=== PATIENT | female | born 1970 | race African-American/Black ===

== ENCOUNTER → 2016-08-21 | Outpatient (CLI) | payer MEDICAID ==
[2016-08-21 09:47] LABS: HEMATOCRIT 34.2 % (36.0-47.0); HGB HCT DIFFERENCE -1.2; MEAN CORPUSCULAR HEMOGLOBIN 25.9 pg (27.0-33.4); MEAN CORPUSCULAR HGB CONC 32.2 g/dL (32.0-36.0); MEAN CORPUSCULAR VOLUME 81 fl (80-97); RED BLOOD COUNT 4.25 10^6/uL (3.72-5.28); RED CELL DISTRIBUTION WIDTH 14.5 % (11.5-14.0); WHITE BLOOD COUNT 4.9 10^3/uL (4.0-10.5)
[2016-08-21 09:55] LABS: APPEARANCE,URINE SLIGHTLY-CLOUDY; BILIRUBIN,URINE NEGATIVE (NEGATIVE); GLUCOSE, URINE NEGATIVE (NEGATIVE); KETONES,URINE NEGATIVE (NEGATIVE); LEUKOCYTE ESTERASE,URINE NEGATIVE (NEGATIVE); NITRITE,URINE NEGATIVE (NEGATIVE); PROTEIN,URINE >=500 mg/dL (NEGATIVE); UROBILINOGEN,URINE NEGATIVE mg/dL (<2.0)
[2016-08-21 10:03] LABS: BACTERIA,URINE TRACE /HPF; RBC,URINE NONE SEEN /HPF
[2016-08-21 10:13] LABS: ANION GAP 14 (5-19); BLOOD UREA NITROGEN 23 mg/dL (7-20); CALCIUM 9.5 mg/dL (8.4-10.2); CARBON DIOXIDE 22 mmol/L (22-30); CHLORIDE 105 mmol/L (98-107); CREATININE RESULT 1.56 mg/dL (0.52-1.25); GLUCOSE 102 mg/dL (75-110); MAGNESIUM 2.1 mg/dL (1.6-2.3); POTASSIUM 4.3 mmol/L (3.6-5.0); SODIUM 141.3 mmol/L (137-145)
[2016-08-21 10:40] LABS: URINE CREATININE 247.9 mg/dL (15-278)
[2016-08-21 11:16] LABS: URINE PROTEIN 328.8 mg/dL (<12)
== END ==
LOC: OD 08:43
PROVIDERS: ATTEND Internal Medicine Nephrology
DX: I12.9 Hypertensive chronic kidney disease with stage 1 through stage 4 chronic kidney disease, or unspecified chronic kidney disease (principal); N18.3 Chronic kidney disease, stage 3 (moderate); R80.9 Proteinuria, unspecified
CPT/HCPCS: 36415; 80048; 81001; 82570; 83735; 84156; 85027

== ENCOUNTER → 2016-10-20 | Outpatient (CLI) | payer MEDICAID ==
[2016-10-20 16:46] LABS: HEMATOCRIT 33.7 % (36.0-47.0); HGB HCT DIFFERENCE -0.7; MEAN CORPUSCULAR HEMOGLOBIN 25.9 pg (27.0-33.4); MEAN CORPUSCULAR HGB CONC 32.7 g/dL (32.0-36.0); MEAN CORPUSCULAR VOLUME 79 fl (80-97); RED BLOOD COUNT 4.26 10^6/uL (3.72-5.28); RED CELL DISTRIBUTION WIDTH 15.6 % (11.5-14.0); WHITE BLOOD COUNT 5.4 10^3/uL (4.0-10.5)
[2016-10-20 16:56] LABS: APPEARANCE,URINE CLOUDY; BILIRUBIN,URINE NEGATIVE (NEGATIVE); GLUCOSE, URINE NEGATIVE (NEGATIVE); KETONES,URINE NEGATIVE (NEGATIVE); LEUKOCYTE ESTERASE,URINE TRACE (NEGATIVE); NITRITE,URINE NEGATIVE (NEGATIVE); PROTEIN,URINE >=500 mg/dL (NEGATIVE); URINE SPECIFIC GRAVITY 1.013; UROBILINOGEN,URINE NEGATIVE mg/dL (<2.0)
[2016-10-20 17:10] LABS: ANION GAP 16 (5-19); BLOOD UREA NITROGEN 17 mg/dL (7-20); CARBON DIOXIDE 22 mmol/L (22-30); CHLORIDE 105 mmol/L (98-107); CREATININE RESULT 1.42 mg/dL (0.52-1.25); GLUCOSE 99 mg/dL (75-110); MAGNESIUM 1.8 mg/dL (1.6-2.3); POTASSIUM 4.5 mmol/L (3.6-5.0); SODIUM 142.9 mmol/L (137-145)
[2016-10-20 17:10] LABS: URINE CREATININE 133.2 mg/dL (15-278)
[2016-10-20 17:22] LABS: URINE PROTEIN 435.8 mg/dL (<12)
== END ==
LOC: OD 15:26
PROVIDERS: ATTEND Internal Medicine Nephrology
DX: N18.3 Chronic kidney disease, stage 3 (moderate) (principal); R80.9 Proteinuria, unspecified; E83.42 Hypomagnesemia
CPT/HCPCS: 36415; 80048; 81001; 82570; 83735; 84156; 85027

== ENCOUNTER → 2016-10-23 | Outpatient (CLI) | payer MEDICAID ==
--- NOTE | 2016-10-24 10:44 | XCELERA REPORT ---
[address] [address] Lower Extremity Venous Evaluation Name: LUCRETIA JOYCE Age: 46 yrs Gender: Female : 1970 Patient Status: Outpatient Patient Location: Study Date: 10/23/2016 03:55 PM Procedure: Color flow and duplex imaging of the veins of the left lower extremity as well as the right Common Femoral vein. Reason For Study: LLE SWELLING Ordering Physician: Paulina BLAS Performed By: Nery Jackson Right Sided Venous Evaluation The right common femoral vein is fully compressible. Spontaneous and phasic flow is present in the right common femoral vein. Left Sided Venous Evaluation Normal vessel filling wall to wall, compression and augmentation as well as Colour flow down to the infrageniculate veins. Interpretation Summary No duplex evidence of DVT or obstruction in the left lower extremity nor in the right Common Femoral vein. : Paulina BLAS > Scotty Perkins
== END ==
LOC: SP 15:34
PROVIDERS: ATTEND Internal Medicine Nephrology
DX: R22.42 Localized swelling, mass and lump, left lower limb (principal)
CPT/HCPCS: 93971

== ENCOUNTER → 2016-11-30 | Outpatient (CLI) | payer MEDICAID ==
[2016-11-30 13:29] LABS: HEMOGLOBIN 11.3 g/dL (12.0-15.5); HGB HCT DIFFERENCE -1.1; MEAN CORPUSCULAR HEMOGLOBIN 25.7 pg (27.0-33.4); MEAN CORPUSCULAR HGB CONC 32.2 g/dL (32.0-36.0); MEAN CORPUSCULAR VOLUME 80 fl (80-97); RED BLOOD COUNT 4.39 10^6/uL (3.72-5.28); RED CELL DISTRIBUTION WIDTH 15.5 % (11.5-14.0); WHITE BLOOD COUNT 4.9 10^3/uL (4.0-10.5)
[2016-11-30 13:53] LABS: ANION GAP 13 (5-19); BLOOD UREA NITROGEN 17 mg/dL (7-20); CALCIUM 9.4 mg/dL (8.4-10.2); CARBON DIOXIDE 21 mmol/L (22-30); CHLORIDE 104 mmol/L (98-107); CREATININE RESULT 1.33 mg/dL (0.52-1.25); GLUCOSE 91 mg/dL (75-110); MAGNESIUM 1.8 mg/dL (1.6-2.3); POTASSIUM 4.5 mmol/L (3.6-5.0); SODIUM 138.1 mmol/L (137-145)
== END ==
LOC: OD 11:37
PROVIDERS: ATTEND Internal Medicine Nephrology
DX: I12.9 Hypertensive chronic kidney disease with stage 1 through stage 4 chronic kidney disease, or unspecified chronic kidney disease (principal); N18.3 Chronic kidney disease, stage 3 (moderate); E83.42 Hypomagnesemia
CPT/HCPCS: 36415; 80048; 83735; 85027

== ENCOUNTER 2017-10-12 20:45 | Emergency (ER) | payer OTHER, MEDICAID ==
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
[2017-10-12] MEDS ORDERED: DIAZEPAM 5 MG TABLET PO ONE (23:33)
[2017-10-12 23:47] VITALS: BP 205/101
== END 2017-10-12 23:53 | disposition home or self-care (01) ==
LOC: EEVIPCON 20:45 → ER 20:45
DX: M62.830 Muscle spasm of back (principal); M54.40 Lumbago with sciatica, unspecified side; V49.00XA Driver injured in collision with unspecified motor vehicles in nontraffic accident, initial encounter; Y93.89 Activity, other specified; Y92.481 Parking lot as the place of occurrence of the external cause; I95.9 Hypotension, unspecified; R51 Headache; R20.2 Paresthesia of skin; F17.200 Nicotine dependence, unspecified, uncomplicated; J45.909 Unspecified asthma, uncomplicated; I10 Essential (primary) hypertension; Z79.899 Other long term (current) drug therapy; Z86.69 Personal history of other diseases of the nervous system and sense organs; Z98.1 Arthrodesis status; Z88.6 Allergy status to analgesic agent; Z88.8 Allergy status to other drugs, medicaments and biological substances; Z88.5 Allergy status to narcotic agent; Z91.012 Allergy to eggs; Z91.048 Other nonmedicinal substance allergy status; Z91.018 Allergy to other foods; Z87.892 Personal history of anaphylaxis; Z88.3 Allergy status to other anti-infective agents
CPT/HCPCS: 99283

== ENCOUNTER → 2018-03-25 | Outpatient (CLI) | payer MEDICAID ==
[2018-03-25 09:18] LABS: URINE AMPHETAMINES SCREEN NEGATIVE; URINE BARBITURATES SCREEN NEGATIVE; URINE BENZODIAZEPINES SCREEN NEGATIVE; URINE COCAINE SCREEN NEGATIVE; URINE PHENCYCLIDINE SCREEN NEGATIVE
[2018-03-25 09:25] LABS: URINE MARIJUANA (THC) SCREEN NEGATIVE
[2018-03-25 10:11] LABS: URINE METHADONE SCREEN UNCONFIRMED POSITIVE
--- NOTE | 2018-03-25 13:18 | EKG REPORT ---
SEVERITY:- ABNORMAL ECG - SINUS RHYTHM FIRST DEGREE AV BLOCK PROBABLE LEFT ATRIAL ABNORMALITY LVH WITH SECONDARY REPOLARIZATION ABNORMALITY BORDERLINE PROLONGED QT INTERVAL : Confirmed by: El Sun MD 25-Mar-2018 13:18:21
== END ==
LOC: OD 07:55
PROVIDERS: ATTEND Physician Assistant
DX: G89.4 Chronic pain syndrome (principal); Z79.891 Long term (current) use of opiate analgesic
CPT/HCPCS: 80307; 80358; 93005; 93010

== ENCOUNTER → 2018-05-16 | Outpatient (CLI) | payer MEDICAID ==
[2018-05-16 10:47] LABS: ALANINE AMINOTRANSFERASE 19 U/L (9-52); ALBUMIN 3.8 g/dL (3.5-5.0); ALKALINE PHOSPHATASE 83 U/L (38-126); ANION GAP 11 (5-19); ASPARTATE AMINO TRANSFERASE 25 U/L (14-36); BILIRUBIN,DIRECT 0.3 mg/dL (0.0-0.4); BILIRUBIN,TOTAL 0.6 mg/dL (0.2-1.3); BLOOD UREA NITROGEN 19 mg/dL (7-20); CALCIUM 9.2 mg/dL (8.4-10.2); CARBON DIOXIDE 21 mmol/L (22-30); CHLORIDE 105 mmol/L (98-107); GLUCOSE 92 mg/dL (75-110); POTASSIUM 4.4 mmol/L (3.6-5.0); SODIUM 137.2 mmol/L (137-145); TOTAL PROTEIN 7.1 g/dL (6.3-8.2)
--- NOTE | 2018-05-16 22:48 | EKG REPORT ---
SEVERITY:- ABNORMAL ECG - SINUS RHYTHM PROBABLE LEFT VENTRICULAR HYPERTROPHY ABNORMAL T, CONSIDER ISCHEMIA, LATERAL LEADS BORDERLINE PROLONGED QT INTERVAL : Confirmed by: Sonu Talamantes 16-May-2018 22:47:19
== END ==
LOC: OD 08:17
PROVIDERS: ATTEND Physician Assistant
DX: G89.4 Chronic pain syndrome (principal)
CPT/HCPCS: 36415; 80053; 93005; 93010

== ENCOUNTER 2018-06-25 15:45 | Day surgery (SDC) | payer MEDICAID ==
[2018-06-25] MEDS ORDERED: MIDAZOLAM 2 MG/2 ML INJ ONE (16:33)
[2018-06-25] MEDS ORDERED: NALOXONE HCL INJ/PF 0.4 MG/1 ML SDV ONE (16:33)
[2018-06-25] MEDS ORDERED: FENTANYL CITRATE INJ/PF 100 MCG/2 ML AMPUL ONE (16:33)
[2018-06-25] MEDS ORDERED: ONDANSETRON HCL INJ/PF 4 MG/2 ML SDV ONE (16:33)
[2018-06-25] MEDS ORDERED: GLUCAGON,HUMAN RECOMB 1 MG INJ ONE (16:33)
[2018-06-25] MEDS ORDERED: DIPHENHYDRAMINE HCL 50 MG/ML VIAL ONE (16:33)
[2018-06-25] MEDS ORDERED: FLUMAZENIL INJ 0.5 MG/5 ML VIAL ONE (16:33)
[2018-06-25] MEDS ORDERED: EPINEPHRINE INJ 1 MG/10 ML DISP.SYRIN ONE (16:33)
--- NOTE | 2018-06-25 17:07 | Operative Report ---
Operative Report DATE OF SURGERY: 06/25/18 Operative Report: Pre-op diagnosis: Heartburn Post-op diagnosis: Antral gastritis Surgery: Esophagogastroduodenoscopy with Medications: Versed 2mg Fentanyl 100mcg IV push Tissue removed: Antral and gastric body biopsy for pathology Procedure: After informed consent obtained from patient, the throat was sprayed with Hurricane and conscious sedation was achieved. The upper endoscope was inserted into the esophagus under direct vision and advanced into the stomach. The duodenum was entered and examined to the second part. Endoscope was then slowly pulled out of the patient as the mucosa was examined into details. Patient tolerated procedure well. Findings Esophagus: Normal Z-line at: 40 cm Antrum: Mild erythema Body: Normal Fundus: Normal Duodenum first part: Normal Duodenum second part: Normal Plan: Await pathology. Continue Prilosec OPERATION: .
[2018-06-25] MEDS ORDERED: PROMETHAZINE HCL INJ 25 MG/1 ML VIAL ONE (17:46)
[2018-06-25 17:59] VITALS: BP 215/127
[2018-06-25] MEDS ORDERED: CLONIDINE HCL 0.1 MG TABLET PO ONE (18:00)
[2018-06-25] MEDS ORDERED: PROMETHAZINE HCL 25 MG TABLET PO ONE (18:00)
[2018-06-25] MEDS ORDERED: METOPROLOL SUCCINATE 50 MG TAB.SR.24H PO ONE (18:00)
== END 2018-06-25 19:18 | disposition home or self-care (01) ==
LOC: END 15:45
PROVIDERS: ATTEND Internal Medicine Gastroenterology
DX: K29.50 Unspecified chronic gastritis without bleeding (principal); K21.9 Gastro-esophageal reflux disease without esophagitis; I10 Essential (primary) hypertension; D64.9 Anemia, unspecified; J45.909 Unspecified asthma, uncomplicated; I20.9 Angina pectoris, unspecified; I42.9 Cardiomyopathy, unspecified; Z79.899 Other long term (current) drug therapy; Z79.51 Long term (current) use of inhaled steroids; I25.2 Old myocardial infarction; K58.9 Irritable bowel syndrome, unspecified; K44.9 Diaphragmatic hernia without obstruction or gangrene
CPT/HCPCS: 43239; 88305 ×2; J2250; J3490 ×3; J3010; J0171; J1200; J1610; J2310; J2405; J2550

== ENCOUNTER 2018-09-28 17:18 | Emergency (ER) | payer MEDICAID ==
[2018-09-28] MEDS ORDERED: PROMETHAZINE HCL 25 MG TABLET PO ONE (17:46)
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
[2018-09-28 18:48] LABS: ABSOLUTE BASOPHILS # (AUTO) 0.1 10^3/uL (0.0-0.2); ABSOLUTE EOSINOPHILS # (AUTO) 0.1 10^3/uL (0.0-0.6); ABSOLUTE LYMPHOCYTES (AUTO) 1.4 10^3/uL (0.5-4.7); ABSOLUTE MONOCYTES (AUTO) 0.3 10^3/uL (0.1-1.4); ABSOLUTE NEUT (AUTO) 3.9 10^3/uL (1.7-8.2); BASOPHILS % (AUTO) 2.2 % (0-2); EOSINOPHILS % (AUTO) 1.8 % (0-6); HEMATOCRIT 32.5 % (36.0-47.0); HEMOGLOBIN 10.4 g/dL (12.0-15.5); LYMPHOCYTES % (AUTO) 23.4 % (13-45); MEAN CORPUSCULAR HEMOGLOBIN 25.1 pg (27.0-33.4); MEAN CORPUSCULAR HGB CONC 31.9 g/dL (32.0-36.0); MEAN CORPUSCULAR VOLUME 79 fl (80-97); MONOCYTES % (AUTO) 5.7 % (3-13); PLATELET COUNT 261 10^3/uL (150-450); RED BLOOD COUNT 4.13 10^6/uL (3.72-5.28); RED CELL DISTRIBUTION WIDTH 15.8 % (11.5-14.0); SEGMENTED NEUTROPHILS % (AUTO) 66.9 % (42-78); TOTAL CELLS COUNTED % (AUTO) 100 %; WHITE BLOOD COUNT 5.8 10^3/uL (4.0-10.5)
[2018-09-28 18:50] LABS: APPEARANCE,URINE SLIGHTLY-CLOUDY; BILIRUBIN,URINE NEGATIVE (NEGATIVE); COLOR,URINE YELLOW; GLUCOSE, URINE NEGATIVE (NEGATIVE); KETONES,URINE NEGATIVE (NEGATIVE); LEUKOCYTE ESTERASE,URINE NEGATIVE (NEGATIVE); NITRITE,URINE NEGATIVE (NEGATIVE); PROTEIN,URINE >=500 mg/dL (NEGATIVE); URINE SPECIFIC GRAVITY 1.024
[2018-09-28 19:05] LABS: ALBUMIN 3.9 g/dL (3.5-5.0); ALKALINE PHOSPHATASE 71 U/L (38-126); ANION GAP 7 (5-19); ASPARTATE AMINO TRANSFERASE 20 U/L (14-36); BILIRUBIN,DIRECT 0.3 mg/dL (0.0-0.4); BILIRUBIN,TOTAL 0.4 mg/dL (0.2-1.3); BLOOD UREA NITROGEN 29 mg/dL (7-20); CALCIUM 9.3 mg/dL (8.4-10.2); CARBON DIOXIDE 26 mmol/L (22-30); CHLORIDE 108 mmol/L (98-107); GLUCOSE 104 mg/dL (75-110); POTASSIUM 4.1 mmol/L (3.6-5.0); TOTAL PROTEIN 7.2 g/dL (6.3-8.2)
[2018-09-28] MEDS ORDERED: PROMETHAZINE HCL INJ 25 MG/1 ML VIAL IM ONE (20:40)
[2018-09-28] MEDS ORDERED: HYDROMORPHONE HCL INJ/PF 2 MG/ML AMPULE IV ONE (20:41)
[2018-09-28] MEDS ORDERED: DEXAMETHASONE SOD PHOS INJ 10 MG/1 ML VIAL IV ONE (20:41)
[2018-09-28] MEDS ORDERED: NORMAL SALINE 500 ML IV ONE (20:41)
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
[2018-09-28 23:15] VITALS: BP 210/121
== END 2018-09-28 23:05 | disposition home or self-care (01) ==
LOC: ER 17:18
DX: R51 Headache (principal); M54.5 Low back pain; G89.29 Other chronic pain; M54.9 Dorsalgia, unspecified; M54.2 Cervicalgia; R11.10 Vomiting, unspecified; I50.9 Heart failure, unspecified; I11.0 Hypertensive heart disease with heart failure; J45.909 Unspecified asthma, uncomplicated
CPT/HCPCS: 99283; 96372; 96361; 96374; 96375; 36415; 85025; 81025; 80053; 81001; J1170; J2550; J3490; J7040; J1100

== ENCOUNTER 2018-10-06 17:55 | Emergency (ER) | payer MEDICAID ==
[2018-10-06] MEDS ORDERED: PROMETHAZINE HCL INJ 25 MG/1 ML VIAL IV ONE (19:44)
--- NOTE | 2018-10-06 19:50 | ER Document Report ---
ED Medical Screen (RME) - General Chief Complaint: Headache Stated Complaint: MIGRAINE Time Seen by Provider: 10/06/18 19:30 Primary Care Provider: VJ LEBLANC MD [Primary Care Provider] - Follow up as needed Notes: Patient is a 48-year-old female with a history of chronic neck and back pain and migraines who presents to the emergency department with back pain, neck pain, and a migraine. She states that she has had her pain for the past 2 weeks. She had neck surgery in May 2015 and back surgery in November 2015. She states that she has titanium rods in them. Her back surgeon is Dr. Goode in [place]. Patient is currently on oxycodone her last dose was around 3:00 this afternoon. States that her oxycodone does not help very much. She is also on Phenergan and her last dose was around noon. Denies any loss of bladder or bowel function. Denies any fever. Exam: Tender neck and spine. I have greeted and performed a rapid initial assessment of this patient. A comprehensive ED assessment and evaluation of the patient, analysis of test results and completion of medical decision making process will be conducted by an additional ED providers. TRAVEL OUTSIDE OF THE [place] IN LAST 30 DAYS: No - Related Data Allergies/Adverse Reactions: aspirin [Aspirin] Allergy (Severe, Verified 06/25/18 16:07) Respiratory arrest diclofenac potassium [From Cataflam] Allergy (Severe, Verified 06/25/18 16:07) Anaphylaxis ibuprofen [From Motrin] Allergy (Severe, Verified 06/25/18 16:07) ketorolac tromethamine [From Toradol] Allergy (Severe, Verified 06/25/18 16:07) naproxen Allergy (Severe, Verified 06/25/18 16:07) prazosin [Prazosin] Allergy (Severe, Verified 06/25/18 16:07) Facial swelling tramadol HCl [From Ultram] Allergy (Severe, Verified 06/25/18 16:07) lisinopril [Lisinopril] Allergy (Intermediate, Verified 06/25/18 16:07) Facial swelling sumatriptan [From Imitrex] Allergy (Intermediate, Verified 06/25/18 16:07) zolpidem tartrate [From Ambien] Allergy (Intermediate, Verified 06/25/18 16:07) lactose Allergy (Mild, Verified 06/25/18 16:07) metoclopramide HCl [From Reglan] Allergy (Mild, Verified 06/25/18 16:07) prochlorperazine edisylate [From Compazine] Allergy (Mild, Verified 06/25/18 16:07) Tremors prochlorperazine maleate [From Compazine] Allergy (Mild, Verified 06/25/18 16:07) Tremors egg [Egg] Allergy (Verified 06/25/18 16:07) medroxyprogesterone acetate [From Depo-Provera] Adverse Reaction (Severe, Verified 06/25/18 16:07) Hemorrhage amlodipine besylate [From Norvasc] Adverse Reaction (Intermediate, Verified 06/25/18 16:07) Migraine nisoldipine [From Sular] Adverse Reaction (Intermediate, Verified 06/25/18 16:07) Hypertension arificial sweetners Allergy (Severe, Uncoded 06/25/18 16:07) polyester material Allergy (Mild, Uncoded 06/25/18 16:07) Urticaria amovig Allergy (Uncoded 09/28/18 17:29) emgalility Allergy (Uncoded 09/28/18 17:29) water Adverse Reaction (Intermediate, Uncoded 06/25/18 16:07) VOMITING Past Medical History - Social History Chew tobacco use (# tins/day): No Frequency of alcohol use: None Drug Abuse: None - Past Medical History Cardiac Medical History: Reports: Hx Congestive Heart Failure, Hx Heart Attack - 2004, Hx Hypercholesterolemia, Hx Hypertension, Hx Peripheral Vascular Disease, Hx Heart Murmur Denies: Hx Atrial Fibrillation, Hx Coronary Artery Disease, Hx Pulmonary Em bolism Pulmonary Medical History: Reports: Hx Asthma, Hx Pneumonia - February 2011, hospitalized Denies: Hx Bronchitis, Hx COPD, Hx Respiratory Failure, Hx Sleep Apnea, Hx Tuberculosis Neurological Medical History: Reports: Hx Migraine. Denies: Hx Cerebrovascular Accident, Hx Seizures Renal/ Medical History: Reports: Hx Renal Insufficiency. Denies: Hx End Stage Renal Disease, Hx Kidney Stones, Hx Ovarian Cysts, Hx Peritoneal Dialysis, Hx Pelvic Inflammatory Disease Malignancy Medical History: Denies: Hx Breast Cancer, Hx Cervical Cancer, Hx Leukemia, Hx Lung Cancer GI Medical History: Reports: Hx Gastroesophageal Reflux Disease, Hx Hiatal Hernia, Hx Irritable Bowel. Denies: Hx Crohn's Disease, Hx Liver Failure, Hx Pancreatitis, Hx Ulcer Musculoskeltal Medical History: Reports Hx Arthritis, Denies Hx Fibromyalgia, Denies Hx Multiple Sclerosis, Denies Hx Muscular Dystrophy Psychiatric Medical History: Reports: Hx Bipolar Disorder, Hx Depression - anxiety, Hx Post Traumatic Stress Disorder Denies: Hx Dementia, Hx Schizophrenia Traumatic Medical History: Denies: Hx Fractures Infectious Medical History: Denies: Hx HIV Past Surgical History: Reports: Hx Section - 3, Hx Cholecystectomy, Hx Genitourinary Surgery, Hx Hysterectomy, Hx Neurologic Surgery - neck, back surg 2016, Hx Oral Surgery, Hx Orthopedic Surgery - Bilateral carpal tunnel release, bilateral ulnar nerve transposition., Hx Tubal Ligation. Denies: Hx Appendectomy, Hx Bowel Surgery, Hx Colostomy, Hx Coronary Artery Bypass Graft, Hx Gastric Bypass Surgery, Hx Herniorrhaphy, Hx Mastectomy, Hx Pacemaker, Hx Tonsillectomy - Immunizations Immunizations up to date: Yes Hx Diphtheria, Pertussis, Tetanus Vaccination: Yes Physical Exam - Vital signs Vitals: Temp Pulse Resp BP Pulse Ox 98.7 F 95 18 217/122 H 100 10/06/18 18:19 10/06/18 18:19 10/06/18 18:19 10/06/18 18:19 10/06/18 18:19 Course - Vital Signs Vital signs: Temp Pulse Resp BP Pulse Ox 98.7 F 95 18 217/122 H 100 10/06/18 18:19 10/06/18 18:19 10/06/18 18:19 10/06/18 18:19 10/06/18 18:19 Doctor's Discharge - Discharge Referrals: VJ LEBLANC MD [Primary Care Provider] - Follow up as needed
[2018-10-06] MEDS ORDERED: PROMETHAZINE HCL 25 MG TABLET PO ONE (19:54)
[2018-10-06 20:44] LABS: ABSOLUTE BASOPHILS # (AUTO) 0.1 10^3/uL (0.0-0.2); ABSOLUTE EOSINOPHILS # (AUTO) 0.1 10^3/uL (0.0-0.6); ABSOLUTE LYMPHOCYTES (AUTO) 1.1 10^3/uL (0.5-4.7); ABSOLUTE MONOCYTES (AUTO) 0.3 10^3/uL (0.1-1.4); ABSOLUTE NEUT (AUTO) 4.6 10^3/uL (1.7-8.2); BASOPHILS % (AUTO) 1.1 % (0-2); EOSINOPHILS % (AUTO) 1.8 % (0-6); HEMATOCRIT 31.1 % (36.0-47.0); HEMOGLOBIN 9.9 g/dL (12.0-15.5); LYMPHOCYTES % (AUTO) 17.3 % (13-45); MEAN CORPUSCULAR HEMOGLOBIN 24.8 pg (27.0-33.4); MEAN CORPUSCULAR VOLUME 78 fl (80-97); MONOCYTES % (AUTO) 5.5 % (3-13); PLATELET COUNT 287 10^3/uL (150-450); RED CELL DISTRIBUTION WIDTH 15.9 % (11.5-14.0); SEGMENTED NEUTROPHILS % (AUTO) 74.3 % (42-78); TOTAL CELLS COUNTED % (AUTO) 100 %; WHITE BLOOD COUNT 6.2 10^3/uL (4.0-10.5)
[2018-10-06 21:21] LABS: ALKALINE PHOSPHATASE 76 U/L (38-126); ANION GAP 11 (5-19); ASPARTATE AMINO TRANSFERASE 25 U/L (14-36); BILIRUBIN,DIRECT 0.3 mg/dL (0.0-0.4); BILIRUBIN,TOTAL 0.5 mg/dL (0.2-1.3); BLOOD UREA NITROGEN 26 mg/dL (7-20); CALCIUM 9.3 mg/dL (8.4-10.2); CARBON DIOXIDE 24 mmol/L (22-30); CHLORIDE 105 mmol/L (98-107); GLUCOSE 101 mg/dL (75-110); POTASSIUM 4.5 mmol/L (3.6-5.0); TOTAL PROTEIN 7.2 g/dL (6.3-8.2)
[2018-10-06] MEDS ORDERED: DEXAMETHASONE SOD PHOS INJ 10 MG/1 ML VIAL IV ONE (22:45)
[2018-10-06] MEDS ORDERED: HYDROMORPHONE HCL INJ/PF 2 MG/ML AMPULE IV ONE (22:46)
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
[2018-10-06] MEDS ORDERED: DEXAMETHASONE SOD PHOS INJ 10 MG/1 ML VIAL IM ONE (22:49)
[2018-10-06] MEDS ORDERED: HYDROMORPHONE HCL INJ/PF 2 MG/ML AMPULE IM ONE (22:50)
[2018-10-06 23:08] VITALS: BP 225/132
== END 2018-10-06 23:09 | disposition home or self-care (01) ==
LOC: ER 17:55
DX: G89.29 Other chronic pain (principal); M54.5 Low back pain; Z79.891 Long term (current) use of opiate analgesic; M54.2 Cervicalgia; D64.9 Anemia, unspecified; N28.9 Disorder of kidney and ureter, unspecified; R51 Headache; R11.10 Vomiting, unspecified; I10 Essential (primary) hypertension; J45.909 Unspecified asthma, uncomplicated; Z98.890 Other specified postprocedural states; Z88.8 Allergy status to other drugs, medicaments and biological substances; Z87.892 Personal history of anaphylaxis; Z88.5 Allergy status to narcotic agent; Z88.6 Allergy status to analgesic agent; Z91.018 Allergy to other foods; Z91.048 Other nonmedicinal substance allergy status; Z86.69 Personal history of other diseases of the nervous system and sense organs
CPT/HCPCS: 36415; 85025; 80053; J1170; J3490; J1100; 96372; 96374; 99283

== ENCOUNTER → 2018-10-26 | Outpatient (CLI) | payer MEDICAID ==
--- NOTE | 2018-10-26 12:12 | RADIOLOGY REPORT (SQ) ---
EXAM DESCRIPTION: CERV SP 3 VIEW OR LESS; L SPINE WHOLE COMPLETED DATE/TIME: 10/26/2018 11:59 am REASON FOR STUDY: (M54.12)CERVICAL RADICULOPATHY;(M54.16)LUMBAR RADICULOPATHY COMPARISON: See below. FINDINGS: Three views cervical spine: 2016 comparison. Mildly limiting artifact from external sourc es particularly on the AP views. Osteopenic. No malalignment or fracture. C4 through C6 anterior i nstrumentation looks grossly intact. Lung apices are clear. Five view lumbosacral spine: Grade 1 listhesis at L4-5. Facet overgrowth likely explains this, no d efinite pars defect allowing for degenerative irregularity. Previous L4 decompression. No fracture. Disc space narrowing at several levels. TECHNICAL DOCUMENTATION: JOB ID: [id number] Reading location - IP/workstation name: [email or web address]
--- NOTE | 2018-10-26 12:12 | RADIOLOGY REPORT (SQ) ---
EXAM DESCRIPTION: CERV SP 3 VIEW OR LESS; L SPINE WHOLE COMPLETED DATE/TIME: 10/26/2018 11:59 am REASON FOR STUDY: (M54.12)CERVICAL RADICULOPATHY;(M54.16)LUMBAR RADICULOPATHY COMPARISON: See below. FINDINGS: Three views cervical spine: 2016 comparison. Mildly limiting artifact from external sourc es particularly on the AP views. Osteopenic. No malalignment or fracture. C4 through C6 anterior i nstrumentation looks grossly intact. Lung apices are clear. Five view lumbosacral spine: Grade 1 listhesis at L4-5. Facet overgrowth likely explains this, no d efinite pars defect allowing for degenerative irregularity. Previous L4 decompression. No fracture. Disc space narrowing at several levels. TECHNICAL DOCUMENTATION: JOB ID: [id number] Reading location - IP/workstation name: [email or web address]
== END ==
LOC: RAD 11:07
PROVIDERS: ATTEND Internal Medicine
DX: M54.12 Radiculopathy, cervical region (principal); M54.16 Radiculopathy, lumbar region
CPT/HCPCS: 72040; 72110

== ENCOUNTER → 2018-11-19 | Outpatient (CLI) | payer MEDICAID ==
[~2018-11-19] MED LIST: DIAZEPAM 5 MG TABLET ONE
--- NOTE | 2018-11-19 17:10 | RADIOLOGY REPORT (SQ) ---
EXAM DESCRIPTION: MRI CERVICAL SPINE WITHOUT COMPLETED DATE/TIME: 11/19/2018 2:01 pm REASON FOR STUDY: CERVICAL RADICULOPATHY (M54.12) M54.12 RADICULOPATHY, CERVICAL REGION COMPARISON: 09/13/2015 TECHNIQUE: Sagittal and Axial imaging includes T1, T2, STIR and gradient echo sequences. LIMITATIONS: None. FINDINGS: ALIGNMENT: Normal. VERTEBRAE: Intact. BONE MARROW: Normal. No marrow replacement or reactive changes. DISCS: Normal. No significant abnormal signal or loss of height. HARDWARE: Anterior cervical fusion C4 through C6. CORD AND BASE OF BRAIN: Normal in size and signal intensity. SOFT TISSUES: No soft tissue masses. C1-C2: No significant spinal stenosis. C2-C3: No significant spinal stenosis or exit foraminal stenosis. C3-C4: Minimal disc osteophyte complex. C4-C5: No significant spinal stenosis or exit foraminal stenosis. C5-C6: No significant spinal stenosis or exit foraminal stenosis. C6-C7: Minimal disc osteophyte complex. C7-T1: No significant spinal stenosis or exit foraminal stenosis. UPPER THORACIC: Incompletely imaged. No significant spinal stenosis or exit foraminal stenosis. OTHER: No other significant finding. IMPRESSION: Surgical changes C4 through C6. Minimal disc osteophyte complexes C3-4 and C6-7 without spinal stenosis or exit foraminal stenosis. TECHNICAL DOCUMENTATION: JOB ID: [id number] [employer]- All Rights Reserved Reading location - IP/workstation name: [email or web address]
== END ==
LOC: RAD 12:15
PROVIDERS: ATTEND Internal Medicine
DX: M54.12 Radiculopathy, cervical region (principal)
CPT/HCPCS: 72141; J3490

== ENCOUNTER 2019-03-27 14:43 | Inpatient (IN) | payer MEDICAID ==
--- NOTE | 2019-03-27 14:59 | ER Document Report ---
ED Medical Screen (RME) - General Chief Complaint: Leg Swelling Stated Complaint: LEG SWELLING Time Seen by Provider: 03/27/19 14:57 Primary Care Provider: FLAVIA MOORE MD [Primary Care Provider] - Follow up as needed Mode of Arrival: Wheelchair Information source: Patient Notes: 49-year-old female presented to ED for increasing swelling to both legs all the way up to the waist. She does have a history of stage III renal failure, congestive heart failure, cardiomegaly, high blood pressure, sleep apnea, COPD, and asthma. She also has chronic migraines IBS. She states his swelling has been going progressively over the last month. He states she went to [facility] pain management this morning and they sent her to the emergency room to be evaluated. Family doctor is Dr. Sheffield I have greeted and performed a rapid initial assessment of this patient. A comprehensive ED assessment and evaluation of the patient, analysis of test results and completion of medical decision making process will be conducted by an additional ED providers. TRAVEL OUTSIDE OF THE [place] IN LAST 30 DAYS: No - Related Data Allergies/Adverse Reactions: aspirin [Aspirin] Allergy (Severe, Verified 06/25/18 16:07) Respiratory arrest diclofenac potassium [From Cataflam] Allergy (Severe, Verified 06/25/18 16:07) Anaphylaxis ibuprofen [From Motrin] Allergy (Severe, Verified 06/25/18 16:07) ketorolac tromethamine [From Toradol] Allergy (Severe, Verified 06/25/18 16:07) naproxen Allergy (Severe, Verified 06/25/18 16:07) prazosin [Prazosin] Allergy (Severe, Verified 06/25/18 16:07) Facial swelling tramadol HCl [From Ultram] Allergy (Severe, Verified 06/25/18 16:07) lisinopril [Lisinopril] Allergy (Intermediate, Verified 06/25/18 16:07) Facial swelling sumatriptan [From Imitrex] Allergy (Intermediate, Verified 06/25/18 16:07) zolpidem tartrate [From Ambien] Allergy (Intermediate, Verified 06/25/18 16:07) lactose Allergy (Mild, Verified 06/25/18 16:07) metoclopramide HCl [From Reglan] Allergy (Mild, Verified 06/25/18 16:07) prochlorperazine edisylate [From Compazine] Allergy (Mild, Verified 06/25/18 16:07) Tremors prochlorperazine maleate [From Compazine] Allergy (Mild, Verified 06/25/18 16:07) Tremors egg [Egg] Allergy (Verified 06/25/18 16:07) medroxyprogesterone acetate [From Depo-Provera] Adverse Reaction (Severe, Verified 06/25/18 16:07) Hemorrhage amlodipine besylate [From Norvasc] Adverse Reaction (Intermediate, Verified 06/25/18 16:07) Migraine nisoldipine [From Sular] Adverse Reaction (Intermediate, Verified 06/25/18 16:07) Hypertension arificial sweetners Allergy (Severe, Uncoded 06/25/18 16:07) polyester material Allergy (Mild, Uncoded 06/25/18 16:07) Urticaria amovig Allergy (Uncoded 09/28/18 17:29) emgalility Allergy (Uncoded 09/28/18 17:29) water Adverse Reaction (Intermediate, Uncoded 06/25/18 16:07) VOMITING Past Medical History - Past Medical History Cardiac Medical History: Reports: Hx Congestive Heart Failure, Hx Heart Attack - 2004, Hx Hypercholesterolemia, Hx Hypertension, Hx Peripheral Vascular Disease, Hx Heart Murmur Denies: Hx Atrial Fibrillation, Hx Coronary Artery Disease, Hx Pulmonary Embolism Pulmonary Medical History: Reports: Hx Asthma, Hx Pneumonia - February 2011, hospitalized Denies: Hx Bronchitis, Hx COPD, Hx Respiratory Failure, Hx Sleep Apnea, Hx Tuberculosis Neurological Medical History: Reports: Hx Migraine. Denies: Hx Cerebrovascular Accident, Hx Seizures, Hx Parkinson's Disease Renal/ Medical History: Reports: Hx Renal Insufficiency. Denies: Hx End Stage Renal Disease, Hx Kidney Stones, Hx Ovarian Cysts, Hx Peritoneal Dialysis, Hx Pelvic Inflammatory Disease Malignancy Medical History: Denies: Hx Breast Cancer, Hx Cervical Cancer, Hx Leukemia, Hx Lung Cancer GI Medical History: Reports: Hx Gastroesophageal Reflux Disease, Hx Hiatal Hernia, Hx Irritable Bowel. Denies: Hx Crohn's Disease, Hx Liver Failure, Hx Pancreatitis, Hx Ulcer Musculoskeltal Medical History: Reports Hx Arthritis, Denies Hx Fibromyalgia, Denies Hx Multiple Sclerosis, Denies Hx Muscular Dystrophy Psychiatric Medical History: Reports: Hx Bipolar Disorder, Hx Depression - anxiety, Hx Post Traumatic Stress Disorder Denies: Hx Dementia, Hx Schizophrenia Traumatic Medical History: Denies: Hx Fractures Infectious Medical History: Denies: Hx HIV Past Surgical History: Reports: Hx Section - 3, Hx Cholecystectomy, Hx Genitourinary Surgery, Hx Hysterectomy, Hx Neurologic Surgery - neck, back surg 2016, Hx Oral Surgery, Hx Orthopedic Surgery - Bilateral carpal tunnel release, bilateral ulnar nerve transposition., Hx Tubal Ligation. Denies: Hx Appendectomy, Hx Bowel Surgery, Hx Colostomy, Hx Coronary Artery Bypass Graft, Hx Gastric Bypass Surgery, Hx Herniorrhaphy, Hx Mastectomy, Hx Pacemaker, Hx Tonsillectomy - Immunizations Immunizations up to date: Yes Hx Diphtheria, Pertussis, Tetanus Vaccination: Yes Physical Exam - Vital signs Vitals: Temp Pulse Resp BP Pulse Ox 99.8 F 111 H 22 H 227/133 H 92 03/27/19 14:52 03/27/19 14:52 03/27/19 14:52 03/27/19 14:52 03/27/19 14:52 Course - Vital Signs Vital signs: Temp Pulse Resp BP Pulse Ox 99.8 F 111 H 22 H 227/133 H 92 03/27/19 14:52 03/27/19 14:52 03/27/19 14:52 03/27/19 14:52 03/27/19 14:52 Doctor's Discharge - Discharge Referrals: FLAVIA MOORE MD [Primary Care Provider] - Follow up as needed
--- NOTE | 2019-03-27 15:57 | RADIOLOGY REPORT (SQ) ---
EXAM DESCRIPTION: CHEST 2 VIEWS COMPLETED DATE/TIME: 03/27/2019 3:20 pm REASON FOR STUDY: Increasing pedal edema COMPARISON: 11/13/2015 EXAM PARAMETERS: NUMBER OF VIEWS: two views TECHNIQUE: Digital Frontal and Lateral radiographic views of the chest acquired. RADIATION DOSE: NA LIMITATIONS: none FINDINGS: LUNGS AND PLEURA: No opacities, masses or pneumothorax. No pleural effusion. MEDIASTINUM AND HILAR STRUCTURES: No masses or contour abnormalities. HEART AND VASCULAR STRUCTURES: Cardiomegaly. No pulmonary edema. BONES: No acute findings. HARDWARE: None in the chest. OTHER: No other significant finding. IMPRESSION: Cardiomegaly without pulmonary edema. TECHNICAL DOCUMENTATION: JOB ID: [id number] [employer]- All Rights Reserved Reading location - IP/workstation name: [email or web address]
[2019-03-27] MEDS ORDERED: ACETAMINOPHEN 325 MG TABLET PO ONE (17:35)
[2019-03-27 17:51] LABS: HEMATOCRIT 30.8 % (36.0-47.0); HEMOGLOBIN 9.9 g/dL (12.0-15.5); MEAN CORPUSCULAR HEMOGLOBIN 23.4 pg (27.0-33.4); MEAN CORPUSCULAR HGB CONC 32.1 g/dL (32.0-36.0); MEAN CORPUSCULAR VOLUME 73 fl (80-97); PLATELET COUNT 322 10^3/uL (150-450); RED BLOOD COUNT 4.23 10^6/uL (3.72-5.28); RED CELL DISTRIBUTION WIDTH 18.5 % (11.5-14.0); WHITE BLOOD COUNT 5.5 10^3/uL (4.0-10.5)
[2019-03-27 18:08] LABS: ALBUMIN 3.5 g/dL (3.5-5.0); ALKALINE PHOSPHATASE 85 U/L (38-126); ANION GAP 8 (5-19); ASPARTATE AMINO TRANSFERASE 30 U/L (14-36); BILIRUBIN,DIRECT 0.1 mg/dL (0.0-0.4); BILIRUBIN,TOTAL 0.7 mg/dL (0.2-1.3); BLOOD UREA NITROGEN 32 mg/dL (7-20); CARBON DIOXIDE 24 mmol/L (22-30); CHLORIDE 107 mmol/L (98-107); GLUCOSE 87 mg/dL (75-110); POTASSIUM 4.2 mmol/L (3.6-5.0); TOTAL PROTEIN 7.4 g/dL (6.3-8.2)
[2019-03-27 18:17] LABS: ABSOLUTE LYMPHOCYTES# (MANUAL) 0.7 10^3/uL (0.5-4.7); ABSOLUTE MONOCYTES # (MANUAL) 0.4 10^3/uL (0.1-1.4); BASOPHILS % (MANUAL) 0 % (0-2); EOSINOPHILS % (MANUAL) 1 % (0-6); LYMPHOCYTES % (MANUAL) 11 % (13-45); MONOCYTES % (MANUAL) 7 % (3-13); SEGMENTED NEUTROPHILS % (MAN) 80 % (42-78); TOTAL CELLS COUNTED 100; TOXIC VACUOLATION PRESENT
[2019-03-27 18:19] LABS: BURR CELLS 1+; SCHISTOCYTES 1+
[2019-03-27 18:21] LABS: ANISOCYTOSIS 1+; POLYCHROMASIA SLIGHT; TARGET CELLS 1+
[2019-03-27 18:24] LABS: OVALOCYTES 1+
[2019-03-27 18:25] LABS: HYPOCHROMASIA 1+; PLATELET COMMENT ADEQUATE
[2019-03-27 18:33] LABS: TROPONIN I 0.262 ng/mL
[2019-03-27 19:08] LABS: APPEARANCE,URINE CLEAR; BILIRUBIN,URINE NEGATIVE (NEGATIVE); COLOR,URINE YELLOW; GLUCOSE, URINE NEGATIVE (NEGATIVE); KETONES,URINE NEGATIVE (NEGATIVE); PROTEIN,URINE >=500 mg/dL (NEGATIVE); URINE SPECIFIC GRAVITY 1.018; UROBILINOGEN,URINE NEGATIVE mg/dL (<2.0)
--- NOTE | 2019-03-27 20:39 | ER Document Report ---
ED General - General Chief Complaint: Swelling of Lower Extremity Stated Complaint: LEG SWELLING Time Seen by Provider: 03/27/19 14:57 Primary Care Provider: FLAVIA MOORE MD [COMMUNITY BASED STAFF] - Follow up as needed Mode of Arrival: Wheelchair Information source: Patient TRAVEL OUTSIDE OF THE [place] IN LAST 30 DAYS: No - HPI Onset: Other - over the last month Severity: Moderate Pain Level: Denies Associated symptoms: Nonproductive cough, Fever, Headache, Leg swelling, Shortness of breath Exacerbated by: Movement Relieved by: Remaining still Similar symptoms previously: Yes - with CHF flares Recently seen / treated by doctor: No Notes: 49 year old female with a history of CHF, CAD, HTN, HLD, PVD, GERD, PTSD, Depression here for 1 month of shortness of breath, increased leg edema, weeping from her legs, and generalized weakness. The patient denies missing her daily medications. The patient denies chills, sweats, productive cough, chest pain, urinary symptoms. The patient does have nausea and vomiting and she was noted to have a fever here in the ER. The patient says her legs are someone red and warm to her but she did not think she was having fevers at home. - Related Data Allergies/Adverse Reactions: aspirin [Aspirin] Allergy (Severe, Verified 06/25/18 16:07) Respiratory arrest diclofenac potassium [From Cataflam] Allergy (Severe, Verified 06/25/18 16:07) Anaphylaxis ibuprofen [From Motrin] Allergy (Severe, Verified 06/25/18 16:07) ketorolac tromethamine [From Toradol] Allergy (Severe, Verified 06/25/18 16:07) naproxen Allergy (Severe, Verified 06/25/18 16:07) prazosin [Prazosin] Allergy (Severe, Verified 06/25/18 16:07) Facial swelling tramadol HCl [From Ultram] Allergy (Severe, Verified 06/25/18 16:07) lisinopril [Lisinopril] Allergy (Intermediate, Verified 06/25/18 16:07) Facial swelling sumatriptan [From Imitrex] Allergy (Intermediate, Verified 06/25/18 16:07) zolpidem tartrate [From Ambien] Allergy (Intermediate, Verified 06/25/18 16:07) lactose Allergy (Mild, Verified 06/25/18 16:07) metoclopramide HCl [From Reglan] Allergy (Mild, Verified 06/25/18 16:07) prochlorperazine edisylate [From Compazine] Allergy (Mild, Verified 06/25/18 16:07) Tremors prochlorperazine maleate [From Compazine] Allergy (Mild, Verified 06/25/18 16:07) Tremors egg [Egg] Allergy (Verified 06/25/18 16:07) medroxyprogesterone acetate [From Depo-Provera] Adverse Reaction (Severe, Verified 06/25/18 16:07) Hemorrhage amlodipine besylate [From Norvasc] Adverse Reaction (Intermediate, Verified 06/25/18 16:07) Migraine nisoldipine [From Sular] Adverse Reaction (Intermediate, Verified 06/25/18 16:07) Hypertension arificial sweetners Allergy (Severe, Uncoded 06/25/18 16:07) polyester material Allergy (Mild, Uncoded 06/25/18 16:07) Urticaria amovig Allergy (Uncoded 09/28/18 17:29) emgalility Allergy (Uncoded 09/28/18 17:29) water Adverse Reaction (Intermediate, Uncoded 06/25/18 16:07) VOMITING Home Medications: Hydralazine, Clonidine, Losartan, Topril. Past Medical History - General Information source: Patient - Social History Smoking Status: Never Smoker Frequency of alcohol use: None Drug Abuse: None Family History: Reviewed & Not Pertinent Patient has suicidal ideation: No Patient has homicidal ideation: No - Past Medical History Cardiac Medical History: Reports: Hx Congestive Heart Failure, Hx Heart Attack - 2004, Hx Hypercholesterolemia, Hx Hypertension, Hx Peripheral Vascular Disease, Hx Heart Murmur Denies: Hx Atrial Fibrillation, Hx Coronary Artery Disease, Hx Pulmonary Embolism Pulmonary Medical History: Reports: Hx Asthma, Hx Pneumonia - February 2011, hospitalized Denies: Hx Bronchitis, Hx COPD, Hx Respiratory Failure, Hx Sleep Apnea, Hx Tuberculosis Neurological Medical History: Reports: Hx Migraine. Denies: Hx Cerebrovascular Accident, Hx Seizures, Hx Parkinson's Disease Renal/ Medical History: Reports: Hx Renal Insufficiency. Denies: Hx End Stage Renal Disease, Hx Kidney Stones, Hx Ovarian Cysts, Hx Peritoneal Dialysis, Hx Pelvic Inflammatory Disease Malignancy Medical History: Denies: Hx Breast Cancer, Hx Cervical Cancer, Hx Leukemia, Hx Lung Cancer GI Medical History: Reports: Hx Gastroesophageal Reflux Disease, Hx Hiatal Hernia, Hx Irritable Bowel. Denies: Hx Crohn's Disease, Hx Liver Failure, Hx Pancreatitis, Hx Ulcer Musculoskeletal Medical History: Reports Hx Arthritis, Denies Hx Fibromyalgia, Denies Hx Multiple Sclerosis, Denies Hx Muscular Dystrophy Psychiatric Medical History: Reports: Hx Bipolar Disorder, Hx Depression - anxiety, Hx Post Traumatic Stress Disorder Denies: Hx Dementia, Hx Schizophrenia Traumatic Medical History: Denies: Hx Fractures Infectious Medical History: Denies: Hx HIV Past Surgical History: Reports: Hx Section - 3, Hx Cholecystectomy, Hx Genitourinary Surgery, Hx Hysterectomy, Hx Neurologic Surgery - neck, back surg 2016, Hx Oral Surgery, Hx Orthopedic Surgery - Bilateral carpal tunnel release, bilateral ulnar nerve transposition., Hx Tubal Ligation. Denies: Hx Appendectomy, Hx Bowel Surgery, Hx Colostomy, Hx Coronary Artery Bypass Graft, Hx Gastric Bypass Surgery, Hx Herniorrhaphy, Hx Mastectomy, Hx Pacemaker, Hx Tonsillectomy - Immunizations Immunizations up to date: Yes Hx Diphtheria, Pertussis, Tetanus Vaccination: Yes Hx Pneumococcal Vaccination: 12/05/06 Review of Systems - Review of Systems Constitutional: Chills, Weakness EENT: No symptoms reported Cardiovascular: Dyspnea, Edema, Paroxysmal Nocturnal Dysp. denies: Chest pain Respiratory: Cough, Short of breath Gastrointestinal: No symptoms reported Genitourinary: No symptoms reported Female Genitourinary: No symptoms reported Musculoskeletal: No symptoms reported Skin: Other - redness and warmth of lower legs, skin weeping from edema Hematologic/Lymphatic: No symptoms reported Neurological/Psychological: Headaches -: Yes All other systems reviewed and negative Physical Exam - Vital signs Vitals: Temp Pulse Resp BP Pulse Ox 99.8 F 111 H 22 H 227/133 H 92 03/27/19 14:52 03/27/19 14:52 03/27/19 14:52 03/27/19 14:52 03/27/19 14:52 - Notes Notes: GENERAL: Chronically ill appearing, Obese, well-nourished and in no acute distress. Wearing sunglasses inside. HEAD: Atraumatic, normocephalic. EYES: Pupils equal round and reactive to light, extraocular movements intact, sclera anicteric, conjunctiva are normal. ENT: Nares patent, oropharynx clear without exudates. Moist mucous membranes. NECK: Normal range of motion, supple without lymphadenopathy or JVD. LUNGS: Breath sounds clear to auscultation bilaterally and equal. No wheezes rales or rhonchi. HEART: Regular rate and rhythm without murmurs, rubs or gallops. ABDOMEN: Soft, nontender, normoactive bowel sounds. No guarding, no rebound. No masses appreciated. EXTREMITIES: Normal range of motion, no pitting or edema. No clubbing or cyanosis. NEUROLOGICAL: Cranial nerves II through XII grossly intact. Normal speech, normal gait. PSYCH: Normal mood, normal affect. SKIN: Edema of bilateral legs to mid shins. Open blisters/weeping skin from leg edema. Mild to moderate erythema of lower legs with warmth bilaterally. Course - Re-evaluation Re-evalutation: 03/27/19 21:58 The patient is in heart failure and she presented very hypertensive. Patient was treated in the ER with IV Labetolol, IV Hydralazine, IV, Lasix. Patient has a positive Trop which is higher then her baseline but she is not having chest pain so this is likely demand ischemia. The patient spiked a fever in this ER. UA and chest xray unremarkable. Will culture and treat (Clinda) for leg cellulites as this seems like the most likely course. Flu swab pending. Patient admitted to a Tele Bed. Patient's BP responded well to the IV meds. - Vital Signs Vital signs: Temp Pulse Resp BP Pulse Ox 99.8 F 112 H 18 164/91 H 97 03/27/19 21:35 03/27/19 17:22 03/27/19 21:46 03/27/19 21:46 03/27/19 21:46 - Laboratory Result Diagrams: 03/27/19 17:16 03/27/19 17:16 Laboratory results interpreted by mn: 03/27/19 03/27/19 03/27/19 17:16 17:16 17:16 Hgb 9.9 L Hct 30.8 L MCV 73 L MCH 23.4 L RDW 18.5 H Seg Neuts % (Manual) 80 H Lymphocytes % (Manual) 11 L BUN 32 H Creatinine 2.31 H Est GFR ( Amer) 27 L Est GFR (MDRD) Non-Af 22 L NT-Pro-B Natriuret Pep 59609 H Urine Protein Urine Blood 03/27/19 18:43 Hgb Hct MCV MCH RDW Seg Neuts % (Manual) Lymphocytes % (Manual) BUN Creatinine Est GFR ( Amer) Est GFR (MDRD) Non-Af NT-Pro-B Natriuret Pep Urine Protein >=500 H Urine Blood SMALL H Critical Care Note - Critical Care Note Total time excluding time spent on procedures (mins): 35 Discharge - Discharge Clinical Impression: NSTEMI (non-ST elevated myocardial infarction) Heart failure Qualifiers: Heart failure type: other Qualified Code(s): I50.89 - Other heart failure Hypertension Qualifiers: Hypertension type: unspecified Qualified Code(s): I10 - Essential (primary) hypertension Condition: Stable Disposition: ADMITTED INPATIENT Unit Admitted: Telemetry Referrals: FLAVIA MOORE MD [COMMUNITY BASED STAFF] - Follow up as needed
[2019-03-27] MEDS ORDERED: LABETALOL HCL INJ 20 MG/4 ML DISP.SYRIN IV ONE (20:40)
[2019-03-27] MEDS ORDERED: HYDRALAZINE HCL INJ/PF 20 MG/1 ML SDV IV ONE (20:46)
[2019-03-27] MEDS ORDERED: FUROSEMIDE INJ/PF 40 MG/4 ML SDV IV ONE (20:50)
[2019-03-27 21:14] LABS: VENOUS BLOOD BASE EXCESS -3.2 mmol/L; VENOUS BLOOD HCO3 21.5 mmol/L (20-32); VENOUS BLOOD PCO2 37.2 mmHg (35-63); VENOUS BLOOD PH 7.38 (7.30-7.42)
[2019-03-27] MEDS ORDERED: BUTALB/ACETAMINOPHEN/CAFFEINE 1 TAB EACH PO ONE (21:25)
[2019-03-27] MEDS ORDERED: ONDANSETRON 4 MG TAB.RAPDIS PO ONE (21:26)
[2019-03-27] MEDS ORDERED: PROMETHAZINE HCL 25 MG TABLET PO ONE (21:44)
[2019-03-27] MEDS ORDERED: CLINDAMYCIN 600 MG/D5W RTU 600 MG/50 ML RTUPB IV ONE (21:45)
[2019-03-27] MEDS ORDERED: NITROGLYCERIN/D5W 50 MG/250 ML RTUINJ IV PRN (22:33)
[2019-03-27 22:36] LABS: A TYPE INFLUENZA AG NEGATIVE (NEGATIVE); B INFLUENZA AG NEGATIVE (NEGATIVE)
[2019-03-27 23:00] LABS: PHOSPHORUS 3.2 mg/dL (2.5-4.5)
[2019-03-27 23:16] LABS: URINE AMPHETAMINES SCREEN NEGATIVE; URINE BARBITURATES SCREEN NEGATIVE; URINE BENZODIAZEPINES SCREEN NEGATIVE; URINE COCAINE SCREEN NEGATIVE; URINE MARIJUANA (THC) SCREEN NEGATIVE; URINE METHADONE SCREEN NEGATIVE; URINE PHENCYCLIDINE SCREEN NEGATIVE
[2019-03-27 23:17] LABS: FREE T4 (FREE THYROXINE) 1.4 ng/dL (0.78-2.19)
[2019-03-27 23:23] LABS: ARTERIAL BLOOD BASE EXCESS -3.2 mmol/L; ARTERIAL BLOOD FIO2 ROOM AIR; ARTERIAL BLOOD H2CO3 0.89 mmol/L (1.05-1.35); ARTERIAL BLOOD O2 SATURATION 93.9 % (94-98); ARTERIAL BLOOD PCO2 29.7 mmHg (35-45); ARTERIAL BLOOD PH 7.45 (7.35-7.45); ARTERIAL BLOOD TOTAL CO2 20.9 mmol/L (21-25)
[2019-03-27 23:31] LABS: THYROID STIMULATING HORMONE 5.24 uIU/mL (0.47-4.68)
[2019-03-27 23:38] LABS: INTERNATIONAL RATION (INR) 1.24; PROTHROMBIN TIME 15.7 SEC (11.4-15.4)
[2019-03-27 23:39] LABS: PARTIAL THROMBOPLASTIN TIME 31.4 SEC (23.5-35.8)
[2019-03-27 23:47] LABS: CREATINE KINASE MB 2.48 ng/mL (<4.55); TROPONIN I 0.214 ng/mL
[2019-03-28] MEDS: HEPARIN SOD (PORCINE) 5,000 UNIT/ML 1 ML VIAL SUBCUT SCH ×4 (00:13→22:17)
[2019-03-28] MEDS ORDERED: ALBUTEROL SULFATE 0.083% NEB 2.5 MG/3 ML AMPUL NEB PRN (04:53)
[2019-03-28] MEDS ORDERED: DIAZEPAM 5 MG TABLET PO PRN (04:53)
[2019-03-28] MEDS: CLINDAMYCIN 300 MG/D5W RTU 300 MG/50 ML RTUPB IV SCH ×3 (05:42→22:17)
[2019-03-28] MEDS: TIZANIDINE HCL 4 MG TABLET PO SCH ×3 (05:43→22:16)
[2019-03-28] MEDS: HYDRALAZINE HCL 50 MG TABLET PO SCH ×3 (05:44→22:17)
[2019-03-28] MEDS: PROMETHAZINE HCL 25 MG TABLET PO PRN ×2 (05:50→13:09)
[2019-03-28] MEDS ORDERED: BUTORPHANOL TARTRATE IH SCH (06:00)
[2019-03-28 06:05] LABS: ALKALINE PHOSPHATASE 75 U/L (38-126); ANION GAP 9 (5-19); ASPARTATE AMINO TRANSFERASE 26 U/L (14-36); BILIRUBIN,DIRECT 0.4 mg/dL (0.0-0.4); BILIRUBIN,TOTAL 0.6 mg/dL (0.2-1.3); BLOOD UREA NITROGEN 32 mg/dL (7-20); CALCIUM 8.6 mg/dL (8.4-10.2); CARBON DIOXIDE 19 mmol/L (22-30); CHLORIDE 109 mmol/L (98-107); CHOLESTEROL 120.02 mg/dL (0-200); CREATINE KINASE 142 U/L (30-135); GLUCOSE 108 mg/dL (75-110); POTASSIUM 3.6 mmol/L (3.6-5.0); TOTAL PROTEIN 6.7 g/dL (6.3-8.2); TRIGLYCERIDES 92 mg/dL (<150)
[2019-03-28 06:16] LABS: DIRECT LDL 64 mg/dL (<100)
[2019-03-28 06:17] LABS: CREATINE KINASE MB 1.91 ng/mL (<4.55); TROPONIN I 0.19 ng/mL
[2019-03-28 07:05] LABS: HEMATOCRIT 28.5 % (36.0-47.0); HEMOGLOBIN 9.1 g/dL (12.0-15.5); MEAN CORPUSCULAR HGB CONC 31.7 g/dL (32.0-36.0); MEAN CORPUSCULAR VOLUME 72 fl (80-97); PLATELET COUNT 278 10^3/uL (150-450); RED BLOOD COUNT 3.94 10^6/uL (3.72-5.28); RED CELL DISTRIBUTION WIDTH 18.3 % (11.5-14.0); WHITE BLOOD COUNT 5.4 10^3/uL (4.0-10.5)
[2019-03-28 07:10] LABS: ABSOLUTE LYMPHOCYTES# (MANUAL) 0.9 10^3/uL (0.5-4.7); ABSOLUTE MONOCYTES # (MANUAL) 0.3 10^3/uL (0.1-1.4); BASOPHILS % (MANUAL) 0 % (0-2); EOSINOPHILS % (MANUAL) 0 % (0-6); LYMPHOCYTES % (MANUAL) 15 % (13-45); MONOCYTES % (MANUAL) 6 % (3-13); SEGMENTED NEUTROPHILS % (MAN) 77 % (42-78); TOTAL CELLS COUNTED 100
[2019-03-28 07:11] LABS: ANISOCYTOSIS 1+; HYPOCHROMASIA SLIGHT; PLATELET LARGE PRESENT; POIKILOCYTOSIS SLIGHT; POLYCHROMASIA SLIGHT; SCHISTOCYTES SLIGHT; TARGET CELLS SLIGHT
[2019-03-28 07:12] LABS: PLATELET COMMENT ADEQUATE
[2019-03-28] MEDS ORDERED: INFLUENZA QUAD (6MOS+) 2019-20 VAC 0.5 ML SYR IM ONE (07:40)
[2019-03-28] MEDS ORDERED: (PENDING PHARMACY ID) (Fluticasone/Salmeterol 1 INH) BC SCH (10:00)
[2019-03-28] MEDS ORDERED: FUROSEMIDE 40 MG TABLET PO SCH (10:00)
[2019-03-28] MEDS ORDERED: DOXAZOSIN MESYLATE 8 MG PO SCH (10:00)
[2019-03-28 10:35] LABS: URINE CREATININE 110.8 mg/dL (15-278)
[2019-03-28] MEDS: OXYCODONE HCL IR 5 MG TABLET PO SCH ×3 (10:39→19:47)
[2019-03-28 11:26] LABS: UR PRO/CREAT RATIO RESULT 9.6 mg/mg (0.0-0.2)
[2019-03-28] MEDS ORDERED: PROMETHAZINE HCL 25 MG TABLET PO PRN (12:05)
[2019-03-28] MEDS ORDERED: TRIMETHOBENZAMIDE HCL 300 MG CAPSULE PO PRN (12:05)
[2019-03-28 12:21] LABS: CREATINE KINASE MB 1.66 ng/mL (<4.55)
[2019-03-28 12:37] LABS: TROPONIN I 0.167 ng/mL
--- NOTE | 2019-03-28 12:59 | EKG REPORT ---
SEVERITY:- ABNORMAL ECG - SINUS RHYTHM PROBABLE LEFT VENTRICULAR HYPERTROPHY BORDERLINE PROLONGED QT INTERVAL : Confirmed by: Sonu Talamantes 28-Mar-2019 12:57:55
[2019-03-28] MEDS: FLUTICASONE/VILANTEROL 200-25 MCG/DOSE IH SCH (13:02)
[2019-03-28] MEDS: FAMOTIDINE 20 MG TABLET PO SCH ×2 (13:03→19:45)
[2019-03-28] MEDS: PANTOPRAZOLE SODIUM 40 MG TABLET.DR PO SCH ×2 (13:03→19:45)
[2019-03-28] MEDS: CLONAZEPAM 1 MG TABLET PO SCH ×2 (13:05→19:47)
[2019-03-28] MEDS: NIFEDIPINE 30 MG TAB.ER.24 PO SCH ×2 (13:05→19:47)
[2019-03-28] MEDS: CLONIDINE HCL 0.1 MG TABLET PO SCH ×3 (13:05→19:46)
[2019-03-28] MEDS: METOPROLOL SUCCINATE 50 MG TAB.SR.24H PO SCH ×2 (13:06→19:47)
[2019-03-28] MEDS: DOXAZOSIN MESYLATE 4 MG TABLET PO SCH ×2 (13:11→19:45)
[2019-03-28] MEDS: CETIRIZINE 10 MG TABLET PO SCH (13:11)
[2019-03-28] MEDS: ALBUTEROL SULFATE HFA (90 MCG/PUFF) 200 PUFF/8.5 GM MDI IH SCH ×3 (15:30→22:19)
[2019-03-28] MEDS ORDERED: NORMAL SALINE 250 ML with FUROSEMIDE 250 MG IV PRN ×2 (17:28)
[2019-03-28] MEDS: MONTELUKAST SODIUM 10 MG TABLET PO SCH (19:45)
--- NOTE | 2019-03-28 20:58 | PDOC H&P ---
History of Present Illness Admission Date/PCP: 03/27/19 22:11 VJ LEBLANC MD History of Present Illness: LUCRETIA JOYCE is a 49 year old female,She came to the emergency room for evaluation of swelling, fever, shortness of breath, in the emergency room when she presented the systolic blood pressure was more than 200. Patient with a long history of poorly controlled blood pressure, the initial urinalysis demonstrated significant proteinuria, more than 500, the urine protein creatinine ratio, is 9.6 consistent with nephrotic syndrome. She also has severe cellulitis of both legs, there is tremendous anasarca affecting both legs the abdomen, she was also found to have elevated serum troponin. Past Medical History Cardiac Medical History: Reports: Congestive Heart Failure, Myocardial Infarction - 2004, Hyperlipidema, Hypertension, Peripheral Vascular Disease, Heart Murmur Pulmonary Medical History: Reports: Asthma, Pneumonia - February 2011, hospitalized Neurological Medical History: Reports: Migraine GI Medical History: Reports: Gastroesophageal Reflux Disease, Hiatal Hernia Musculoskeltal Medical History: Reports: Arthritis Psychiatric Medical History: Reports: Bipolar Disorder, Depression, Post Traumatic Stress Disorder Hematology: Reports: Anemia Past Surgical History Past Surgical History: Reports: Section - 3, Cholecystectomy, Hysterectomy, Orthopedic Surgery - Bilateral carpal tunnel release, bilateral ulnar nerve transposition., Tubal Ligation Social History Smoking Status: Current Every Day Smoker Electronic Cigarette use?: No Frequency of Alcohol Use: Rare Hx Recreational Drug Use: No Drugs: None Hx Prescription Drug Abuse: No - Advance Directive Resuscitation Status: Full Code Family History Family History: Reviewed & Not Pertinent Parental Family History Reviewed: Yes Children Family History Reviewed: Yes Sibling(s) Family History Reviewed.: Yes Medication/Allergy Home Medications: Omeprazole [Prilosec] 40 mg PO BID 10/29/14 Clonidine HCl [Catapres] 0.3 mg PO Q8 05/09/15 Montelukast Sodium 10 mg PO QPM 05/09/15 Oxycodone HCl [Oxycodone HCl 10 MG Tablet] 10 mg PO Q6HP PRN 06/25/18 Albuterol Sulfate [Proair HFA Inhalation Aerosol 8.5 gm MDI] 2 puff IH QID 03/28/19 Butorphanol Tartrate 1 spray NASL DAILYP PRN MDD 1 SRAY PER DAY 03/28/19 Cetirizine HCl [Zyrtec 10 mg Tablet] 10 mg PO DAILY 03/28/19 Cuvposa 5 ml PO TID 03/28/19 Doxazosin Mesylate [Cardura 4 mg Tablet] 8 mg PO BID 03/28/19 Fluticasone/Salmeterol [Advair 500-50 Diskus 14 Dose/Diskus] 1 puff IH BID 03/28/19 Promethazine HCl [Phenergan 25 mg Tablet] 25 mg PO Q12HP PRN 03/28/19 Trimethobenzamide HCl [Tigan 300 mg Capsule] 300 mg PO TIDP PRN 03/28/19 Allergies/Adverse Reactions: aspirin [Aspirin] Allergy (Severe, Verified 06/25/18 16:07) Respiratory arrest diclofenac potassium [From Cataflam] Allergy (Severe, Verified 06/25/18 16:07) Anaphylaxis ibuprofen [From Motrin] Allergy (Severe, Verified 06/25/18 16:07) ketorolac tromethamine [From Toradol] Allergy (Severe, Verified 06/25/18 16:07) naproxen Allergy (Severe, Verified 06/25/18 16:07) prazosin [Prazosin] Allergy (Severe, Verified 06/25/18 16:07) Facial swelling tramadol HCl [From Ultram] Allergy (Severe, Verified 06/25/18 16:07) lisinopril [Lisinopril] Allergy (Intermediate, Verified 06/25/18 16:07) Facial swelling sumatriptan [From Imitrex] Allergy (Intermediate, Verified 06/25/18 16:07) zolpidem tartrate [From Ambien] Allergy (Intermediate, Verified 06/25/18 16:07) lactose Allergy (Mild, Verified 06/25/18 16:07) metoclopramide HCl [From Reglan] Allergy (Mild, Verified 06/25/18 16:07) prochlorperazine edisylate [From Compazine] Allergy (Mild, Verified 06/25/18 16:07) Tremors prochlorperazine maleate [From Compazine] Allergy (Mild, Verified 06/25/18 16:07) Tremors egg [Egg] Allergy (Verified 06/25/18 16:07) medroxyprogesterone acetate [From Depo-Provera] Adverse Reaction (Severe, Verified 06/25/18 16:07) Hemorrhage amlodipine besylate [From Norvasc] Adverse Reaction (Intermediate, Verified 06/25/18 16:07) Migraine nisoldipine [From Sular] Adverse Reaction (Intermediate, Verified 06/25/18 16:07) Hypertension arificial sweetners Allergy (Severe, Uncoded 06/25/18 16:07) polyester material Allergy (Mild, Uncoded 06/25/18 16:07) Urticaria amovig Allergy (Uncoded 09/28/18 17:29) emgalility Allergy (Uncoded 09/28/18 17:29) water Adverse Reaction (Intermediate, Uncoded 06/25/18 16:07) VOMITING Review of Systems Constitutional: PRESENT: chills, fatigue, weight gain Cardiovascular: PRESENT: edema Gastrointestinal: PRESENT: bloating Musculoskeletal: PRESENT: back pain, muscle weakness Neurological: PRESENT: dizziness, frequent falls Physical Exam Vital Signs: Temp Pulse Resp BP Pulse Ox 98.9 F 83 18 146/84 H 95 03/28/19 17:19 03/28/19 17:19 03/28/19 17:19 03/28/19 17:19 03/28/19 17:19 Intake & Output 03/27/19 03/28/19 03/29/19 06:59 06:59 06:59 Intake Total 100 512 Output Total 350 Balance 100 162 Weight 139.3 kg General appearance: PRESENT: obese Head exam: PRESENT: atraumatic, normocephalic Eye exam: PRESENT: PERRLA Mouth exam: PRESENT: moist Neck exam: PRESENT: full ROM Respiratory exam: PRESENT: clear to auscultation raúl Cardiovascular exam: PRESENT: RRR, +S1, +S2 Vascular exam: PRESENT: normal capillary refill GI/Abdominal exam: PRESENT: normal bowel sounds, soft Rectal exam: PRESENT: deferred Extremities exam: PRESENT: pedal edema, other - Erythema of the extremities Neurological exam: PRESENT: alert, CN II-XII grossly intact. ABSENT: motor sensory deficit Psychiatric exam: PRESENT: appropriate affect, normal mood Skin exam: PRESENT: dry, intact, warm Results Laboratory Results: 03/28/19 05:36 03/28/19 05:36 03/27/19 03/27/19 03/27/19 17:16 17:16 21:03 WBC RBC Hgb Hct MCV MCH MCHC RDW Plt Count Seg Neutrophils % Carbonic Acid HCO3/H2CO3 Ratio ABG pH ABG pCO2 ABG pO2 ABG HCO3 ABG O2 Saturation ABG Base Excess VBG pH VBG pCO2 VBG HCO3 VBG Base Excess FiO2 Sodium Potassium Chloride Carbon Dioxide Anion Gap BUN Creatinine Est GFR ( Amer) Glucose Lactic Acid 0.7 Calcium Phosphorus 3.2 Magnesium 1.8 Total Bilirubin AST Alkaline Phosphatase Ammonia Total Protein Albumin Triglycerides Cholesterol LDL Cholesterol Direct VLDL Cholesterol HDL Cholesterol Lipase 332.6 H TSH 5.24 H Free T4 1.40 03/27/19 03/27/19 03/27/19 21:03 22:59 23:12 WBC RBC Hgb Hct MCV MCH MCHC RDW Plt Count Seg Neutrophils % Carbonic Acid 0.89 L HCO3/H2CO3 Ratio 22:1 ABG pH 7.45 ABG pCO2 29.7 L ABG pO2 65.0 L ABG HCO3 20.0 ABG O2 Saturation 93.9 L ABG Base Excess -3.2 VBG pH 7.38 VBG pCO2 37.2 VBG HCO3 21.5 VBG Base Excess -3.2 FiO2 ROOM AIR Sodium Potassium Chloride Carbon Dioxide Anion Gap BUN Creatinine Est GFR ( Amer) Glucose Lactic Acid Calcium Phosphorus Magnesium Total Bilirubin AST Alkaline Phosphatase Ammonia < 8.7 L Total Protein Albumin Triglycerides Cholesterol LDL Cholesterol Direct VLDL Cholesterol HDL Cholesterol Lipase TSH Free T4 03/28/19 03/28/19 05:36 05:36 WBC 5.4 RBC 3.94 Hgb 9.1 L Hct 28.5 L MCV 72 L MCH 23.0 L MCHC 31.7 L RDW 18.3 H Plt Count 278 Seg Neutrophils % Not Reportable Carbonic Acid HCO3/H2CO3 Ratio ABG pH ABG pCO2 ABG pO2 ABG HCO3 ABG O2 Saturation ABG Base Excess VBG pH VBG pCO2 VBG HCO3 VBG Base Excess FiO2 Sodium 137.4 Potassium 3.6 Chloride 109 H Carbon Dioxide 19 L Anion Gap 9 BUN 32 H Creatinine 2.11 H Est GFR ( Amer) 30 L Glucose 108 Lactic Acid Calcium 8.6 Phosphorus Magnesium Total Bilirubin 0.6 AST 26 Alkaline Phosphatase 75 Ammonia Total Protein 6.7 Albumin 3.0 L Triglycerides 92 Cholesterol 120.02 LDL Cholesterol Direct 64 VLDL Cholesterol 18.0 HDL Cholesterol 37 L Lipase TSH Free T4 03/27/19 03/27/19 03/27/19 17:16 17:16 22:59 Creatine Kinase 241 H CK-MB (CK-2) 2.48 Troponin I 0.262 0.214 NT-Pro-B Natriuret Pep 91664 H 47211 H 03/28/19 03/28/19 03/28/19 05:36 05:36 11:05 Creatine Kinase 142 H 117 CK-MB (CK-2) 1.91 Troponin I 0.190 NT-Pro-B Natriuret Pep 03/28/19 11:05 Creatine Kinase CK-MB (CK-2) 1.66 Troponin I 0.167 NT-Pro-B Natriuret Pep Impressions: Chest X-Ray 03/27/19 15:00 IMPRESSION: Cardiomegaly without pulmonary edema. Assessment & Plan - Diagnosis (1) Hypertensive emergency Is this a current diagnosis for this admission?: Yes Plan: The blood pressure is in the hypertensive emergency range, patient is started on nitroglycerin (2) Nephrotic syndrome Is this a current diagnosis for this admission?: Yes Plan: She has nephrotic range proteinuria, start furosemide infusion (3) Cellulitis of leg Qualifiers: Laterality: unspecified laterality Qualified Code(s): L03.119 - Cellulitis of unspecified part of limb Is this a current diagnosis for this admission?: Yes Plan: Start intravenous clindamycin (4) Elevated troponin Is this a current diagnosis for this admission?: Yes Plan: Consult cardiology (5) Chronic kidney disease, stage 3 Is this a current diagnosis for this admission?: Yes Plan: Consult nephrology
[2019-03-28] MEDS ORDERED: CITALOPRAM HYDROBROMIDE 20 MG TABLET PO SCH (22:00)
[2019-03-28] MEDS: TEMAZEPAM 15 MG CAPSULE PO SCH ×2 (22:19→22:33)
[2019-03-29] MEDS: OXYCODONE HCL IR 5 MG TABLET PO SCH ×2 (00:45→12:22)
[2019-03-29 05:06] LABS: ABSOLUTE EOSINOPHILS # (AUTO) 0.1 10^3/uL (0.0-0.6); ABSOLUTE MONOCYTES (AUTO) 0.7 10^3/uL (0.1-1.4); ABSOLUTE NEUT (AUTO) 4.3 10^3/uL (1.7-8.2); BASOPHILS % (AUTO) 0.6 % (0-2); EOSINOPHILS % (AUTO) 1.1 % (0-6); HEMATOCRIT 26.8 % (36.0-47.0); HEMOGLOBIN 8.4 g/dL (12.0-15.5); LYMPHOCYTES % (AUTO) 16.8 % (13-45); MEAN CORPUSCULAR HGB CONC 31.4 g/dL (32.0-36.0); MEAN CORPUSCULAR VOLUME 73 fl (80-97); PLATELET COUNT 269 10^3/uL (150-450); RED BLOOD COUNT 3.64 10^6/uL (3.72-5.28); RED CELL DISTRIBUTION WIDTH 18.5 % (11.5-14.0); SEGMENTED NEUTROPHILS % (AUTO) 69.5 % (42-78); TOTAL CELLS COUNTED % (AUTO) 100 %; WHITE BLOOD COUNT 6.2 10^3/uL (4.0-10.5)
[2019-03-29 05:25] LABS: CHOLESTEROL 100.22 mg/dL (0-200); TRIGLYCERIDES 100 mg/dL (<150)
[2019-03-29 05:37] LABS: DIRECT LDL 50 mg/dL (<100)
[2019-03-29] MEDS: TIZANIDINE HCL 4 MG TABLET PO SCH (06:06)
[2019-03-29] MEDS: HYDRALAZINE HCL 50 MG TABLET PO SCH (06:06)
[2019-03-29] MEDS: CLINDAMYCIN 300 MG/D5W RTU 300 MG/50 ML RTUPB IV SCH ×3 (06:07→22:45)
[2019-03-29] MEDS: HEPARIN SOD (PORCINE) 5,000 UNIT/ML 1 ML VIAL SUBCUT SCH ×3 (06:07→22:47)
[2019-03-29] MEDS ORDERED: NALOXONE HCL INJ/PF 0.4 MG/1 ML SDV ONE ×2 (09:34→09:39)
[2019-03-29 09:52] LABS: ARTERIAL BLOOD BASE EXCESS -3.2 mmol/L; ARTERIAL BLOOD H2CO3 0.82 mmol/L (1.05-1.35); ARTERIAL BLOOD HCO3 19.6 mmol/L (20-24); ARTERIAL BLOOD O2 SATURATION 95.4 % (94-98); ARTERIAL BLOOD PCO2 27.2 mmHg (35-45); ARTERIAL BLOOD PH 7.48 (7.35-7.45); ARTERIAL BLOOD PO2 70.1 mmHg (80-100); ARTERIAL BLOOD TOTAL CO2 20.4 mmol/L (21-25)
[2019-03-29 09:53] LABS: ARTERIAL BLOOD FIO2 21%
[2019-03-29 10:29] LABS: ABSOLUTE LYMPHOCYTES (AUTO) 1.1 10^3/uL (0.5-4.7); ABSOLUTE MONOCYTES (AUTO) 0.4 10^3/uL (0.1-1.4); BASOPHILS % (AUTO) 0.6 % (0-2); EOSINOPHILS % (AUTO) 0.4 % (0-6); HEMATOCRIT 28.6 % (36.0-47.0); LYMPHOCYTES % (AUTO) 16.2 % (13-45); MEAN CORPUSCULAR HEMOGLOBIN 22.8 pg (27.0-33.4); MEAN CORPUSCULAR HGB CONC 31.5 g/dL (32.0-36.0); MEAN CORPUSCULAR VOLUME 72 fl (80-97); MONOCYTES % (AUTO) 6.2 % (3-13); PLATELET COUNT 271 10^3/uL (150-450); RED BLOOD COUNT 3.95 10^6/uL (3.72-5.28); RED CELL DISTRIBUTION WIDTH 18.8 % (11.5-14.0); SEGMENTED NEUTROPHILS % (AUTO) 76.6 % (42-78); TOTAL CELLS COUNTED % (AUTO) 100 %; WHITE BLOOD COUNT 6.6 10^3/uL (4.0-10.5)
[2019-03-29 10:34] LABS: ALBUMIN 2.7 g/dL (3.5-5.0); ALKALINE PHOSPHATASE 69 U/L (38-126); ANION GAP 12 (5-19); ASPARTATE AMINO TRANSFERASE 21 U/L (14-36); BILIRUBIN,DIRECT 0.4 mg/dL (0.0-0.4); BILIRUBIN,TOTAL 0.6 mg/dL (0.2-1.3); BLOOD UREA NITROGEN 36 mg/dL (7-20); CALCIUM 8.2 mg/dL (8.4-10.2); CARBON DIOXIDE 17 mmol/L (22-30); CHLORIDE 108 mmol/L (98-107); CREATINE KINASE 178 U/L (30-135); GLUCOSE 129 mg/dL (75-110); POTASSIUM 4.1 mmol/L (3.6-5.0); TOTAL PROTEIN 6.3 g/dL (6.3-8.2)
[2019-03-29 10:35] LABS: INTERNATIONAL RATION (INR) 1.28; PARTIAL THROMBOPLASTIN TIME 29.8 SEC (23.5-35.8)
[2019-03-29 10:47] LABS: CREATINE KINASE MB 1.95 ng/mL (<4.55); TROPONIN I 0.118 ng/mL
--- NOTE | 2019-03-29 11:05 | RADIOLOGY REPORT (SQ) ---
EXAM DESCRIPTION: CHEST SINGLE VIEW COMPLETED DATE/TIME: 03/29/2019 10:58 am REASON FOR STUDY: [employer] / unresponsive COMPARISON: 03/27/2019 NUMBER OF VIEWS: One view. TECHNIQUE: Single frontal radiographic view of the chest acquired. LIMITATIONS: None. FINDINGS: LUNGS AND PLEURA: No opacities, masses or pneumothorax. No pleural effusion. MEDIASTINUM AND HILAR STRUCTURES: No masses or contour abnormality. HEART AND VASCULATURE: Cardiac enlargement. Vascular congestion. BONES: No acute findings. HARDWARE: None in the chest. OTHER: No other significant finding. IMPRESSION: CARDIAC ENLARGEMENT. VASCULAR CONGESTION. TECHNICAL DOCUMENTATION: JOB ID: [id number] [employer]- All Rights Reserved Reading location - IP/workstation name: [email or web address]
--- NOTE | 2019-03-29 11:08 | RADIOLOGY REPORT (SQ) ---
EXAM DESCRIPTION: CT HEAD WITHOUT COMPLETED DATE/TIME: 03/29/2019 11:01 am REASON FOR STUDY: change in mental status / unresponsive COMPARISON: 11/13/2015 TECHNIQUE: Axial images acquired through the brain without intravenous contrast. Images reviewed wi th bone, brain and subdural windows. Additional sagittal and coronal reconstructions were generated. Images stored on PACS. All CT scanners at this facility use dose modulation, iterative reconstruction, and/or weight based d osing when appropriate to reduce radiation dose to as low as reasonably achievable (ALARA). [facility]: Dose Right [facility]: CareDose [facility]: Dose Right [facility]: Teradose 4D [facility]: [employer] RADIATION DOSE: CT Rad equipment meets quality standard of care and radiation dose reduction techniq ues were employed. CTDIvol: 53.2 mGy. DLP: 1177 mGy-cm. mGy. LIMITATIONS: None. FINDINGS: VENTRICLES: Normal size and contour. CEREBRUM: No masses. No hemorrhage. No midline shift. No evidence for acute infarction. Normal gra y/white matter differentiation. No areas of low density in the white matter. CEREBELLUM: No masses. No hemorrhage. No alteration of density. No evidence for acute infarction. EXTRAAXIAL SPACES: No fluid collections. No masses. ORBITS AND GLOBE: No intra- or extraconal masses. Normal contour of globe without masses. CALVARIUM: No fracture. PARANASAL SINUSES: No fluid or mucosal thickening. SOFT TISSUES: No mass or hematoma. OTHER: No other significant finding. IMPRESSION: NORMAL BRAIN CT WITHOUT CONTRAST. EVIDENCE OF ACUTE STROKE: NO. COMMENT: Quality ID # [id number]: Final reports with documentation of one or more dose reduction techniques (e.g., Automated exposure control, adjustment of the mA and/or kV according to patient size, use of iterative reconstruction technique) TECHNICAL DOCUMENTATION: JOB ID: [id number] [employer]- All Rights Reserved Reading location - IP/workstation name: [email or web address]
[2019-03-29] MEDS: DOXAZOSIN MESYLATE 4 MG TABLET PO SCH (12:21)
[2019-03-29] MEDS: CLONIDINE HCL 0.1 MG TABLET PO SCH (12:21)
[2019-03-29] MEDS: FLUTICASONE/VILANTEROL 200-25 MCG/DOSE IH SCH (12:21)
[2019-03-29] MEDS: NIFEDIPINE 30 MG TAB.ER.24 PO SCH (12:22)
[2019-03-29] MEDS: ALBUTEROL SULFATE HFA (90 MCG/PUFF) 200 PUFF/8.5 GM MDI IH SCH ×4 (12:22→22:48)
[2019-03-29] MEDS: CLONAZEPAM 1 MG TABLET PO SCH (12:22)
[2019-03-29] MEDS: PANTOPRAZOLE SODIUM 40 MG TABLET.DR PO SCH ×2 (12:22→19:13)
[2019-03-29] MEDS: CETIRIZINE 10 MG TABLET PO SCH (12:23)
[2019-03-29] MEDS: METOPROLOL SUCCINATE 50 MG TAB.SR.24H PO SCH (12:23)
--- NOTE | 2019-03-29 12:37 | PDOC PROGRESS REPORT ---
Subjective Progress Note for:: 03/29/19 Subjective:: This is a 49-year-old female patient of Dr. Sheffield admitted yesterday for the hypertension urgency and elevated troponin and this morning the patient is found unresponsive and patients have a rapid response team was activated and the patient given Narcan and patient's blood pressure was systolic was running 70 and finally coming down to up to 90 Patient have a some T wave inversion in the EKG patient was kind of like very sleepy look like hypercapnic respiratory failure with very obese hypoventilation's when I saw the patient's Patient already is seen by the hospitalist team with the rapid response team's and patient was stabilized and I discussed with the assembler garment form and patient was transfer to the ICU Before the transfer order the labs CT scan EKG discussed with the patient's daughter regarding the patient's current conditions Reason For Visit: EMERGENCY HYPERTENSION,CELLULITIS OF THE LOWER Physical Exam Vital Signs: Temp Pulse Resp BP Pulse Ox 98.1 F 55 L 21 H 97/63 L 100 03/29/19 12:00 03/29/19 12:00 03/29/19 12:00 03/29/19 12:00 03/29/19 12:00 Intake & Output 03/28/19 03/29/19 03/30/19 06:59 06:59 06:59 Intake Total 100 562 Output Total 750 0 Balance 100 -188 0 Weight 139.3 kg 142.4 kg General appearance: PRESENT: mild distress Eye exam: PRESENT: PERRLA Mouth exam: PRESENT: neck supple Respiratory exam: PRESENT: decreased breath sounds Neurological exam: PRESENT: altered Skin exam: PRESENT: dry Results Laboratory Results: 03/29/19 10:20 03/29/19 09:59 03/29/19 03/29/19 03/29/19 04:15 04:15 09:35 WBC 6.2 RBC 3.64 L Hgb 8.4 L Hct 26.8 L MCV 73 L MCH 23.0 L MCHC 31.4 L RDW 18.5 H Plt Count 269 Seg Neutrophils % 69.5 Carbonic Acid 0.82 L HCO3/H2CO3 Ratio 23:1 ABG pH 7.48 H ABG pCO2 27.2 L ABG pO2 70.1 L ABG HCO3 19.6 L ABG O2 Saturation 95.4 ABG Base Excess -3.2 FiO2 21% Sodium Potassium Chloride Carbon Dioxide Anion Gap BUN Creatinine Est GFR ( Amer) Glucose Calcium Total Bilirubin AST Alkaline Phosphatase Total Protein Albumin Triglycerides 100 Cholesterol 100.22 LDL Cholesterol Direct 50 VLDL Cholesterol 20.0 HDL Cholesterol 28 L 03/29/19 03/29/19 09:59 10:20 WBC 6.6 RBC 3.95 Hgb 9.0 L Hct 28.6 L MCV 72 L MCH 22.8 L MCHC 31.5 L RDW 18.8 H Plt Count 271 Seg Neutrophils % 76.6 Carbonic Acid HCO3/H2CO3 Ratio ABG pH ABG pCO2 ABG pO2 ABG HCO3 ABG O2 Saturation ABG Base Excess FiO2 Sodium 137.3 Potassium 4.1 Chloride 108 H Carbon Dioxide 17 L Anion Gap 12 BUN 36 H Creatinine 3.05 H Est GFR ( Amer) 20 L Glucose 129 H Calcium 8.2 L Total Bilirubin 0.6 AST 21 Alkaline Phosphatase 69 Total Protein 6.3 Albumin 2.7 L Triglycerides Cholesterol LDL Cholesterol Direct VLDL Cholesterol HDL Cholesterol 03/27/19 03/27/19 03/27/19 17:16 17:16 22:59 Creatine Kinase 241 H CK-MB (CK-2) 2.48 Troponin I 0.262 0.214 NT-Pro-B Natriuret Pep 43811 H 20669 H 03/28/19 03/28/19 03/28/19 05:36 05:36 11:05 Creatine Kinase 142 H 117 CK-MB (CK-2) 1.91 Troponin I 0.190 NT-Pro-B Natriuret Pep 03/28/19 03/29/19 03/29/19 11:05 09:59 09:59 Creatine Kinase 178 H CK-MB (CK-2) 1.66 1.95 Troponin I 0.167 0.118 NT-Pro-B Natriuret Pep 9940 H Impressions: Chest X-Ray 03/29/19 09:30 IMPRESSION: CARDIAC ENLARGEMENT. VASCULAR CONGESTION. Head CT 03/29/19 09:40 IMPRESSION: NORMAL BRAIN CT WITHOUT CONTRAST. EVIDENCE OF ACUTE STROKE: NO. Assessment & Plan - Diagnosis (1) Altered mental status Is this a current diagnosis for this admission?: Yes Plan: We will get the ABG CT of the head EKG cardiac enzymes blood work Transfer the patient to the intensive care units Discussed with the assembler garment form Discussed with the patient's daughter (2) Cellulitis of leg Qualifiers: Laterality: unspecified laterality Qualified Code(s): L03.119 - Cellulitis of unspecified part of limb Is this a current diagnosis for this admission?: Yes (3) Elevated troponin Is this a current diagnosis for this admission?: Yes (4) Heart failure Qualifiers: Heart failure type: other Qualified Code(s): I50.89 - Other heart failure; I50.8 - Other heart failure Is this a current diagnosis for this admission?: Yes (5) NSTEMI (non-ST elevated myocardial infarction) Is this a current diagnosis for this admission?: Yes (6) Nephrotic syndrome Is this a current diagnosis for this admission?: Yes (7) Sleep disorder Is this a current diagnosis for this admission?: Yes - Time Time Spent with patient: 35 or more minutes Total Critical Time (Minutes): 40 Level of Care: IMCU Medications reviewed and adjusted accordingly: Yes Anticipated discharge: Other Within: Other - Plan Summary Plan Summary: Transfer the patient is in ICU
--- NOTE | 2019-03-29 13:01 | CRITICAL CARE ADMISSION REPORT ---
HPI Date:: 03/29/19 - Critical Care Attending Reason for ICU Reason:: hypotension, obtundation, HPI: Pt is a 49 yo woman with CHF, CKD, PVD, obesity, proteinuria, who was admitted to the hospital on 03/27/2019 woth hypertensive urgency. She was started on a NTG drip and admitted to the IMCU.Her home cardiac meds were continued and she was started on a lasix drip.Today, a rapid response was called after being found unresponsive and hypotensive by the bedside nurse. She has been transferred to the ICU and started on bipap. Upon my assessment, she is hypotensive with an SBP in the 90s and is obtunded. She responds to voice, but is not completely arousable. She follows commands on the right, but not on the left. Upon examining her eyes, when I lifting her eyelids, her eyes are downward gazing. Past Medical History Cardiac Medical History: Reports: Congestive Heart Failure, Myocardial Infarction - 2004, Hyperlipidema, Hypertension, Peripheral Vascular Disease, Heart Murmur Denies: Atrial Fibrillation, Coronary Artery Disease, Pulmonary Embolism Pulmonary Medical History: Reports: Asthma, Pneumonia - February 2011, hos pitalized Denies: Bronchitis, Chronic Obstructive Pulmonary Disease (COPD), Respiratory Failure, Sleep Apnea, Tuberculosis Neurological Medical History: Reports: Migraine Denies: Seizures Renal/ Medical History: Denies: End Stage Renal Disease Malignancy Medical History: Denies: Breast Cancer, Cervical Cancer, Leukemia, Lung Cancer GI Medical History: Reports: Gastroesophageal Reflux Disease, Hiatal Hernia Denies: Crohn's Disease Musculoskeltal Medical History: Reports: Arthritis Denies: Fibromyalgia Psychiatric Medical History: Reports: Bipolar Disorder, Depression, Post Traumatic Stress Disorder Denies: Dementia Hematology: Reports: Anemia Denies: Hemophilia, Sickle Cell Disease Infectious Medical History: Denies: HIV Past Surgical History Past Surgical History: Reports: Section - 3, Cholecystectomy, Hysterectomy, Orthopedic Surgery - Bilateral carpal tunnel release, bilateral ulnar nerve transposition., Tubal Ligation Denies: Amputation, Appendectomy, Colostomy, Coronary Artery Bypass Graft, Gastric Bypass Surgery, Herniorrhaphy, Mastectomy, Pacemaker, Tonsillectomy Social/Family History - Social History Smoking Status: Current Every Day Smoker Frequency of Alcohol Use: Rare Hx Recreational Drug Use: No Drugs: None Hx Prescription Drug Abuse: No - Medication/Allergies Home Medications: Omeprazole [Prilosec] 40 mg PO BID 10/29/14 Clonidine HCl [Catapres] 0.3 mg PO Q8 05/09/15 Montelukast Sodium 10 mg PO QPM 05/09/15 Oxycodone HCl [Oxycodone HCl 10 MG Tablet] 10 mg PO Q6HP PRN 06/25/18 Albuterol Sulfate [Proair HFA Inhalation Aerosol 8.5 gm MDI] 2 puff IH QID 03/28/19 Butorphanol Tartrate 1 spray NASL DAILYP PRN MDD 1 SRAY PER DAY 03/28/19 Cetirizine HCl [Zyrtec 10 mg Tablet] 10 mg PO DAILY 03/28/19 Cuvposa 5 ml PO TID 03/28/19 Doxazosin Mesylate [Cardura 4 mg Tablet] 8 mg PO BID 03/28/19 Fluticasone/Salmeterol [Advair 500-50 Diskus 14 Dose/Diskus] 1 puff IH BID 03/28/19 Promethazine HCl [Phenergan 25 mg Tablet] 25 mg PO Q12HP PRN 03/28/19 Trimethobenzamide HCl [Tigan 300 mg Capsule] 300 mg PO TIDP PRN 03/28/19 Allergies/Adverse Reactions: aspirin [Aspirin] Allergy (Severe, Verified 06/25/18 16:07) Respiratory arrest diclofenac potassium [From Cataflam] Allergy (Severe, Verified 06/25/18 16:07) Anaphylaxis ibuprofen [From Motrin] Allergy (Severe, Verified 06/25/18 16:07) ketorolac tromethamine [From Toradol] Allergy (Severe, Verified 06/25/18 16:07) naproxen Allergy (Severe, Verified 06/25/18 16:07) prazosin [Prazosin] Allergy (Severe, Verified 06/25/18 16:07) Facial swelling tramadol HCl [From Ultram] Allergy (Severe, Verified 06/25/18 16:07) lisinopril [Lisinopril] Allergy (Intermediate, Verified 06/25/18 16:07) Facial swelling sumatriptan [From Imitrex] Allergy (Intermediate, Verified 06/25/18 16:07) zolpidem tartrate [From Ambien] Allergy (Intermediate, Verified 06/25/18 16:07) lactose Allergy (Mild, Verified 06/25/18 16:07) metoclopramide HCl [From Reglan] Allergy (Mild, Verified 06/25/18 16:07) prochlorperazine edisylate [From Compazine] Allergy (Mild, Verified 06/25/18 16:07) Tremors prochlorperazine maleate [From Compazine] Allergy (Mild, Verified 06/25/18 16:07) Tremors egg [Egg] Allergy (Verified 06/25/18 16:07) medroxyprogesterone acetate [From Depo-Provera] Adverse Reaction (Severe, Verifi ed 06/25/18 16:07) Hemorrhage amlodipine besylate [From Norvasc] Adverse Reaction (Intermediate, Verified 06/25/18 16:07) Migraine nisoldipine [From Sular] Adverse Reaction (Intermediate, Verified 06/25/18 16:07) Hypertension arificial sweetners Allergy (Severe, Uncoded 06/25/18 16:07) polyester material Allergy (Mild, Uncoded 06/25/18 16:07) Urticaria amovig Allergy (Uncoded 09/28/18 17:29) emgalility Allergy (Uncoded 09/28/18 17:29) water Adverse Reaction (Intermediate, Uncoded 06/25/18 16:07) VOMITING Review of Systems ROS unobtainable: Due to mental status Physical Exam Vital Signs: Temp Pulse Resp BP Pulse Ox 98.1 F 55 L 21 H 97/63 L 100 03/29/19 12:00 03/29/19 12:00 03/29/19 12:00 03/29/19 12:00 03/29/19 12:00 Intake & Output 03/28/19 03/29/19 03/30/19 06:59 06:59 06:59 Intake Total 100 562 Output Total 750 0 Balance 100 -188 0 Weight 139.3 kg 142.4 kg Weight/Height Weight 142.4 kg Height 5 ft 9 in General appearance: PRESENT: no acute distress, obese, other - obtunded Head exam: PRESENT: atraumatic, normocephalic Respiratory exam: PRESENT: rhonchi, unlabored Cardiovascular exam: PRESENT: RRR GI/Abdominal exam: PRESENT: soft, other - obese Gentrourinary exam: PRESENT: indwelling catheter Extremities exam: PRESENT: +2 edema, other - venous stasis changes Neurological exam: PRESENT: other - obtunded Laboratory/Radiographs Laboratory Results: 03/29/19 10:20 03/29/19 09:59 03/29/19 03/29/19 03/29/19 04:15 04:15 09:35 WBC 6.2 RBC 3.64 L Hgb 8.4 L Hct 26.8 L MCV 73 L MCH 23.0 L MCHC 31.4 L RDW 18.5 H Plt Count 269 Seg Neutrophils % 69.5 Carbonic Acid 0.82 L HCO3/H2CO3 Ratio 23:1 ABG pH 7.48 H ABG pCO2 27.2 L ABG pO2 70.1 L ABG HCO3 19.6 L ABG O2 Saturation 95.4 ABG Base Excess -3.2 FiO2 21% Sodium Potassium Chloride Carbon Dioxide Anion Gap BUN Creatinine Est GFR ( Amer) Glucose Calcium Total Bilirubin AST Alkaline Phosphatase Total Protein Albumin Triglycerides 100 Cholesterol 100.22 LDL Cholesterol Direct 50 VLDL Cholesterol 20.0 HDL Cholesterol 28 L 03/29/19 03/29/19 09:59 10:20 WBC 6.6 RBC 3.95 Hgb 9.0 L Hct 28.6 L MCV 72 L MCH 22.8 L MCHC 31.5 L RDW 18.8 H Plt Count 271 Seg Neutrophils % 76.6 Carbonic Acid HCO3/H2CO3 Ratio ABG pH ABG pCO2 ABG pO2 ABG HCO3 ABG O2 Saturation ABG Base Excess FiO2 Sodium 137.3 Potassium 4.1 Chloride 108 H Carbon Dioxide 17 L Anion Gap 12 BUN 36 H Creatinine 3.05 H Est GFR ( Amer) 20 L Glucose 129 H Calcium 8.2 L Total Bilirubin 0.6 AST 21 Alkaline Phosphatase 69 Total Protein 6.3 Albumin 2.7 L Triglycerides Cholesterol LDL Cholesterol Direct VLDL Cholesterol HDL Cholesterol 03/27/19 03/27/19 03/27/19 17:16 17:16 22:59 Creatine Kinase 241 H CK-MB (CK-2) 2.48 Troponin I 0.262 0.214 NT-Pro-B Natriuret Pep 38601 H 87507 H 03/28/19 03/28/19 03/28/19 05:36 05:36 11:05 Creatine Kinase 142 H 117 CK-MB (CK-2) 1.91 Troponin I 0.190 NT-Pro-B Natriuret Pep 03/28/19 03/29/19 03/29/19 11:05 09:59 09:59 Creatine Kinase 178 H CK-MB (CK-2) 1.66 1.95 Troponin I 0.167 0.118 NT-Pro-B Natriuret Pep 9940 H Impressions: Chest X-Ray 03/29/19 09:30 IMPRESSION: CARDIAC ENLARGEMENT. VASCULAR CONGESTION. Head CT 03/29/19 09:40 IMPRESSION: NORMAL BRAIN CT WITHOUT CONTRAST. EVIDENCE OF ACUTE STROKE: NO. Critical Time Critical Time (minutes): 50 -: The care of a critically ill patient is dynamic. This note represents a static moment in the admission process. Orders and treatments may be given simultaneously and urgently, and time is not artist representative of the treatment process. This patient requires Critical Care secondary to life threatening organ or limb dysfunction. Without Critical Care services, the patient is at risk for increased mortality and morbidity. Provider Note Provider Note: Assessment: Critically ill 49 yo woman with obtundation, possible acute CVA, CHF,hypotension, CKD, PVD, elevated troponins Plan: 1. Respiratory: on bipap. Will wean to NC. No need for intubation at this time. 2. CV: CHF. Hypertensive urgency, resolved. Now hypotensive. Elevated troponin, CHF. Will hold antihypertensive meds. Dr. Jacques consulted. Echo ordered. SBP in the 90s. 3. Renal: CKD. Cr is 3.05.Proteinuria. Hold lasix drip due to hypotension 4. Neuro: altered mental status, obtundation, possible acute CVA. Head CT negative. Will order MRI 5. ID: [email or web address]. On clindmycin 6. Endocrine: monitor blood sugars 7. Nutrition: NPO 8. Prophylaxis: sq heparin 9. Daughters at bedside. Updated on pt condition and plan of care Critical care time= 50 min, excluding procedures
--- NOTE | 2019-03-29 16:50 | RADIOLOGY REPORT (SQ) ---
EXAM DESCRIPTION: MRI HEAD WITHOUT COMPLETED DATE/TIME: 03/29/2019 4:26 pm REASON FOR STUDY: acute CVA COMPARISON: None. TECHNIQUE: Multiplanar imaging includes non-contrasted T1, T2, FLAIR, and diffusion with ADC map seq uences. Images stored on PACS. LIMITATIONS: None. FINDINGS: ANATOMY: No anomalies. Normal vascular flow voids. Pituitary fossa normal. CSF SPACES: Normal in size and contour. No hemorrhage. CEREBRUM: Sulci and gyri normal in size and contour. Normal white matter signal on FLAIR imaging. No evidence of hemorrhage, mass, or extraaxial fluid collection. POSTERIOR FOSSA: No signal alteration. No hemorrhage. No edema, masses or mass effect. Internal darnell tory canals, cerebello-pontine angles, mastoids normal. DIFFUSION IMAGING: There are small focal areas of restricted diffusion in the subcortical white matte r of the right and left frontal and parietal lobes. ORBITS: No masses. Globes normal. PARANASAL SINUSES: No fluid levels. Mucosa normal. OTHER: No other significant finding. IMPRESSION: SMALL FOCAL AREAS OF RESTRICTED DIFFUSION IN BOTH CEREBRAL HEMISPHERES DESCRIBED. GI RADHA THE DIFFUSE BILATERAL DISTRIBUTION, THESE COULD BE EMBOLIC PHENOMENON. EVIDENCE OF ACUTE STROKE: YES. NO SINGLE VASCULAR DISTRIBUTION. COMMENT: Pertinent findings on the imaging study reported as a CRITICAL RESULT to ICU nurse at16:42 on 03/29/2019. Category of Critical Result: Cerebral infarcts. TECHNICAL DOCUMENTATION: JOB ID: [id number] [employer]- All Rights Reserved Reading location - IP/workstation name: [email or web address]
[2019-03-29] MEDS ORDERED: ACETAMINOPHEN 325 MG TABLET ONE (17:16)
[2019-03-29] MEDS ORDERED: ONDANSETRON HCL INJ/PF 4 MG/2 ML SDV ONE (17:17)
[2019-03-29] MEDS: ACETAMINOPHEN 325 MG TABLET PO PRN (17:30)
[2019-03-29] MEDS: ONDANSETRON HCL INJ/PF 4 MG/2 ML SDV IV PRN (17:30)
[2019-03-29] MEDS ORDERED: PHARMACY COMMUNICATION ORDER MC SCH (18:00)
[2019-03-29] MEDS: MONTELUKAST SODIUM 10 MG TABLET PO SCH (19:12)
--- NOTE | 2019-03-29 21:16 | Progress Note ---
Provider Note Provider Note: CARDIOLOGY PROGRESS NOTE by Dr. Melani Drew on 03/29/2019. OBJECTIVE.. Rapid response team was called last night for the patient since she became obtunded and unresponsive. Her blood pressure was in the 70s to 80s systolic. The patient also lethargic. This morning she did seem to have a left facial droop but she is very drowsy but still able to follow commands. Apart from the mild left facial droop she is able to move all 4 extremities. They thought processes that the patient is sustained a CVA. She had a CT scan of the head which did not show CVA but the patient later will get an MRI. Her echocardiogram at the bedside showed LVH with normal LV ejection fraction. There is mild to moderate mitral regurgitation. There is trace to mild tricuspid regurgitation. There is no pericardial effusion. The patient remains bradycardic but with a stable blood pressure although on the lower side. Note t hat the patient's blood pressure usually runs around 150s to 160s systolic and diastolic anywhere from 94 200. PHYSICAL EXAMINATION: The patient is morbidly obese. She is drowsy but asked answers all questions appropriately. Selected Entries 03/29/19 14:00 Temperature 97.3 F Temperature Core Source Pulse Rate 54 L Respiratory 19 Rate Blood Pressure 115/72 [Right Upper Arm] Blood Pressure 86 Mean [Right Upper Arm] Blood Pressure Supine Position [Right Upper Arm] Blood Pressure 115 Systolic [Right Upper Arm] O2 Sat by Pulse 100 Oximetry Oxygen Delivery Nasal Cannula Method ( includes room air) Oxygen Flow 2 Rate 03/27/19 03/27/19 03/28/19 17:16 22:59 11:05 Troponin I 0.262 0.214 0.167 03/29/19 09:59 Troponin I 0.118 HEAD: Is atraumatic normocephalic. EYES: Pupils are equal round regular reactive to light accommodation. Extraocular movements are normal. There is no conjunctival pallor. There is no scleral icterus. EARS: Tympanic membranes are intact. External auditory canals are clear. NOSE: There is no deviated nasal septum. There is no inflammation nasal mucous membrane. MOUTH: Mucous membranes of the mouth are moist. Tongue is moist. THROAT: There is no redness of the oropharynx there is no exudates. SKIN: There is no skin rashes there is no petechia or ecchymosis. NECK: Is supple. There is no JVD. Carotids are equal there is no bruit. Face: There is seems to be a mild left facial droop but the patient is able to wrinkle eyebrows. And raise both eyebrows NECK: Is supple. There is no JVD. Carotids are equal there is no bruits. THERE is no accessory muscle respiration use. LUNGS: Is clear to auscultation percussion. HEART: S1-S2 is heard. There is an S4 gallop present. There is no S3 gallop. There is systolic murmur left sternal border and the apex there is no rub. ABDOMEN: Soft. Obese. Nontender. There is no) megaly. Bowel sounds well heard. EXTREMITIES femorals are deep. There is no femoral bruits. LEG pulses are diminished. There is trace to mild pedal edema bilaterally. There is no DVT or cellulitis. There is no cyanosis or clubbing. RETAIL GROCER: The patient is conscious very drowsy but seems to be oriented x3. She is able to move all 4 extremities. PSYCHIATRIC: The patient does not appear to be anxious or agitated. Caps EKG: Sinus rhythm with lateral T changes suggestive of ischemia. Labs- Entire Visit 03/27/19 03/27/19 03/27/19 17:16 17:16 17:16 WBC 5.5 RBC 4.23 Hgb 9.9 L Hct 30.8 L MCV 73 L MCH 23.4 L MCHC 32.1 RDW 18.5 H Plt Count 322 Lymph % (Auto) Not Reportable [place] % (Auto) Not Reportable Eos % (Auto) Not Reportable Baso % (Auto) Not Reportable Absolute Neuts (auto) Not Reportable Absolute Lymphs (auto) Not Reportable Absolute Monos (auto) Not Reportable Absolute Eos (auto) Not Reportable Absolute Basos (auto) Not Reportable Total Counted 100 Seg Neutrophils % Not Reportable Seg Neuts % (Manual) 80 H Lymphocytes % (Manual) 11 L Atypical Lymphs % 1 Monocytes % (Manual) 7 Eosinophils % (Manual) 1 Basophils % (Manual) 0 Abs Neuts (Manual) 4.4 Abs Lymphs (Manual) 0.7 Abs Monocytes (Manual) 0.4 Absolute Eos (Manual) 0.1 Abs Basophils (Manual) 0.0 Toxic Vacuolation PRESENT Large Platelets Platelet Comment ADEQUATE Polychromasia SLIGHT Hypochromasia 1+ Poikilocytosis Anisocytosis 1+ Microcytosis 1+ Target Cells 1+ Ovalocytes 1+ [place] Cells 1+ Schistocytes 1+ PT INR APTT Carbonic Acid HCO3/H2CO3 Ratio ABG pH ABG pCO2 ABG pO2 ABG HCO3 ABG Total CO2 ABG O2 Saturation ABG Base Excess VBG pH VBG pCO2 VBG HCO3 VBG Base Excess FiO2 Sodium 138.9 Potassium 4.2 Chloride 107 Carbon Dioxide 24 Anion Gap 8 BUN 32 H Creatinine 2.31 H Est GFR ( Amer) 27 L Est GFR (MDRD) Non-Af 22 L Glucose 87 POC Glucose Hemoglobin A1c % Lactic Acid Calcium 9.0 Phosphorus Magnesium Total Bilirubin 0.7 Direct Bilirubin 0.1 Neonat Total Bilirubin Not Reportable Neonat Direct Bilirubin Not Reportable Neonat Indirect Bili Not Reportable AST 30 ALT 18 Alkaline Phosphatase 85 Ammonia Creatine Kinase CK-MB (CK-2) Troponin I 0.262 NT-Pro-B Natriuret Pep 29919 H Total Protein 7.4 Albumin 3.5 Triglycerides Cholesterol LDL Cholesterol Direct VLDL Cholesterol HDL Cholesterol Lipase TSH Free T4 Urine Color Urine Appearance Urine pH Ur Specific [place] Urine Protein Urine Glucose (UA) Urine Ketones Urine Blood Urine Nitrite (Reflex) Urine Bilirubin Urine Urobilinogen Leukocyte Esterase Rfl Urine RBC (Auto) Urine WBC (Reflex) Squamous Epi Cells Auto Urine Mucus (Auto) Urine Creatinine Protein/Creatinin Ratio Urine Total Protein Urine Ascorbic Acid Urine Opiates Screen Urine Methadone Screen Ur Barbiturates Screen Ur Phencyclidine Scrn Ur Amphetamines Screen U Benzodiazepines Scrn Urine Cocaine Screen U Marijuana (THC) Screen Influenza A (Rapid) Influenza B (Rapid) 03/27/19 03/27/19 03/27/19 17:16 17:16 18:43 WBC RBC Hgb Hct MCV MCH MCHC RDW Plt Count Lymph % (Auto) [place] % (Auto) Eos % (Auto) Baso % (Auto) Absolute Neuts (auto) Absolute Lymphs (auto) Absolute Monos (auto) Absolute Eos (auto) Absolute Basos (auto) Total Counted Seg Neutrophils % Seg Neuts % (Manual) Lymphocytes % (Manual) Atypical Lymphs % Monocytes % (Manual) Eosinophils % (Manual) Basophils % (Manual) Abs Neuts (Manual) Abs Lymphs (Manual) Abs Monocytes (Manual) Absolute Eos (Manual) Abs Basophils (Manual) Toxic Vacuolation Large Platelets Platelet Comment Polychromasia Hypochromasia Poikilocytosis Anisocytosis Microcytosis Target Cells Ovalocytes [place] Cells Schistocytes PT INR APTT Carbonic Acid HCO3/H2CO3 Ratio ABG pH ABG pCO2 ABG pO2 ABG HCO3 ABG Total CO2 ABG O2 Saturation ABG Base Excess VBG pH VBG pCO2 VBG HCO3 VBG Base Excess FiO2 Sodium Potassium Chloride Carbon Dioxide Anion Gap BUN Creatinine Est GFR ( Amer) Est GFR (MDRD) Non-Af Glucose POC Glucose Hemoglobin A1c % Lactic Acid Calcium Phosphorus 3.2 Magnesium 1.8 Total Bilirubin Direct Bilirubin Neonat Total Bilirubin Neonat Direct Bilirubin Neonat Indirect Bili AST ALT Alkaline Phosphatase Ammonia Creatine Kinase 241 H CK-MB (CK-2) Troponin I NT-Pro-B Natriuret Pep Total Protein Albumin Triglycerides Cholesterol LDL Cholesterol Direct VLDL Cholesterol HDL Cholesterol Lipase 332.6 H TSH 5.24 H Free T4 1.40 Urine Color YELLOW Urine Appearance CLEAR Urine pH 6.0 Ur Specific [place] 1.018 Urine Protein >=500 H Urine Glucose (UA) NEGATIVE Urine Ketones NEGATIVE Urine Blood SMALL H Urine Nitrite (Reflex) NEGATIVE Urine Bilirubin NEGATIVE Urine Urobilinogen NEGATIVE Leukocyte Esterase Rfl NEGATIVE Urine RBC (Auto) 0 Urine WBC (Reflex) 5 Squamous Epi Cells Auto 1 Urine Mucus (Auto) RARE Urine Creatinine Protein/Creatinin Ratio Urine Total Protein Urine Ascorbic Acid NEGATIVE Urine Opiates Screen Urine Methadone Screen Ur Barbiturates Screen Ur Phencyclidine Scrn Ur Amphetamines Screen U Benzodiazepines Scrn Urine Cocaine Screen U Marijuana (THC) Screen Influenza A (Rapid) Influenza B (Rapid) 03/27/19 03/27/19 03/27/19 18:43 18:43 21:03 WBC RBC Hgb Hct MCV MCH MCHC RDW Plt Count Lymph % (Auto) [place] % (Auto) Eos % (Auto) Baso % (Auto) Absolute Neuts (auto) Absolute Lymphs (auto) Absolute Monos (auto) Absolute Eos (auto) Absolute Basos (auto) Total Counted Seg Neutrophils % Seg Neuts % (Manual) Lymphocytes % (Manual) Atypical Lymphs % Monocytes % (Manual) Eosinophils % (Manual) Basophils % (Manual) Abs Neuts (Manual) Abs Lymphs (Manual) Abs Monocytes (Manual) Absolute Eos (Manual) Abs Basophils (Manual) Toxic Vacuolation Large Platelets Platelet Comment Polychromasia Hypochromasia Poikilocytosis Anisocytosis Microcytosis Target Cells Ovalocytes [place] Cells Schistocytes PT INR APTT Carbonic Acid HCO3/H2CO3 Ratio ABG pH ABG pCO2 ABG pO2 ABG HCO3 ABG Total CO2 ABG O2 Saturation ABG Base Excess VBG pH VBG pCO2 VBG HCO3 VBG Base Excess FiO2 Sodium Potassium Chloride Carbon Dioxide Anion Gap BUN Creatinine Est GFR ( Amer) Est GFR (MDRD) Non-Af Glucose POC Glucose Hemoglobin A1c % Lactic Acid 0.7 Calcium Phosphorus Magnesium Total Bilirubin Direct Bilirubin Neonat Total Bilirubin Neonat Direct Bilirubin Neonat Indirect Bili AST ALT Alkaline Phosphatase Ammonia Creatine Kinase CK-MB (CK-2) Troponin I NT-Pro-B Natriuret Pep Total Protein Albumin Triglycerides Cholesterol LDL Cholesterol Direct VLDL Cholesterol HDL Cholesterol Lipase TSH Free T4 Urine Color Urine Appearance Urine pH Ur Specific [place] Urine Protein Urine Glucose (UA) Urine Ketones Urine Blood Urine Nitrite (Reflex) Urine Bilirubin Urine Urobilinogen Leukocyte Esterase Rfl Urine RBC (Auto) Urine WBC (Reflex) Squamous Epi Cells Auto Urine Mucus (Auto) Urine Creatinine 110.8 Protein/Creatinin Ratio 9.6 H Urine Total Protein 1067.0 H Urine Ascorbic Acid Urine Opiates Screen NEGATIVE Urine Methadone Screen NEGATIVE Ur Barbiturates Screen NEGATIVE Ur Phencyclidine Scrn NEGATIVE Ur Amphetamines Screen NEGATIVE U Benzodiazepines Scrn NEGATIVE Urine Cocaine Screen NEGATIVE U Marijuana (THC) Screen NEGATIVE Influenza A (Rapid) Influenza B (Rapid) 03/27/19 03/27/19 03/27/19 21:03 22:13 22:59 WBC RBC Hgb Hct MCV MCH MCHC RDW Plt Count Lymph % (Auto) [place] % (Auto) Eos % (Auto) Baso % (Auto) Absolute Neuts (auto) Absolute Lymphs (auto) Absolute Monos (auto) Absolute Eos (auto) Absolute Basos (auto) Total Counted Seg Neutrophils % Seg Neuts % (Manual) Lymphocytes % (Manual) Atypical Lymphs % Monocytes % (Manual) Eosinophils % (Manual) Basophils % (Manual) Abs Neuts (Manual) Abs Lymphs (Manual) Abs Monocytes (Manual) Absolute Eos (Manual) Abs Basophils (Manual) Toxic Vacuolation Large Platelets Platelet Comment Polychromasia Hypochromasia Poikilocytosis Anisocytosis Microcytosis Target Cells Ovalocytes [place] Cells Schistocytes PT 15.7 H INR 1.24 APTT 31.4 Carbonic Acid HCO3/H2CO3 Ratio ABG pH ABG pCO2 ABG pO2 ABG HCO3 ABG Total CO2 ABG O2 Saturation ABG Base Excess VBG pH 7.38 VBG pCO2 37.2 VBG HCO3 21.5 VBG Base Excess -3.2 FiO2 Sodium Potassium Chloride Carbon Dioxide Anion Gap BUN Creatinine Est GFR ( Amer) Est GFR (MDRD) Non-Af Glucose POC Glucose Hemoglobin A1c % Lactic Acid Calcium Phosphorus Magnesium Total Bilirubin Direct Bilirubin Neonat Total Bilirubin Neonat Direct Bilirubin Neonat Indirect Bili AST ALT Alkaline Phosphatase Ammonia Creatine Kinase CK-MB (CK-2) Troponin I NT-Pro-B Natriuret Pep Total Protein Albumin Triglycerides Cholesterol LDL Cholesterol Direct VLDL Cholesterol HDL Cholesterol Lipase TSH Free T4 Urine Color Urine Appearance Urine pH Ur Specific [place] Urine Protein Urine Glucose (UA) Urine Ketones Urine Blood Urine Nitrite (Reflex) Urine Bilirubin Urine Urobilinogen Leukocyte Esterase Rfl Urine RBC (Auto) Urine WBC (Reflex) Squamous Epi Cells Auto Urine Mucus (Auto) Urine Creatinine Protein/Creatinin Ratio Urine Total Protein Urine Ascorbic Acid Urine Opiates Screen Urine Methadone Screen Ur Barbiturates Screen Ur Phencyclidine Scrn Ur Amphetamines Screen U Benzodiazepines Scrn Urine Cocaine Screen U Marijuana (THC) Screen Influenza A (Rapid) NEGATIVE Influenza B (Rapid) NEGATIVE 03/27/19 03/27/19 03/27/19 22:59 22:59 23:12 WBC RBC Hgb Hct MCV MCH MCHC RDW Plt Count Lymph % (Auto) [place] % (Auto) Eos % (Auto) Baso % (Auto) Absolute Neuts (auto) Absolute Lymphs (auto) Absolute Monos (auto) Absolute Eos (auto) Absolute Basos (auto) Total Counted Seg Neutrophils % Seg Neuts % (Manual) Lymphocytes % (Manual) Atypical Lymphs % Monocytes % (Manual) Eosinophils % (Manual) Basophils % (Manual) Abs Neuts (Manual) Abs Lymphs (Manual) Abs Monocytes (Manual) Absolute Eos (Manual) Abs Basophils (Manual) Toxic Vacuolation Large Platelets Platelet Comment Polychromasia Hypochromasia Poikilocytosis Anisocytosis Microcytosis Target Cells Ovalocytes [place] Cells Schistocytes PT INR APTT Carbonic Acid 0.89 L HCO3/H2CO3 Ratio 22:1 ABG pH 7.45 ABG pCO2 29.7 L ABG pO2 65.0 L ABG HCO3 20.0 ABG Total CO2 20.9 L ABG O2 Saturation 93.9 L ABG Base Excess -3.2 VBG pH VBG pCO2 VBG HCO3 VBG Base Excess FiO2 ROOM AIR Sodium Potassium Chloride Carbon Dioxide Anion Gap BUN Creatinine Est GFR ( Amer) Est GFR (MDRD) Non-Af Glucose POC Glucose Hemoglobin A1c % Lactic Acid Calcium Phosphorus Magnesium Total Bilirubin Direct Bilirubin Neonat Total Bilirubin Neonat Direct Bilirubin Neonat Indirect Bili AST ALT Alkaline Phosphatase Ammonia < 8.7 L Creatine Kinase CK-MB (CK-2) 2.48 Troponin I 0.214 NT-Pro-B Natriuret Pep 51002 H Total Protein Albumin Triglycerides Cholesterol LDL Cholesterol Direct VLDL Cholesterol HDL Cholesterol Lipase TSH Free T4 Urine Color Urine Appearance Urine pH Ur Specific [place] Urine Protein Urine Glucose (UA) Urine Ketones Urine Blood Urine Nitrite (Reflex) Urine Bilirubin Urine Urobilinogen Leukocyte Esterase Rfl Urine RBC (Auto) Urine WBC (Reflex) Squamous Epi Cells Auto Urine Mucus (Auto) Urine Creatinine Protein/Creatinin Ratio Urine Total Protein Urine Ascorbic Acid Urine Opiates Screen Urine Methadone Screen Ur Barbiturates Screen Ur Phencyclidine Scrn Ur Amphetamines Screen U Benzodiazepines Scrn Urine Cocaine Screen U Marijuana (THC) Screen Influenza A (Rapid) Influenza B (Rapid) 03/28/19 03/28/19 03/28/19 05:36 05:36 05:36 WBC 5.4 RBC 3.94 Hgb 9.1 L Hct 28.5 L MCV 72 L MCH 23.0 L MCHC 31.7 L RDW 18.3 H Plt Count 278 Lymph % (Auto) Not Reportable [place] % (Auto) Not Reportable Eos % (Auto) Not Reportable Baso % (Auto) Not Reportable Absolute Neuts (auto) Not Reportable Absolute Lymphs (auto) Not Reportable Absolute Monos (auto) Not Reportable Absolute Eos (auto) Not Reportable Absolute Basos (auto) Not Reportable Total Counted 100 Seg Neutrophils % Not Reportable Seg Neuts % (Manual) 77 Lymphocytes % (Manual) 15 Atypical Lymphs % 2 Monocytes % (Manual) 6 Eosinophils % (Manual) 0 Basophils % (Manual) 0 Abs Neuts (Manual) 4.2 Abs Lymphs (Manual) 0.9 Abs Monocytes (Manual) 0.3 Absolute Eos (Manual) 0.0 Abs Basophils (Manual) 0.0 Toxic Vacuolation Large Platelets PRESENT Platelet Comment ADEQUATE Polychromasia SLIGHT Hypochromasia SLIGHT Poikilocytosis SLIGHT Anisocytosis 1+ Microcytosis 1+ Target Cells SLIGHT Ovalocytes [place] Cells Schistocytes SLIGHT PT INR APTT Carbonic Acid HCO3/H2CO3 Ratio ABG pH ABG pCO2 ABG pO2 ABG HCO3 ABG Total CO2 ABG O2 Saturation ABG Base Excess VBG pH VBG pCO2 VBG HCO3 VBG Base Excess FiO2 Sodium 137.4 Potassium 3.6 Chloride 109 H Carbon Dioxide 19 L Anion Gap 9 BUN 32 H Creatinine 2.11 H Est GFR ( Amer) 30 L Est GFR (MDRD) Non-Af 25 L Glucose 108 POC Glucose Hemoglobin A1c % Lactic Acid Calcium 8.6 Phosphorus Magnesium Total Bilirubin 0.6 Direct Bilirubin 0.4 Neonat Total Bilirubin Not Reportable Neonat Direct Bilirubin Not Reportable Neonat Indirect Bili Not Reportable AST 26 ALT 16 Alkaline Phosphatase 75 Ammonia Creatine Kinase 142 H CK-MB (CK-2) 1.91 Troponin I 0.190 NT-Pro-B Natriuret Pep Total Protein 6.7 Albumin 3.0 L Triglycerides 92 Cholesterol 120.02 LDL Cholesterol Direct 64 VLDL Cholesterol 18.0 HDL Cholesterol 37 L Lipase TSH Free T4 Urine Color Urine Appearance Urine pH Ur Specific [place] Urine Protein Urine Glucose (UA) Urine Ketones Urine Blood Urine Nitrite (Reflex) Urine Bilirubin Urine Urobilinogen Leukocyte Esterase Rfl Urine RBC (Auto) Urine WBC (Reflex) Squamous Epi Cells Auto Urine Mucus (Auto) Urine Creatinine Protein/Creatinin Ratio Urine Total Protein Urine Ascorbic Acid Urine Opiates Screen Urine Methadone Screen Ur Barbiturates Screen Ur Phencyclidine Scrn Ur Amphetamines Screen U Benzodiazepines Scrn Urine Cocaine Screen U Marijuana (THC) Screen Influenza A (Rapid) Influenza B (Rapid) 03/28/19 03/28/19 03/28/19 05:36 11:05 11:05 WBC RBC Hgb Hct MCV MCH MCHC RDW Plt Count Lymph % (Auto) [place] % (Auto) Eos % (Auto) Baso % (Auto) Absolute Neuts (auto) Absolute Lymphs (auto) Absolute Monos (auto) Absolute Eos (auto) Absolute Basos (auto) Total Counted Seg Neutrophils % Seg Neuts % (Manual) Lymphocytes % (Manual) Atypical Lymphs % Monocytes % (Manual) Eosinophils % (Manual) Basophils % (Manual) Abs Neuts (Manual) Abs Lymphs (Manual) Abs Monocytes (Manual) Absolute Eos (Manual) Abs Basophils (Manual) Toxic Vacuolation Large Platelets Platelet Comment Polychromasia Hypochromasia Poikilocytosis Anisocytosis Microcytosis Target Cells Ovalocytes [place] Cells Schistocytes PT INR APTT Carbonic Acid HCO3/H2CO3 Ratio ABG pH ABG pCO2 ABG pO2 ABG HCO3 ABG Total CO2 ABG O2 Saturation ABG Base Excess VBG pH VBG pCO2 VBG HCO3 VBG Base Excess FiO2 Sodium Potassium Chloride Carbon Dioxide Anion Gap BUN Creatinine Est GFR ( Amer) Est GFR (MDRD) Non-Af Glucose POC Glucose Hemoglobin A1c % 5.5 Lactic Acid Calcium Phosphorus Magnesium Total Bilirubin Direct Bilirubin Neonat Total Bilirubin Neonat Direct Bilirubin Neonat Indirect Bili AST ALT Alkaline Phosphatase Ammonia Creatine Kinase 117 CK-MB (CK-2) 1.66 Troponin I 0.167 NT-Pro-B Natriuret Pep Total Protein Albumin Triglycerides Cholesterol LDL Cholesterol Direct VLDL Cholesterol HDL Cholesterol Lipase TSH Free T4 Urine Color Urine Appearance Urine pH Ur Specific [place] Urine Protein Urine Glucose (UA) Urine Ketones Urine Blood Urine Nitrite (Reflex) Urine Bilirubin Urine Urobilinogen Leukocyte Esterase Rfl Urine RBC (Auto) Urine WBC (Reflex) Squamous Epi Cells Auto Urine Mucus (Auto) Urine Creatinine Protein/Creatinin Ratio Urine Total Protein Urine Ascorbic Acid Urine Opiates Screen Urine Methadone Screen Ur Barbiturates Screen Ur Phencyclidine Scrn Ur Amphetamines Screen U Benzodiazepines Scrn Urine Cocaine Screen U Marijuana (THC) Screen Influenza A (Rapid) Influenza B (Rapid) 03/29/19 03/29/19 03/29/19 04:15 04:15 09:32 WBC 6.2 RBC 3.64 L Hgb 8.4 L Hct 26.8 L MCV 73 L MCH 23.0 L MCHC 31.4 L RDW 18.5 H Plt Count 269 Lymph % (Auto) 16.8 [place] % (Auto) 12.0 Eos % (Auto) 1.1 Baso % (Auto) 0.6 Absolute Neuts (auto) 4.3 Absolute Lymphs (auto) 1.0 Absolute Monos (auto) 0.7 Absolute Eos (auto) 0.1 Absolute Basos (auto) 0.0 Total Counted Seg Neutrophils % 69.5 Seg Neuts % (Manual) Lymphocytes % (Manual) Atypical Lymphs % Monocytes % (Manual) Eosinophils % (Manual) Basophils % (Manual) Abs Neuts (Manual) Abs Lymphs (Manual) Abs Monocytes (Manual) Absolute Eos (Manual) Abs Basophils (Manual) Toxic Vacuolation Large Platelets Platelet Comment Polychromasia Hypochromasia Poikilocytosis Anisocytosis Microcytosis Target Cells Ovalocytes [place] Cells Schistocytes PT INR APTT Carbonic Acid HCO3/H2CO3 Ratio ABG pH ABG pCO2 ABG pO2 ABG HCO3 ABG Total CO2 ABG O2 Saturation ABG Base Excess VBG pH VBG pCO2 VBG HCO3 VBG Base Excess FiO2 Sodium Potassium Chloride Carbon Dioxide Anion Gap BUN Creatinine Est GFR ( Amer) Est GFR (MDRD) Non-Af Glucose POC Glucose 161 H Hemoglobin A1c % Lactic Acid Calcium Phosphorus Magnesium Total Bilirubin Direct Bilirubin Neonat Total Bilirubin Neonat Direct Bilirubin Neonat Indirect Bili AST ALT Alkaline Phosphatase Ammonia Creatine Kinase CK-MB (CK-2) Troponin I NT-Pro-B Natriuret Pep Total Protein Albumin Triglycerides 100 Cholesterol 100.22 LDL Cholesterol Direct 50 VLDL Cholesterol 20.0 HDL Cholesterol 28 L Lipase TSH Free T4 Urine Color Urine Appearance Urine pH Ur Specific [place] Urine Protein Urine Glucose (UA) Urine Ketones Urine Blood Urine Nitrite (Reflex) Urine Bilirubin Urine Urobilinogen Leukocyte Esterase Rfl Urine RBC (Auto) Urine WBC (Reflex) Squamous Epi Cells Auto Urine Mucus (Auto) Urine Creatinine Protein/Creatinin Ratio Urine Total Protein Urine Ascorbic Acid Urine Opiates Screen Urine Methadone Screen Ur Barbiturates Screen Ur Phencyclidine Scrn Ur Amphetamines Screen U Benzodiazepines Scrn Urine Cocaine Screen U Marijuana (THC) Screen Influenza A (Rapid) Influenza B (Rapid) 03/29/19 03/29/19 03/29/19 09:35 09:59 09:59 WBC RBC Hgb Hct MCV MCH MCHC RDW Plt Count Lymph % (Auto) [place] % (Auto) Eos % (Auto) Baso % (Auto) Absolute Neuts (auto) Absolute Lymphs (auto) Absolute Monos (auto) Absolute Eos (auto) Absolute Basos (auto) Total Counted Seg Neutrophils % Seg Neuts % (Manual) Lymphocytes % (Manual) Atypical Lymphs % Monocytes % (Manual) Eosinophils % (Manual) Basophils % (Manual) Abs Neuts (Manual) Abs Lymphs (Manual) Abs Monocytes (Manual) Absolute Eos (Manual) Abs Basophils (Manual) Toxic Vacuolation Large Platelets Platelet Comment Polychromasia Hypochromasia Poikilocytosis Anisocytosis Microcytosis Target Cells Ovalocytes [place] Cells Schistocytes PT INR APTT Carbonic Acid 0.82 L HCO3/H2CO3 Ratio 23:1 ABG pH 7.48 H ABG pCO2 27.2 L ABG pO2 70.1 L ABG HCO3 19.6 L ABG Total CO2 20.4 L ABG O2 Saturation 95.4 ABG Base Excess -3.2 VBG pH VBG pCO2 VBG HCO3 VBG Base Excess FiO2 21% Sodium 137.3 Potassium 4.1 Chloride 108 H Carbon Dioxide 17 L Anion Gap 12 BUN 36 H Creatinine 3.05 H Est GFR ( Amer) 20 L Est GFR (MDRD) Non-Af 16 L Glucose 129 H POC Glucose Hemoglobin A1c % Lactic Acid Calcium 8.2 L Phosphorus Magnesium Total Bilirubin 0.6 Direct Bilirubin 0.4 Neonat Total Bilirubin Not Reportable Neonat Direct Bilirubin Not Reportable Neonat Indirect Bili Not Reportable AST 21 ALT 14 Alkaline Phosphatase 69 Ammonia Creatine Kinase 178 H CK-MB (CK-2) 1.95 Troponin I 0.118 NT-Pro-B Natriuret Pep 9940 H Total Protein 6.3 Albumin 2.7 L Triglycerides Cholesterol LDL Cholesterol Direct VLDL Cholesterol HDL Cholesterol Lipase TSH Free T4 Urine Color Urine Appearance Urine pH Ur Specific [place] Urine Protein Urine Glucose (UA) Urine Ketones Urine Blood Urine Nitrite (Reflex) Urine Bilirubin Urine Urobilinogen Leukocyte Esterase Rfl Urine RBC (Auto) Urine WBC (Reflex) Squamous Epi Cells Auto Urine Mucus (Auto) Urine Creatinine Protein/Creatinin Ratio Urine Total Protein Urine Ascorbic Acid Urine Opiates Screen Urine Methadone Screen Ur Barbiturates Screen Ur Phencyclidine Scrn Ur Amphetamines Screen U Benzodiazepines Scrn Urine Cocaine Screen U Marijuana (THC) Screen Influenza A (Rapid) Influenza B (Rapid) 03/29/19 03/29/19 10:20 10:20 WBC 6.6 RBC 3.95 Hgb 9.0 L Hct 28.6 L MCV 72 L MCH 22.8 L MCHC 31.5 L RDW 18.8 H Plt Count 271 Lymph % (Auto) 16.2 [place] % (Auto) 6.2 Eos % (Auto) 0.4 Baso % (Auto) 0.6 Absolute Neuts (auto) 5.0 Absolute Lymphs (auto) 1.1 Absolute Monos (auto) 0.4 Absolute Eos (auto) 0.0 Absolute Basos (auto) 0.0 Total Counted Seg Neutrophils % 76.6 Seg Neuts % (Manual) Lymphocytes % (Manual) Atypical Lymphs % Monocytes % (Manual) Eosinophils % (Manual) Basophils % (Manual) Abs Neuts (Manual) Abs Lymphs (Manual) Abs Monocytes (Manual) Absolute Eos (Manual) Abs Basophils (Manual) Toxic Vacuolation Large Platelets Platelet Comment Polychromasia Hypochromasia Poikilocytosis Anisocytosis Microcytosis Target Cells Ovalocytes [place]et[place] Cells Schistocytes PT 16.0 H INR 1.28 APTT 29.8 Carbonic Acid HCO3/H2CO3 Ratio ABG pH ABG pCO2 ABG pO2 ABG HCO3 ABG Total CO2 ABG O2 Saturation ABG Base Excess VBG pH VBG pCO2 VBG HCO3 VBG Base Excess FiO2 Sodium Potassium Chloride Carbon Dioxide Anion Gap BUN Creatinine Est GFR ( Amer) Est GFR (MDRD) Non-Af Glucose POC Glucose Hemoglobin A1c % Lactic Acid Calcium Phosphorus Magnesium Total Bilirubin Direct Bilirubin Neonat Total Bilirubin Neonat Direct Bilirubin Neonat Indirect Bili AST ALT Alkaline Phosphatase Ammonia Creatine Kinase CK-MB (CK-2) Troponin I NT-Pro-B Natriuret Pep Total Protein Albumin Triglycerides Cholesterol LDL Cholesterol Direct VLDL Cholesterol HDL Cholesterol Lipase TSH Free T4 Urine Color Urine Appearance Urine pH Ur Specific Kegley Urine Protein Urine Glucose (UA) Urine Ketones Urine Blood Urine Nitrite (Reflex) Urine Bilirubin Urine Urobilinogen Leukocyte Esterase Rfl Urine RBC (Auto) Urine WBC (Reflex) Squamous Epi Cells Auto Urine Mucus (Auto) Urine Creatinine Protein/Creatinin Ratio Urine Total Protein Urine Ascorbic Acid Urine Opiates Screen Urine Methadone Screen Ur Barbiturates Screen Ur Phencyclidine Scrn Ur Amphetamines Screen U Benzodiazepines Scrn Urine Cocaine Screen U Marijuana (THC) Screen Influenza A (Rapid) Influenza B (Rapid) Chest X-Ray 03/27/19 15:00 IMPRESSION: Cardiomegaly without pulmonary edema. Chest X-Ray 03/29/19 09:30 IMPRESSION: CARDIAC ENLARGEMENT. VASCULAR CONGESTION. Head CT 03/29/19 09:40 IMPRESSION: NORMAL BRAIN CT WITHOUT CONTRAST. EVIDENCE OF ACUTE STROKE: NO. IMPRESSION/RECOMMENDATION: 1. Altered mental status. Probable CVA suspected. CT T scan of the head is negative for CVA. Await MRI. Note that the patient's blood gases did not show hypercapnia. Hence this is most likely is not secondary to a event related to her sleep apnea. . Elevated troponin I: Secondary to supply demand mismatch due to uncontrolled hypertension on admission. No definite evidence of non-ST relation [place]. 3. Hypotension relatively. Secondary to patient's probably reaction to her medications versus secondary to a CVA. 4. Hypertension: Uncontrolled on admission. At present low normal. Will hold antihypertensives. 5. Chronic kidney disease stage III: Avoid nephrotoxic drugs. 6. Obstructive sleep apnea: Continue CPAP. 7. Morbid obesity. Vacations reviewed. Medical regimen and management plan discussed with the type soldering machine tender. Await MRI findings. Medical decision making is of moderate to high complexity in view of still unanswered questions to the etiology of the patient's altered mental status and acute event that she sustained last night. 50 minutes spent as patient more than 50% time spent direct patient care. Will follow.
--- NOTE | 2019-03-29 23:22 | EKG REPORT ---
SEVERITY:- ABNORMAL ECG - SINUS RHYTHM ABNORMAL T, CONSIDER ISCHEMIA, LATERAL LEADS BORDERLINE PROLONGED QT INTERVAL : Confirmed by: Sonu Talamantes 29-Mar-2019 23:22:20
[2019-03-30 04:27] LABS: HEMATOCRIT 28.8 % (36.0-47.0); HEMOGLOBIN 8.8 g/dL (12.0-15.5); MEAN CORPUSCULAR HEMOGLOBIN 22.7 pg (27.0-33.4); MEAN CORPUSCULAR HGB CONC 30.5 g/dL (32.0-36.0); MEAN CORPUSCULAR VOLUME 75 fl (80-97); PLATELET COUNT 293 10^3/uL (150-450); RED BLOOD COUNT 3.87 10^6/uL (3.72-5.28); RED CELL DISTRIBUTION WIDTH 18.6 % (11.5-14.0); WHITE BLOOD COUNT 4.6 10^3/uL (4.0-10.5)
[2019-03-30 04:57] LABS: ABSOLUTE LYMPHOCYTES# (MANUAL) 1.1 10^3/uL (0.5-4.7); ABSOLUTE MONOCYTES # (MANUAL) 0.5 10^3/uL (0.1-1.4); BASOPHILS % (MANUAL) 1 % (0-2); EOSINOPHILS % (MANUAL) 0 % (0-6); LYMPHOCYTES % (MANUAL) 24 % (13-45); MONOCYTES % (MANUAL) 11 % (3-13); NUCLEATED RED BLOOD CELLS 1 /100 WBC (0); SEGMENTED NEUTROPHILS % (MAN) 64 % (42-78); TOTAL CELLS COUNTED 100
[2019-03-30 04:59] LABS: ANISOCYTOSIS 2+; BURR CELLS 1+; OVALOCYTES SLIGHT; POIKILOCYTOSIS 2+; SCHISTOCYTES SLIGHT; TEAR DROP CELLS SLIGHT; TOXIC GRANULATION 1+; TOXIC VACUOLATION PRESENT
[2019-03-30 05:00] LABS: PLATELET COMMENT ADEQUATE
[2019-03-30 05:02] LABS: FREE T4 (FREE THYROXINE) 0.92 ng/dL (0.78-2.19)
[2019-03-30 05:16] LABS: THYROID STIMULATING HORMONE 2.55 uIU/mL (0.47-4.68)
[2019-03-30] MEDS: HEPARIN SOD (PORCINE) 5,000 UNIT/ML 1 ML VIAL SUBCUT SCH (06:32)
[2019-03-30] MEDS: CLINDAMYCIN 300 MG/D5W RTU 300 MG/50 ML RTUPB IV SCH ×3 (06:32→21:18)
[2019-03-30] MEDS: CETIRIZINE 10 MG TABLET PO SCH (09:43)
[2019-03-30] MEDS: ALBUTEROL SULFATE HFA (90 MCG/PUFF) 200 PUFF/8.5 GM MDI IH SCH ×4 (09:43→21:21)
[2019-03-30] MEDS: PANTOPRAZOLE SODIUM 40 MG TABLET.DR PO SCH ×2 (09:43→17:20)
[2019-03-30] MEDS: FLUTICASONE/VILANTEROL 200-25 MCG/DOSE IH SCH (09:43)
[2019-03-30 10:56] LABS: ARTERIAL BLOOD BASE EXCESS -6.1 mmol/L; ARTERIAL BLOOD FIO2 2L; ARTERIAL BLOOD H2CO3 1.21 mmol/L (1.05-1.35); ARTERIAL BLOOD HCO3 19.7 mmol/L (20-24); ARTERIAL BLOOD O2 SATURATION 96.3 % (94-98); ARTERIAL BLOOD PCO2 40.1 mmHg (35-45); ARTERIAL BLOOD PH 7.31 (7.35-7.45); ARTERIAL BLOOD PO2 91.1 mmHg (80-100); ARTERIAL BLOOD TOTAL CO2 20.9 mmol/L (21-25)
--- NOTE | 2019-03-30 11:16 | PDOC CRITICAL CARE PROG REPORT ---
General Date:: 03/30/19 - Critical Care Attending Note Resuscitation Status: Full Code Events in the past 12 to 24 Hours:: Pt is awake and alert. She does not remember the events of yesterday. Staff does report she had NSVT last night. Reason for ICU Addmission:: hypotension, obtundation, - Medications: Medications reviewed and adjusted accordingly: Yes Physical Exam Vital Signs: Temp Pulse Resp BP Pulse Ox 97.9 F 63 15 136/84 H 100 03/30/19 08:00 03/30/19 08:00 03/30/19 09:38 03/30/19 09:38 03/30/19 09:38 Intake & Output 03/29/19 03/30/19 03/31/19 06:59 06:59 06:59 Intake Total 562 150 50 Output Total 750 371 60 Balance -188 -221 -10 Weight 142.4 kg 139.9 kg Weight/Height Weight 139.9 kg Height 5 ft 9 in General appearance: PRESENT: no acute distress, obese, well-developed, well- nourished, other - awake, alert, coherent, conversant. Head exam: PRESENT: atraumatic, normocephalic Respiratory exam: PRESENT: clear to auscultation raúl, unlabored Cardiovascular exam: PRESENT: RRR GI/Abdominal exam: PRESENT: soft, other - obese Extremities exam: PRESENT: other - venous stasis changes Neurological exam: PRESENT: alert, awake, other - normal strength Psychiatric exam: PRESENT: appropriate affect Laboratory/Radiographs Laboratory Results: 03/30/19 04:10 03/29/19 09:59 03/30/19 03/30/19 03/30/19 04:10 04:10 04:10 WBC 4.6 RBC 3.87 Hgb 8.8 L Hct 28.8 L MCV 75 L MCH 22.7 L MCHC 30.5 L RDW 18.6 H Plt Count 293 Seg Neutrophils % Not Reportable Carbonic Acid HCO3/H2CO3 Ratio ABG pH ABG pCO2 ABG pO2 ABG HCO3 ABG O2 Saturation ABG Base Excess FiO2 Ammonia < 8.7 L TSH 2.55 Free T4 0.92 03/30/19 10:40 WBC RBC Hgb Hct MCV MCH MCHC RDW Plt Count Seg Neutrophils % Carbonic Acid 1.21 HCO3/H2CO3 Ratio 16:1 ABG pH 7.31 L ABG pCO2 40.1 ABG pO2 91.1 ABG HCO3 19.7 L ABG O2 Saturation 96.3 ABG Base Excess -6.1 FiO2 2L Ammonia TSH Free T4 03/27/19 03/27/19 03/27/19 17:16 17:16 22:59 Creatine Kinase 241 H CK-MB (CK-2) 2.48 Troponin I 0.262 0.214 NT-Pro-B Natriuret Pep 44613 H 22897 H 03/28/19 03/28/19 03/28/19 05:36 05:36 11:05 Creatine Kinase 142 H 117 CK-MB (CK-2) 1.91 Troponin I 0.190 NT-Pro-B Natriuret Pep 03/28/19 03/29/19 03/29/19 11:05 09:59 09:59 Creatine Kinase 178 H CK-MB (CK-2) 1.66 1.95 Troponin I 0.167 0.118 NT-Pro-B Natriuret Pep 9940 H Impressions: Head MRI 03/29/19 00:00 IMPRESSION: SMALL FOCAL AREAS OF RESTRICTED DIFFUSION IN BOTH CEREBRAL HEMISPHERES DESCRIBED. GIVEN THE DIFFUSE BILATERAL DISTRIBUTION, THESE COULD BE EMBOLIC PHENOMENON. EVIDENCE OF ACUTE STROKE: YES. NO SINGLE VASCULAR DISTRIBUTION. Chest X-Ray 03/29/19 09:30 IMPRESSION: CARDIAC ENLARGEMENT. VASCULAR CONGESTION. Head CT 03/29/19 09:40 IMPRESSION: NORMAL BRAIN CT WITHOUT CONTRAST. EVIDENCE OF ACUTE STROKE: NO. All labs, radiographs, diagnostic studies and EKGs were personally reviewed: Yes Assessment and Plan - Diagnosis (1) Altered mental status Is this a current diagnosis for this admission?: Yes (2) Cellulitis of leg Qualifiers: Laterality: unspecified laterality Qualified Code(s): L03.119 - Cellulitis of unspecified part of limb Is this a current diagnosis for this admission?: Yes (3) Elevated troponin Is this a current diagnosis for this admission?: Yes (4) Hypotension Is this a current diagnosis for this admission?: Yes (5) Heart failure Qualifiers: Heart failure type: other Qualified Code(s): I50.89 - Other heart failure; I50.8 - Other heart failure Is this a current diagnosis for this admission?: Yes (6) Chronic kidney disease, stage 3 Is this a current diagnosis for this admission?: Yes Plan Summary: Assessment: 49 yo woman with obtundation, acute CVA, CHF,hypotension, CKD, PVD, elevated troponins Plan: 1. Respiratory: stable on room ait 2. CV: CHF. hypotension, resolved. BP meds on hold. Echo done. Dr. Jacques following 3. Renal: CKD. Lasix stopped. BMP pending 4. Neuro: altered mental status and obtundation, have resolved. MRI did show "small focal areas of restricted diffusion in both cerebral hemispheres....acute CVA". I don't these findings are responsible for pt's episode yesterday. Her mental status and neurological status have returned to baseline. I think the episode yesterday was due to cerebral hypoperfusion in the setting of hypotension. Her SBP was in the 80s and she was admitted with SBPs in the 200s. Now that her SBP is in the 130s, her mentation has improved. Will order carotid dopplers. Asa not started b/c pt has asa allergey 5. ID: LE cellulits. On clindmycin 6. Endocrine: monitor blood sugars 7. Nutrition: renal diet 8. Vascular: LE edema and venous stasis changes. Will order LE dopplers 9. PT/OT 10. Prophylaxis: sq heparin 11. Daughter at bedside. Updated on pt condition and plan of care 12. Disposition: stable for transfer to [facility] Critical Time Critical Time (minutes): 0 - level three hospital followup Level of Care: [facility] -: 1. The care of a critical patient is a dynamic process. This note is a healthcare sales representative synopsis but static in nature. The timeframe for treatments given in order is not necessarily the actual time these treatments may have been done. 2. This patient requires critical care secondary to ongoing requirements for therapy not offered or safe outside the critical care environment. Transfer to a lower level of care will result in altered life or limb morbidity and mortality. 3. Multidisciplinary rounds completed. 4. ABCDE bundle addressed.
[2019-03-30 12:17] LABS: ALBUMIN 2.7 g/dL (3.5-5.0); ALKALINE PHOSPHATASE 70 U/L (38-126); ANION GAP 10 (5-19); ASPARTATE AMINO TRANSFERASE 26 U/L (14-36); BILIRUBIN,DIRECT 0.4 mg/dL (0.0-0.4); BILIRUBIN,TOTAL 0.5 mg/dL (0.2-1.3); BLOOD UREA NITROGEN 43 mg/dL (7-20); CALCIUM 8.3 mg/dL (8.4-10.2); CARBON DIOXIDE 20 mmol/L (22-30); CHLORIDE 108 mmol/L (98-107); GLUCOSE 102 mg/dL (75-110); POTASSIUM 4.1 mmol/L (3.6-5.0); TOTAL PROTEIN 6.4 g/dL (6.3-8.2)
--- NOTE | 2019-03-30 15:57 | XCELERA REPORT ---
[address] [address] Transthoracic Echocardiogram Report Name: LUCRETIA JOYCE Age: 49 yrs Gender: Female : 1970 Patient Status: Inpatient Patient Location: ICU^611^A Study Date: 03/29/2019 01:58 PM Height: 69 in Weight: 313 lb BSA: 2.5 m2 Procedure: A two-dimensional transthoracic echocardiogram with color flow and Doppler was performed. The study was technically limited with all images being suboptimal in quality. Reason For Study: CHF, hypotension History: CHF, hypotension. Ordering Physician: VISHAL SEYMOUR Performed By: Elisha Bocanegra Interpretation Summary There is no obvious cardiac source of embolus noted on this transthoracic echocardiogram. Follow-up with a TEJINDER is suggested if cardiac source is still suspected. The left ventricle is normal in size. There is moderate to severe concentric left ventricular hypertrophy. LV EF is 65% Left ventricular systolic function is normal. Doppler measurements suggest normal left ventricular diastolic function The left ventricular wall motion is normal. There is no thrombus. cANNOT ASSESS asd,vsd, OR pfo. The right ventricle is grossly normal size. The right ventricle is not well visualized secondary to technical limitations The right atrium is normal. The left atrium is mildly dilated. There is mild mitral annular calcification. There is no evidence of mitral valve prolapse. There is no vegetation seen on the mitral valve. There is no mitral valve stenosis. There is a mild to moderate amount of mitral regurgitation There is no aortic valve stenosis There is no LVOT obstruction. No aortic regurgitation is present. There is no tricuspid stenosis. There is a mild amount of tricuspid regurgitation aT LEAST MOLD PULMONARY HYPERTENSION..RVSP IS AT LEAST 40 MM OF Hg., WITH RA MEAN OF AT LEAST 20 . There is no pulmonic valvular stenosis. There is a trace amount of pulmonic regurgitation The aortic root is normal size. The inferior vena cava appeared dilated and did not change with respiration (RAP > 20 mmHg) There is no pericardial effusion. There is no obvious cardiac source of embolus noted on this transthoracic echocardiogram. Follow-up with a TEJINDER is suggested if cardiac source is still suspected MMode/2D Measurements & Calculations RVDd: 3.2 cm LVIDd: 4.5 cm FS: 33.0 % Ao root diam: 2.5 cm IVSd: 1.7 cm LVIDs: 3.0 cm EDV(Teich): Ao root area: LVPWd: 1.7 cm 91.5 ml 5.0 cm2 ESV(Teich): LA dimension: 4.3 cm 35.1 ml EF(Teich): 61.6 % LVLd ap4: 8.7 cm SV(MOD-sp4): EDV(MOD-sp4): 57.0 ml 99.0 ml LVLs ap4: 7.2 cm ESV(MOD-sp4): 42.0 ml EF(MOD-sp4): 57.6 % Doppler Measurements & Calculations MV E max binh: MV P1/2t max binh: Ao V2 max: LV V1 max P.0 cm/sec 115.4 cm/sec 162.9 cm/sec 4.6 mmHg MV A max binh: MV P1/2t: 69.1 msec Ao max PG: LV V1 max: 72.9 cm/sec MVA(P1/2t): 3.2 cm2 10.6 mmHg 106.9 cm/sec MV E/A: 1.4 MV dec slope: 489.1 cm/sec2 MV dec time: 0.25 sec PA V2 max: PI end-d binh: TR max binh: MV P1/2t-pr_phl: 75.5 cm/sec 114.0 cm/sec 225.3 cm/sec 69.1 msec PA max P.3 mmHg TR max P.3 mmHg Left Ventricle The left ventricle is normal in size. There is moderate to severe concentric left ventricular hypertrophy. LV EF is 65%. Left ventricular systolic function is normal. Doppler measurements suggest normal left ventricular diastolic function. The left ventricular wall motion is normal. There is no thrombus. cANNOT ASSESS asd,vsd, OR pfo. Right Ventricle The right ventricle is grossly normal size. The right ventricle is not well visualized secondary to technical limitations. Atria The right atrium is normal. The left atrium is mildly dilated. Mitral Valve There is mild mitral annular calcification. There is no evidence of mitral valve prolapse. There is no vegetation seen on the mitral valve. There is no mitral valve stenosis. There is a mild to moderate amount of mitral regurgitation. Aortic Valve There is no aortic valve stenosis. There is no LVOT obstruction. No aortic regurgitation is present. Tricuspid Valve There is no tricuspid stenosis. There is a mild amount of tricuspid regurgitation. aT LEAST MOLD PULMONARY HYPERTENSION..RVSP IS AT LEAST 40 MM OF Hg., WITH RA MEAN OF AT LEAST 20 . Pulmonic Valve There is no pulmonic valvular stenosis. There is a trace amount of pulmonic regurgitation. Great Vessels The aortic root is normal size. The inferior vena cava appeared dilated and did not change with respiration (RAP > 20 mmHg). Effusions There is no pericardial effusion. : VISHAL SEYMOUR, Melani
[2019-03-30] MEDS: MONTELUKAST SODIUM 10 MG TABLET PO SCH (17:19)
--- NOTE | 2019-03-30 17:22 | Progress Note ---
Provider Note Provider Note: CARDIOLOGY PROGRESS NOTE by Dr. Melani Lentz on 03/30/2019. OBJECTIVE: The patient is more awake. She denies any chest pain or discomfort. There is no focal deficits hence there is no definite evidence of CVA. There is no TIA CVA symptoms. Yesterday night had a run of nonsustained V. tach. Patient was asymptomatic. There is no shortness of breath. There is no PND or orthopnea. At present there is no recurrence of ventricular or atrial arrhythmias. PHYSICAL EXAMINATION: The patient is morbidly obese. In no acute distress. Selected Entries 03/30/19 16:00 Temperature 99.0 F Temperature Core Source Pulse Rate 70 Respiratory 22 H Rate Blood Pressure 145/90 H [Right Upper Arm] Blood Pressure 108 Mean [Right Upper Arm] Blood Pressure Supine Position [Right Upper Arm] O2 Sat by Pulse 100 Oximetry Oxygen Delivery Nasal Cannula Method ( includes room air) Oxygen Flow 2 Rate HEAD: Is atraumatic normocephalic. EYES: Pupils are equal round regular reactive to light accommodation. Extraocular movements are normal. There is no conjunctival pallor. There is no scleral icterus. EARS: Tympanic membranes are intact. External auditory canals are clear. NOSE: There is no deviated nasal septum. There is no inflammation nasal mucous membrane. MOUTH: Mucous membranes of the mouth are moist. Tongue is moist. THROAT: There is no redness of the oropharynx there is no exudates. SKIN: There is no skin rashes there is no petechia or ecchymosis. NECK: Is supple. There is no JVD. Carotids are equal there is no bruit. Face: There is seems to be a mild left facial droop but the patient is able to wrinkle eyebrows. And raise both eyebrows NECK: Is supple. There is no JVD. Carotids are equal there is no bruits. THERE is no accessory muscle respiration use. LUNGS: Is clear to auscultation percussion. HEART: S1-S2 is heard. There is an S4 gallop present. There is no S3 gallop. There is systolic murmur left sternal border and the apex there is no rub. ABDOMEN: Soft. Obese. Nontender. There is no) megaly. Bowel sounds well heard. EXTREMITIES femorals are deep. There is no femoral bruits. LEG pulses are diminished. There is trace to mild pedal edema bilaterally. There is no DVT or cellulitis. There is no cyanosis or clubbing. GELATIN POWDER MIXER: The patient is conscious very drowsy but seems to be oriented x3. She is able to move all 4 extremities. PSYCHIATRIC: The patient does not appear to be anxious or a gitated. Labs- All tests 24 hr 03/30/19 03/30/19 03/30/19 04:10 04:10 04:10 WBC 4.6 RBC 3.87 Hgb 8.8 L Hct 28.8 L MCV 75 L MCH 22.7 L MCHC 30.5 L RDW 18.6 H Plt Count 293 Lymph % (Auto) Not Reportable [place] % (Auto) Not Reportable Eos % (Auto) Not Reportable Baso % (Auto) Not Reportable Absolute Neuts (auto) Not Reportable Absolute Lymphs (auto) Not Reportable Absolute Monos (auto) Not Reportable Absolute Eos (auto) Not Reportable Absolute Basos (auto) Not Reportable Total Counted 100 Seg Neutrophils % Not Reportable Seg Neuts % (Manual) 64 Lymphocytes % (Manual) 24 Monocytes % (Manual) 11 Eosinophils % (Manual) 0 Basophils % (Manual) 1 Abs Neuts (Manual) 2.9 Abs Lymphs (Manual) 1.1 Abs Monocytes (Manual) 0.5 Absolute Eos (Manual) 0.0 Abs Basophils (Manual) 0.0 Nucleated RBCs 1 Toxic Granulation 1+ Toxic Vacuolation PRESENT Platelet Comment ADEQUATE Poikilocytosis 2+ Anisocytosis 2+ Tear Drop Cells SLIGHT Ovalocytes SLIGHT Neetu Cells 1+ Schistocytes SLIGHT Carbonic Acid HCO3/H2CO3 Ratio ABG pH ABG pCO2 ABG pO2 ABG HCO3 ABG Total CO2 ABG O2 Saturation ABG Base Excess FiO2 Sodium Potassium Chloride Carbon Dioxide Anion Gap BUN Creatinine Est GFR ( Amer) Est GFR (MDRD) Non-Af Glucose Calcium Total Bilirubin Direct Bilirubin Neonat Total Bilirubin Neonat Direct Bilirubin Neonat Indirect Bili AST ALT Alkaline Phosphatase Ammonia < 8.7 L Total Protein Albumin TSH 2.55 Free T4 0.92 03/30/19 03/30/19 03/30/19 10:40 11:51 11:51 WBC RBC Hgb Hct MCV MCH MCHC RDW Plt Count Lymph % (Auto) [place] % (Auto) Eos % (Auto) Baso % (Auto) Absolute Neuts (auto) Absolute Lymphs (auto) Absolute Monos (auto) Absolute Eos (auto) Absolute Basos (auto) Total Counted Seg Neutrophils % Seg Neuts % (Manual) Lymphocytes % (Manual) Monocytes % (Manual) Eosinophils % (Manual) Basophils % (Manual) Abs Neuts (Manual) Abs Lymphs (Manual) Abs Monocytes (Manual) Absolute Eos (Manual) Abs Basophils (Manual) Nucleated RBCs Toxic Granulation Toxic Vacuolation Platelet Comment Poikilocytosis Anisocytosis Tear Drop Cells Ovalocytes Andale Cells Schistocytes Carbonic Acid 1.21 HCO3/H2CO3 Ratio 16:1 ABG pH 7.31 L ABG pCO2 40.1 ABG pO2 91.1 ABG HCO3 19.7 L ABG Total CO2 20.9 L ABG O2 Saturation 96.3 ABG Base Excess -6.1 FiO2 2L Sodium 138.3 Potassium 4.1 Chloride 108 H Carbon Dioxide 20 L Anion Gap 10 BUN 43 H Creatinine 3.37 H Est GFR ( Amer) 18 L Est GFR (MDRD) Non-Af 15 L Glucose 102 Calcium 8.3 L Total Bilirubin 0.5 Direct Bilirubin 0.4 Neonat Total Bilirubin Not Reportable Neonat Direct Bilirubin Not Reportable Neonat Indirect Bili Not Reportable AST 26 ALT 15 Alkaline Phosphatase 70 Ammonia < 8.7 L Total Protein 6.4 Albumin 2.7 L TSH Free T4 Chest X-Ray 03/27/19 15:00 IMPRESSION: Cardiomegaly without pulmonary edema. Head MRI 03/29/19 00:00 IMPRESSION: SMALL FOCAL AREAS OF RESTRICTED DIFFUSION IN BOTH CEREBRAL HEMISPHERES DESCRIBED. GIVEN THE DIFFUSE BILATERAL DISTRIBUTION, THESE COULD BE EMBOLIC PHENOMENON. EVIDENCE OF ACUTE STROKE: YES. NO SINGLE VASCULAR DISTRIBUTION. Chest X-Ray 03/29/19 09:30 IMPRESSION: CARDIAC ENLARGEMENT. VASCULAR CONGESTION. Head CT 03/29/19 09:40 IMPRESSION: NORMAL BRAIN CT WITHOUT CONTRAST. EVIDENCE OF ACUTE STROKE: NO. IMPRESSION/RECOMMENDATION: 1. Altered mental status. Probable CVA suspected. CT T scan of the head is negative for CVA. Await MRI. Note that the patient's blood gases did not show hypercapnia. Hence this is most likely is not secondary to a event related to her sleep apnea. I do not believe that this is a CVA in spite of the MRI findings. The patient's altered mental status most likely secondary to hypotension in a patient who is usually used to a higher blood pressure levels. .. Elevated troponin I: Secondary to supply demand mismatch due to uncontrolled hypertension on admission. No definite evidence of non-ST relation [place]. 3. Hypertension: Uncontrolled on admission. At present normal. Would cautiously and slowly start patient's antihypertensives. 4. Chronic kidney disease stage III: Avoid nephrotoxic drugs. 5. Obstructive sleep apnea: Continue CPAP. 6. Of asymptomatic nonsustained V. tach. Patient is is at a low risk for sudden due to the fact she her LV ejection fraction is normal, and the patient has no prior history of sudden . 8. Morbid obesity. Patient is reviewed. Medical regimen and management plan discussed with attending physician on the case. Medical decision making is of moderate complexity. 40 minutes spent as patient more than 50% time spent in direct patient care. Will follow.
[2019-03-30] MEDS: ACETAMINOPHEN 325 MG TABLET PO PRN (21:17)
[2019-03-30] MEDS: ONDANSETRON HCL INJ/PF 4 MG/2 ML SDV IV PRN (21:18)
[2019-03-31 04:32] LABS: HEMATOCRIT 28.4 % (36.0-47.0); HEMOGLOBIN 8.7 g/dL (12.0-15.5); MEAN CORPUSCULAR HEMOGLOBIN 22.7 pg (27.0-33.4); MEAN CORPUSCULAR HGB CONC 30.6 g/dL (32.0-36.0); MEAN CORPUSCULAR VOLUME 74 fl (80-97); PLATELET COUNT 301 10^3/uL (150-450); RED BLOOD COUNT 3.84 10^6/uL (3.72-5.28); RED CELL DISTRIBUTION WIDTH 18.5 % (11.5-14.0); WHITE BLOOD COUNT 4.8 10^3/uL (4.0-10.5)
[2019-03-31 05:05] LABS: ABSOLUTE LYMPHOCYTES# (MANUAL) 0.9 10^3/uL (0.5-4.7); ABSOLUTE MONOCYTES # (MANUAL) 0.5 10^3/uL (0.1-1.4); BASOPHILS % (MANUAL) 0 % (0-2); EOSINOPHILS % (MANUAL) 2 % (0-6); LYMPHOCYTES % (MANUAL) 19 % (13-45); MONOCYTES % (MANUAL) 10 % (3-13); SEGMENTED NEUTROPHILS % (MAN) 69 % (42-78); TOTAL CELLS COUNTED 100
[2019-03-31 05:06] LABS: ANISOCYTOSIS 1+; PLATELET COMMENT ADEQUATE; POLYCHROMASIA 1+
[2019-03-31] MEDS: CLINDAMYCIN 300 MG/D5W RTU 300 MG/50 ML RTUPB IV SCH ×3 (05:15→21:14)
[2019-03-31 05:58] LABS: ALBUMIN 2.6 g/dL (3.5-5.0); ALKALINE PHOSPHATASE 70 U/L (38-126); ANION GAP 7 (5-19); ASPARTATE AMINO TRANSFERASE 23 U/L (14-36); BILIRUBIN,DIRECT 0.1 mg/dL (0.0-0.4); BILIRUBIN,TOTAL 0.3 mg/dL (0.2-1.3); BLOOD UREA NITROGEN 43 mg/dL (7-20); CALCIUM 8.1 mg/dL (8.4-10.2); CARBON DIOXIDE 21 mmol/L (22-30); CHLORIDE 111 mmol/L (98-107); GLUCOSE 92 mg/dL (75-110); POTASSIUM 4.2 mmol/L (3.6-5.0); TOTAL PROTEIN 5.9 g/dL (6.3-8.2)
[2019-03-31] MEDS: PANTOPRAZOLE SODIUM 40 MG TABLET.DR PO SCH ×2 (09:54→17:43)
[2019-03-31] MEDS: CETIRIZINE 10 MG TABLET PO SCH (09:54)
--- NOTE | 2019-03-31 11:03 | XCELERA REPORT ---
[address] [address] Lower Extremity Venous Evaluation Procedure: Color flow and duplex imaging bilaterally of the veins of the lower extremities as well as the Common Femoral veins. Right Sided Venous Evaluation Challenging to obtain complete visualization due to swelling, immobility. Normal vessel filling wall to wall, compression and augmentation as well as Colour flow down to the infrageniculate veins. Left Sided Venous Evaluation Challenging to obtain complete visualization due to swelling, immobility. Distal Femoral, Peroneal not visualized. Normal vessel filling wall to wall, compression and augmentation as well as Colour flow down to the infrageniculate veins. Interpretation Summary No duplex evidence of DVT or obstruction in the bilateral lower extremities. Small gaps in vessel imaging due to challenges as noted. Name: LUCRETIA JOYCE Age: 49 yrs Gender: Female : 1970 Patient Status: Inpatient Patient Location: [address] Study Date: 03/31/2019 09:00 AM Reason For Study: LE edema Ordering Physician: VISHAL SEYMOUR Performed By: Kylah Ward : VISHAL SEYMOUR > Scotty Perkins
--- NOTE | 2019-03-31 13:12 | PDOC CRITICAL CARE PROG REPORT ---
General Date:: 03/31/19 ICU Day:: 3 Hospital Day:: 3 Resuscitation Status: Full Code Events in the past 12 to 24 Hours:: Evidence on MRI suggestive of stroke. Review of systems relevant to events:: Neurological and CV. Reason for ICU Addmission:: hypotension, obtundation, hypertensive urgency. - Medications: Medications reviewed and adjusted accordingly: Yes Vasopressors:: None Sedation:: None. Physical Exam Vital Signs: Temp Pulse Resp BP Pulse Ox 98.2 F 80 14 167/103 H 98 03/31/19 07:11 03/31/19 12:00 03/31/19 12:00 03/31/19 12:00 03/31/19 12:00 Intake & Output 03/30/19 03/31/19 04/01/19 06:59 06:59 06:59 Intake Total 150 150 Output Total 371 970 Balance -221 -820 Weight 139.9 kg 142.5 kg Weight/Height Weight 142.5 kg Height 5 ft 9 in General appearance: PRESENT: no acute distress, cooperative Head exam: PRESENT: atraumatic, normocephalic Eye exam: PRESENT: conjunctiva pink, EOMI, PERRLA. ABSENT: scleral icterus Ear exam: PRESENT: normal external ear exam Mouth exam: PRESENT: moist, tongue midline Neck exam: ABSENT: carotid bruit, JVD, lymphadenopathy, thyromegaly Respiratory exam: PRESENT: clear to auscultation raúl. ABSENT: rales, rhonchi, wheezes Cardiovascular exam: PRESENT: RRR. ABSENT: diastolic murmur, rubs, systolic murmur GI/Abdominal exam: PRESENT: normal bowel sounds, soft. ABSENT: distended, guarding, mass, organolmegaly, rebound, tenderness Rectal exam: PRESENT: deferred Extremities exam: PRESENT: full ROM. ABSENT: calf tenderness, clubbing, pedal edema Musculoskeletal exam: PRESENT: normal inspection Neurological exam: PRESENT: alert, altered, awake, oriented to person, oriented to place, oriented to time, oriented to situation, CN II-XII grossly intact. ABSENT: motor sensory deficit Skin exam: PRESENT: dry, intact, warm. ABSENT: cyanosis, rash Laboratory/Radiographs Laboratory Results: 03/31/19 04:07 03/31/19 04:07 03/31/19 03/31/19 04:07 04:07 WBC 4.8 RBC 3.84 Hgb 8.7 L Hct 28.4 L MCV 74 L MCH 22.7 L MCHC 30.6 L RDW 18.5 H Plt Count 301 Seg Neutrophils % Not Reportable Sodium 139.1 Potassium 4.2 Chloride 111 H Carbon Dioxide 21 L Anion Gap 7 BUN 43 H Creatinine 3.20 H Est GFR ( Amer) 19 L Glucose 92 Calcium 8.1 L Total Bilirubin 0.3 AST 23 Alkaline Phosphatase 70 Total Protein 5.9 L Albumin 2.6 L 03/27/19 18:43 Clean Catch Midstream Urine Culture - Final Urogenital Elaina 03/27/19 03/27/19 03/27/19 17:16 17:16 22:59 Creatine Kinase 241 H CK-MB (CK-2) 2.48 Troponin I 0.262 0.214 NT-Pro-B Natriuret Pep 36737 H 43977 H 03/28/19 03/28/19 03/28/19 05:36 05:36 11:05 Creatine Kinase 142 H 117 CK-MB (CK-2) 1.91 Troponin I 0.190 NT-Pro-B Natriuret Pep 03/28/19 03/29/19 03/29/19 11:05 09:59 09:59 Creatine Kinase 178 H CK-MB (CK-2) 1.66 1.95 Troponin I 0.167 0.118 NT-Pro-B Natriuret Pep 9940 H Impressions: Head MRI 03/29/19 00:00 IMPRESSION: SMALL FOCAL AREAS OF RESTRICTED DIFFUSION IN BOTH CEREBRAL HEMISPHERES DESCRIBED. GIVEN THE DIFFUSE BILATERAL DISTRIBUTION, THESE COULD BE EMBOLIC PHENOMENON. EVIDENCE OF ACUTE STROKE: YES. NO SINGLE VASCULAR DISTRIBUTION. Chest X-Ray 03/29/19 09:30 IMPRESSION: CARDIAC ENLARGEMENT. VASCULAR CONGESTION. Head CT 03/29/19 09:40 IMPRESSION: NORMAL BRAIN CT WITHOUT CONTRAST. EVIDENCE OF ACUTE STROKE: NO. All labs, radiographs, diagnostic studies and EKGs were personally reviewed: Yes In addition, reports of radiographic and diagnostic studies were read: Yes Assessment and Plan - Diagnosis (1) Acute CVA (cerebrovascular accident) Is this a current diagnosis for this admission?: Yes Plan: In view of MRI findings we will consider this to be a stroke with uncontrolled BP a primary cause. Echo looks good. Carotid dopplers not read yet. Pattern not consistent with a watershed pattern. ASA and lipitor ordered. Lipid panel for AM. Does not need ICU. (2) Altered mental status Is this a current diagnosis for this admission?: Yes Plan: She was said to altered on admission. Not now but thought process is somewhat slow. (3) Accelerated hypertension Is this a current diagnosis for this admission?: Yes Plan: No back on usual medications. In view of what may be new stroke will allow BP to climb. Keep below 200/120 though. Plan Summary: Transfer to tele if bed available and stroke treatment. Critical Time Critical Time (minutes): 30 Level of Care: TELE Anticipated discharge: Home Within: within 72 hours -: 1. The care of a critical patient is a dynamic process. This note is a medical sales representative synopsis but static in nature. The timeframe for treatments given in order is not necessarily the actual time these treatments may have been done. 2. This patient requires critical care secondary to ongoing requirements for therapy not offered or safe outside the critical care environment. Transfer to a lower level of care will result in altered life or limb morbidity and mortality. 3. Multidisciplinary rounds completed. 4. ABCDE bundle addressed.
[2019-03-31] MEDS: ACETAMINOPHEN 325 MG TABLET PO PRN ×2 (15:04→19:59)
[2019-03-31] MEDS: HYDRALAZINE HCL 50 MG TABLET PO SCH ×2 (15:05→21:09)
[2019-03-31] MEDS: ALBUTEROL SULFATE HFA (90 MCG/PUFF) 200 PUFF/8.5 GM MDI IH SCH ×4 (16:17→21:13)
[2019-03-31] MEDS: FLUTICASONE/VILANTEROL 200-25 MCG/DOSE IH SCH (16:17)
[2019-03-31] MEDS ORDERED: ASPIRIN 325 MG TABLET PO SCH (16:30)
[2019-03-31] MEDS: DOXAZOSIN MESYLATE 4 MG TABLET PO SCH (17:26)
[2019-03-31] MEDS: NIFEDIPINE 30 MG TAB.ER.24 PO SCH (17:26)
[2019-03-31] MEDS: METOPROLOL SUCCINATE 50 MG TAB.SR.24H PO SCH (17:43)
[2019-03-31] MEDS: MONTELUKAST SODIUM 10 MG TABLET PO SCH (17:43)
--- NOTE | 2019-03-31 18:23 | PDOC CONSULTATION ---
Consultation Consult Date: 03/31/19 Provider Consulted: Paulina BLAS Consult reason:: Acute on chronic kidney disease. History of Present Illness Admission Date/PCP: 03/27/19 22:11 VJ LEBLANC MD History of Present Illness: LUCRETIA JOYCE is a 49 year old female with a past medical history of CKD stage 3 with a baseline creatinine of around 2 in the background of poorly controlled hypertension, nephrotic proteinuria, history of congestive heart failure, CAD was admitted with history of hypertensive urgency.Started on nitroglycerin drip. However she had a rapid response that and became hypotensive and was then transferred to the ICU for further management.Currently she is while awake alert and oriented. She says she does not remember the exact events that unfolded. She has a headache but she thinks that is part of her migraine headache. Discussions with treating nurse. Apparently motor equipment commanding officer thinks that the patient became hypotensive and led to hypoperfusion brain injury that led to her focal deficits. Apparently once her blood pressure recovered her deficits are also improved.Labs and medications were reviewed. Past Medical History Cardiac Medical History: Reports: Heart Murmur, Hyperlipidemia, Hypertension- primary, Myocardial Infarction - 2004, Peripheral Vascular Disease Denies: Atrial Fibrillation, Coronary Artery Disease, Pulmonary Embolism Pulmonary Medical History: Reports: Asthma, Pneumonia - February 2011, hospitalized Denies: Bronchitis, Chronic Obstructive Pulmonary Disease (COPD), Respiratory Failure, Sleep Apnea, Tuberculosis Neurological Medical History: Reports: Migraine Denies: Seizures Renal/ Medical History: Reports: Chronic Kidney Disease Stage IV Denies: Benign Prostatic Hyperplasia, End Stage Renal Disease Malignancy Medical History: Denies: Breast Cancer, Cervical Cancer, Leukemia, Lung Cancer GI Medical History: Reports: Gastroesophageal Reflux Disease, Hiatal Hernia Denies: Crohn's Disease Musculoskeltal Medical History: Reports: Arthritis Denies: Fibromyalgia, Rheumatoid Arthritis Psychiatric Medical History: Reports: Bipolar Disorder, Depression, Post Traumatic Stress Disorder Denies: Dementia Infectious Medical History: Denies: HIV Past Surgical History Past Surgical History: Reports: Section - 3, Cholecystectomy, Hysterectomy, Orthopedic Surgery - Bilateral carpal tunnel release, bilateral ulnar nerve transposition., Tubal Ligation Denies: Appendectomy, Colostomy, Coronary Artery Bypass Graft, Gastric Bypass Surgery, Herniorrhaphy, Mastectomy, Pacemaker, Tonsillectomy Social History Smoking Status: Current Every Day Smoker Electronic Cigarette use?: No Frequency of Alcohol Use: Rare Hx Recreational Drug Use: No Drugs: None Hx Prescription Drug Abuse: No - Advance Directive Resuscitation Status: Full Code Family History Parental Family History Reviewed: Yes - Her mother has ESRD on dialysis. Children Family History Reviewed: No Sibling(s) Family History Reviewed.: No Medication/Allergy Home Medications: Omeprazole [Prilosec] 40 mg PO BID 10/29/14 Clonidine HCl [Catapres] 0.3 mg PO Q8 05/09/15 Montelukast Sodium 10 mg PO QPM 05/09/15 Oxycodone HCl [Oxycodone HCl 10 MG Tablet] 10 mg PO Q6HP PRN 06/25/18 Albuterol Sulfate [Proair HFA Inhalation Aerosol 8.5 gm MDI] 2 puff IH QID 03/28/19 Butorphanol Tartrate 1 spray NASL DAILYP PRN MDD 1 SRAY PER DAY 03/28/19 Cetirizine HCl [Zyrtec 10 mg Tablet] 10 mg PO DAILY 03/28/19 Cuvposa 5 ml PO TID 03/28/19 Doxazosin Mesylate [Cardura 4 mg Tablet] 8 mg PO BID 03/28/19 Fluticasone/Salmeterol [Advair 500-50 Diskus 14 Dose/Diskus] 1 puff IH BID 03/28/19 Promethazine HCl [Phenergan 25 mg Tablet] 25 mg PO Q12HP PRN 03/28/19 Trimethobenzamide HCl [Tigan 300 mg Capsule] 300 mg PO TIDP PRN 03/28/19 Allergies/Adverse Reactions: aspirin [Aspirin] Allergy (Severe, Verified 06/25/18 16:07) Respiratory arrest diclofenac potassium [From Cataflam] Allergy (Severe, Verified 06/25/18 16:07) Anaphylaxis ibuprofen [From Motrin] Allergy (Severe, Verified 06/25/18 16:07) ketorolac tromethamine [From Toradol] Allergy (Severe, Verified 06/25/18 16:07) naproxen Allergy (Severe, Verified 06/25/18 16:07) prazosin [Prazosin] Allergy (Severe, Verified 06/25/18 16:07) Facial swelling tramadol HCl [From Ultram] Allergy (Severe, Verified 06/25/18 16:07) lisinopril [Lisinopril] Allergy (Intermediate, Verified 06/25/18 16:07) Facial swelling sumatriptan [From Imitrex] Allergy (Intermediate, Verified 06/25/18 16:07) zolpidem tartrate [From Ambien] Allergy (Intermediate, Verified 06/25/18 16:07) lactose Allergy (Mild, Verified 06/25/18 16:07) metoclopramide HCl [From Reglan] Allergy (Mild, Verified 06/25/18 16:07) prochlorperazine edisylate [From Compazine] Allergy (Mild, Verified 06/25/18 16:07) Tremors prochlorperazine maleate [From Compazine] Allergy (Mild, Verified 06/25/18 16:07) Tremors egg [Egg] Allergy (Verified 06/25/18 16:07) medroxyprogesterone acetate [From Depo-Provera] Adverse Reaction (Severe, Verified 06/25/18 16:07) Hemorrhage amlodipine besylate [From Norvasc] Adverse Reaction (Intermediate, Verified 06/25/18 16:07) Migraine nisoldipine [From Sular] Adverse Reaction (Intermediate, Verified 06/25/18 16:07) Hypertension arificial sweetners Allergy (Severe, Uncoded 06/25/18 16:07) polyester material Allergy (Mild, Uncoded 06/25/18 16:07) Urticaria amovig Allergy (Uncoded 09/28/18 17:29) emgalility Allergy (Uncoded 09/28/18 17:29) water Adverse Reaction (Intermediate, Uncoded 06/25/18 16:07) VOMITING Review of Systems Constitutional: PRESENT: fatigue, headache(s), weakness. ABSENT: anorexia, fever(s), night sweats Nose, Mouth, and Throat: ABSENT: mouth pain, sore throat Cardiovascular: PRESENT: dyspnea on exertion, edema, orthropnea. ABSENT: chest pain, palpitations Respiratory: ABSENT: hemoptysis Gastrointestinal: ABSENT: abdominal pain, coffee ground emesis, diarrhea, dysphagia, heartburn, hematemesis, hematochezia Genitourinary: ABSENT: dysuria, hematuria Musculoskeletal: ABSENT: deformity Integumentary: ABSENT: lesions, pruritus, rash Neurological: ABSENT: abnormal movements, abnormal speech, focal weakness, frequent falls, numbness Hematologic/Lymphatic: ABSENT: easy bruising, lymphadenopathy Physical Exam Vital Signs: Temp Pulse Resp BP Pulse Ox 99.5 F 89 23 H 200/98 H 100 03/31/19 16:00 03/31/19 16:00 03/31/19 16:00 03/31/19 16:00 03/31/19 16:00 Intake & Output 03/30/19 03/31/19 04/01/19 06:59 06:59 06:59 Intake Total 150 200 50 Output Total 371 970 300 Balance -221 -770 -250 Weight 139.9 kg 142.5 kg General appearance: PRESENT: no acute distress, cooperative Eye exam: PRESENT: EOMI, PERRLA. ABSENT: scleral icterus Ear exam: PRESENT: normal external ear exam Mouth exam: PRESENT: moist, neck supple Neck exam: ABSENT: lymphadenopathy, meningismus, tenderness, thyromegaly, tracheal deviation Respiratory exam: PRESENT: clear to auscultation raúl, decreased breath sounds. ABSENT: crackles Cardiovascular exam: PRESENT: +S1, +S2 GI/Abdominal exam: PRESENT: normal bowel sounds, soft. ABSENT: organomegaly, t enderness Extremities exam: PRESENT: pedal edema Neurological exam: PRESENT: alert, awake, oriented to person, oriented to place Psychiatric exam: PRESENT: appropriate affect Skin exam: ABSENT: cyanosis, intact, mottled, rash Results Laboratory Results: 03/31/19 04:07 03/31/19 04:07 03/31/19 03/31/19 04:07 04:07 WBC 4.8 RBC 3.84 Hgb 8.7 L Hct 28.4 L MCV 74 L MCH 22.7 L MCHC 30.6 L RDW 18.5 H Plt Count 301 Seg Neutrophils % Not Reportable Sodium 139.1 Potassium 4.2 Chloride 111 H Carbon Dioxide 21 L Anion Gap 7 BUN 43 H Creatinine 3.20 H Est GFR ( Amer) 19 L Glucose 92 Calcium 8.1 L Total Bilirubin 0.3 AST 23 Alkaline Phosphatase 70 Total Protein 5.9 L Albumin 2.6 L 03/27/19 18:43 Clean Catch Midstream Urine Culture - Final Urogenital Elaina 03/27/19 03/27/19 03/27/19 17:16 17:16 22:59 Creatine Kinase 241 H CK-MB (CK-2) 2.48 Troponin I 0.262 0.214 NT-Pro-B Natriuret Pep 40148 H 23521 H 03/28/19 03/28/19 03/28/19 05:36 05:36 11:05 Creatine Kinase 142 H 117 CK-MB (CK-2) 1.91 Troponin I 0.190 NT-Pro-B Natriuret Pep 03/28/19 03/29/19 03/29/19 11:05 09:59 09:59 Creatine Kinase 178 H CK-MB (CK-2) 1.66 1.95 Troponin I 0.167 0.118 NT-Pro-B Natriuret Pep 9940 H Impressions: Head MRI 03/29/19 00:00 IMPRESSION: SMALL FOCAL AREAS OF RESTRICTED DIFFUSION IN BOTH CEREBRAL HEMISPHERES DESCRIBED. GIVEN THE DIFFUSE BILATERAL DISTRIBUTION, THESE COULD BE EMBOLIC PHENOMENON. EVIDENCE OF ACUTE STROKE: YES. NO SINGLE VASCULAR DISTRIBUTION. Chest X-Ray 03/29/19 09:30 IMPRESSION: CARDIAC ENLARGEMENT. VASCULAR CONGESTION. Head CT 03/29/19 09:40 IMPRESSION: NORMAL BRAIN CT WITHOUT CONTRAST. EVIDENCE OF ACUTE STROKE: NO. Assessment & Plan - Diagnosis (1) ALTA (acute kidney injury) Plan: Patient currently renally decompensated.Baseline creatinine is around 2-2.5. Looks like she has currently peaked at 3.3. However if she is now recovered from a neurological deficits and is eating and the intake is now much better. See how she responds to all of this. Do not see any evidences to indicate any other cause other than possible dehydration. Monitor closely. No indications for renal replacements. (2) Acute CVA (cerebrovascular accident) Is this a current diagnosis for this admission?: Yes Plan: As per motor equipment commanding officer. (3) Altered mental status Is this a current diagnosis for this admission?: Yes Plan: Much improved currently. (4) Hypertension Qualifiers: Hypertension type: unspecified Qualified Code(s): I10 - Essential (primary) hypertension Plan: Uncontrolled. Monitor. Titrate medications. (5) Hypertensive emergency Is this a current diagnosis for this admission?: Yes Plan: Improving on current management. (6) Hypotension Is this a current diagnosis for this admission?: Yes Plan: Currently resolved (7) Chronic kidney disease, stage 3 Is this a current diagnosis for this admission?: Yes Plan: His creatinine of around 2. Most likely secondary from hypertensive kidney disease. (8) Migraine Qualifiers: Migraine type: without aura Status migrainosus presence: with status migrainosus Intractability: intractable Qualified Code(s): G43.011 - Migraine without aura, intractable, with status migrainosus Plan: As per motor equipment commanding officer.
--- NOTE | 2019-03-31 18:24 | Progress Note ---
Provider Note Provider Note: CARDIOLOGY PROGRESS NOTE by Dr. Melani Lentz on 03/31/2019. OBJECTIVE: The patient's blood pressure again is climbing back up. She denies chest pain or discomfort. There is no shortness of breath. There is no PND orthopnea. There is no focal deficits. She is more awake and alert. She does not remember the events that led to her hypotension 2 nights ago. She complains of a mild headache which is part of her migraine. There is no seizure activity noted. PHYSICAL EXAMINATION: The patient morbidly obese. At present in no acute distress. Selected Entries 03/31/19 03/31/19 03/31/19 12:00 12:26 13:39 Core 99.1 F Temperature Heart Rate ( 83 Monitors) Respiratory 19 20 Rate Blood Pressure 158/98 H Blood Pressure 118 Mean O2 Sat by Pulse 100 96 92 Oximetry Oxygen Delivery Room Air Method ( includes room air) HEAD: Is atraumatic normocephalic. EYES: Pupils are equal round regular reactive to light accommodation. Extraocular movements are normal. There is no conjunctival pallor. There is no scleral icterus. EARS: Tympanic membranes are intact. External auditory canals are clear. NOSE: There is no deviated nasal septum. There is no inflammation nasal mucous membrane. MOUTH: Mucous membranes of the mouth are moist. Tongue is moist. THROAT: There is no redness of the oropharynx there is no exudates. SKIN: There is no skin rashes there is no petechia or ecchymosis. NECK: Is supple. There is no JVD. Carotids are equal there is no bruit. Face: There is seems to be a mild left facial droop but the patient is able to wrinkle eyebrows. And raise both eyebrows NECK: Is supple. There is no JVD. Carotids are equal there is no bruits. THERE is no accessory muscle respiration use. LUNGS: Is clear to auscultation percussion. HEART: S1-S2 is heard. There is an S4 gallop present. There is no S3 gallop. There is systolic murmur left sternal border and the apex there is no rub. ABDOMEN: Soft. Obese. Nontender. There is no) megaly. Bowel sounds well heard. EXTREMITIES femorals are deep. There is no femoral bruits. LEG pulses are diminished. There is trace to mild pedal edema bilaterally. There is no DVT or cellulitis. There is no cyanosis or clubbing. LOCK ASSEMBLER: The patient is conscious very drowsy but seems to be oriented x3. She is able to move all 4 extremities. PSYCHIATRIC: The patient does not appear to be anxious or agitated. IMPRESSION/RECOMMENDATION: 1. Altered mental status. Probable CVA suspected. CT T scan of the head is negative for CVA. Await MRI. Note that the patient's blood gases did not show hypercapnia. Hence this is most likely is not secondary to a event related to her sleep apnea. I do not believe that this is a CVA in spite of the MRI findings. The patient's altered mental status most likely secondary to hypotension in a patient who is usually used to a higher blood pressure levels. .. Elevated troponin I: Secondary to supply demand mismatch due to uncontrolled hypertension on admission. No definite evidence of non-ST relation NM. 3. Hypertension: Uncontrolled on admission. At present her blood pressure is trending up. Would cautiously and slowly start patient's antihypertensives. 4. Chronic kidney disease stage III: Avoid nephrotoxic drugs. 5. Obstructive sleep apnea: Continue CPAP. 6. Of asymptomatic nonsustained V. tach. Patient is is at a low risk for sudden due to the fact she her LV ejection fraction is normal, and the patient has no prior history of sudden . 8. Morbid obesity. Patient is reviewed. Medical regimen and management plan discussed with attending physician on the case. Medical decision making is of moderate complexity. 40 minutes spent as patient more than 50% time spent in direct patient care. Will follow.
[2019-03-31] MEDS ORDERED: PROMETHAZINE HCL 25 MG TABLET PO ONE (21:00)
[2019-03-31] MEDS: ATORVASTATIN CALCIUM 40 MG TABLET PO SCH (21:09)
[2019-04-01 04:10] LABS: ABSOLUTE BASOPHILS # (AUTO) 0.1 10^3/uL (0.0-0.2); ABSOLUTE LYMPHOCYTES (AUTO) 0.9 10^3/uL (0.5-4.7); ABSOLUTE MONOCYTES (AUTO) 0.7 10^3/uL (0.1-1.4); ABSOLUTE NEUT (AUTO) 4.2 10^3/uL (1.7-8.2); BASOPHILS % (AUTO) 1.1 % (0-2); EOSINOPHILS % (AUTO) 0.7 % (0-6); HEMATOCRIT 30.8 % (36.0-47.0); HEMOGLOBIN 9.4 g/dL (12.0-15.5); LYMPHOCYTES % (AUTO) 15.6 % (13-45); MEAN CORPUSCULAR HEMOGLOBIN 22.7 pg (27.0-33.4); MEAN CORPUSCULAR HGB CONC 30.5 g/dL (32.0-36.0); MEAN CORPUSCULAR VOLUME 74 fl (80-97); MONOCYTES % (AUTO) 11.8 % (3-13); PLATELET COUNT 310 10^3/uL (150-450); RED BLOOD COUNT 4.15 10^6/uL (3.72-5.28); RED CELL DISTRIBUTION WIDTH 18.7 % (11.5-14.0); SEGMENTED NEUTROPHILS % (AUTO) 70.8 % (42-78); TOTAL CELLS COUNTED % (AUTO) 100 %; WHITE BLOOD COUNT 5.9 10^3/uL (4.0-10.5)
[2019-04-01 04:31] LABS: ALBUMIN 2.9 g/dL (3.5-5.0); ALKALINE PHOSPHATASE 70 U/L (38-126); ANION GAP 10 (5-19); ASPARTATE AMINO TRANSFERASE 24 U/L (14-36); BILIRUBIN,DIRECT 0.4 mg/dL (0.0-0.4); BILIRUBIN,TOTAL 0.6 mg/dL (0.2-1.3); BLOOD UREA NITROGEN 40 mg/dL (7-20); CALCIUM 8.6 mg/dL (8.4-10.2); CARBON DIOXIDE 19 mmol/L (22-30); CHLORIDE 112 mmol/L (98-107); GLUCOSE 96 mg/dL (75-110); POTASSIUM 4.2 mmol/L (3.6-5.0); TOTAL PROTEIN 6.7 g/dL (6.3-8.2)
[2019-04-01] MEDS: HYDRALAZINE HCL 50 MG TABLET PO SCH ×3 (05:49→21:09)
[2019-04-01] MEDS: CLINDAMYCIN 300 MG/D5W RTU 300 MG/50 ML RTUPB IV SCH ×3 (05:49→21:09)
[2019-04-01] MEDS ORDERED: NIFEDIPINE 30 MG TAB.ER.24 PO ONE (08:45)
[2019-04-01] MEDS ORDERED: CETIRIZINE 10 MG TABLET PO ONE (08:45)
[2019-04-01] MEDS ORDERED: PANTOPRAZOLE SODIUM 40 MG TABLET.DR PO ONE (08:45)
[2019-04-01] MEDS ORDERED: METOPROLOL SUCCINATE 50 MG TAB.SR.24H PO ONE (08:45)
[2019-04-01] MEDS: ALBUTEROL SULFATE HFA (90 MCG/PUFF) 200 PUFF/8.5 GM MDI IH SCH ×4 (09:09→21:09)
[2019-04-01] MEDS: FLUTICASONE/VILANTEROL 200-25 MCG/DOSE IH SCH (09:09)
[2019-04-01] MEDS: PANTOPRAZOLE SODIUM 40 MG TABLET.DR PO SCH ×2 (09:10→17:51)
[2019-04-01] MEDS: METOPROLOL SUCCINATE 50 MG TAB.SR.24H PO SCH ×2 (09:58→17:51)
[2019-04-01] MEDS: CETIRIZINE 10 MG TABLET PO SCH (09:58)
[2019-04-01] MEDS: ONDANSETRON HCL INJ/PF 4 MG/2 ML SDV IV PRN ×2 (14:46→19:51)
--- NOTE | 2019-04-01 16:48 | Progress Note ---
Provider Note Provider Note: CARDIOLOGY PROGRESS NOTE by Dr. Melani Drew on 04/01/2019. SUBJECTIVE: The patient denies any chest pain or discomfort. She denies any shortness of breath. There is no PND orthopnea. There is trace pedal edema bilaterally. There is no recurrence of nonsustained ventricular tachycardia or sustained ventricular tachycardia. There is no atrial arrhythmias seen. The patient is awake alert oriented x3 with no focal deficits. She is on multiple medical blood pressure medications and her blood pressure seems to be fairly controlled now but early in the morning was uncontrolled. PHYSICAL EXAMINATION: The patient is morbidly obese. At present in no acute distress. Selected Entries 04/01/19 15:16 Temperature 98.9 F Temperature Oral Source Pulse Rate 65 Respiratory 20 Rate Blood Pressure 155/86 H Blood Pressure 109 Mean BP Location Left Arm BP Position Supine O2 Sat by Pulse 94 Oximetry Oxygen Delivery Room Air Method HEAD: Is atraumatic normocephalic. EYES: Pupils are equal round regular reactive to light accommodation. Extraocular movements are normal. There is no conjunctival pallor. There is no scleral icterus. EARS: Tympanic membranes are intact. External auditory canals are clear. NOSE: There is no deviated nasal septum. There is no inflammation nasal mucous membrane. MOUTH: Mucous membranes of the mouth are moist. Tongue is moist. THROAT: There is no redness of the oropharynx there is no exudates. SKIN: There is no skin rashes there is no petechia or ecchymosis. NECK: Is supple. There is no JVD. Carotids are equal there is no bruit. Face: There is seems to be a mild left facial droop but the patient is able to wrinkle eyebrows. And raise both eyebrows NECK: Is supple. There is no JVD. Carotids are equal there is no bruits. THERE is no accessory muscle respiration use. LUNGS: Is clear to auscultation percussion. HEART: S1-S2 is heard. There is an S4 gallop present. There is no S3 gallop. There is systolic murmur left sternal border and the apex there is no rub. ABDOMEN: Soft. Obese. Nontender. There is no) megaly. Bowel sounds well heard. EXTREMITIES femorals are deep. There is no femoral bruits. LEG pulses are diminished. There is trace to mild pedal edema bilaterally. There is no DVT or cellulitis. There is no cyanosis or clubbing. ICU CLERK: The patient is conscious very drowsy but seems to be oriented x3. She is able to move all 4 extremities. PSYCHIATRIC: The patient does not appear to be anxious or agitated. Labs- All tests 24 hr 04/01/19 04/01/19 03:46 03:46 WBC 5.9 RBC 4.15 Hgb 9.4 L Hct 30.8 L MCV 74 L MCH 22.7 L MCHC 30.5 L RDW 18.7 H Plt Count 310 Lymph % (Auto) 15.6 [place] % (Auto) 11.8 Eos % (Auto) 0.7 Baso % (Auto) 1.1 Absolute Neuts (auto) 4.2 Absolute Lymphs (auto) 0.9 Absolute Monos (auto) 0.7 Absolute Eos (auto) 0.0 Absolute Basos (auto) 0.1 Seg Neutrophils % 70.8 Sodium 141.3 Potassium 4.2 Chloride 112 H Carbon Dioxide 19 L Anion Gap 10 BUN 40 H Creatinine 2.90 H Est GFR ( Amer) 21 L Est GFR (MDRD) Non-Af 17 L Glucose 96 Calcium 8.6 Total Bilirubin 0.6 Direct Bilirubin 0.4 Neonat Total Bilirubin Not Reportable Neonat Direct Bilirubin Not Reportable Neonat Indirect Bili Not Reportable AST 24 ALT 15 Alkaline Phosphatase 70 Total Protein 6.7 Albumin 2.9 L Chest X-Ray 03/27/19 15:00 IMPRESSION: Cardiomegaly without pulmonary edema. Head MRI 03/29/19 00:00 IMPRESSION: SMALL FOCAL AREAS OF RESTRICTED DIFFUSION IN BOTH CEREBRAL HEMISPHERES DESCRIBED. GIVEN THE DIFFUSE BILATERAL DISTRIBUTION, THESE COULD BE EMBOLIC PHENOMENON. EVIDENCE OF ACUTE STROKE: YES. NO SINGLE VASCULAR DISTRIBUTION. Chest X-Ray 03/29/19 09:30 IMPRESSION: CARDIAC ENLARGEMENT. VASCULAR CONGESTION. Head CT 03/29/19 09:40 IMPRESSION: NORMAL BRAIN CT WITHOUT CONTRAST. EVIDENCE OF ACUTE STROKE: NO. IMPRESSION/RECOMMENDATION: 1. Altered mental status. Probable CVA suspected. CT T scan of the head is negative for CVA. Await MRI. Note that the patient's blood gases did not show hypercapnia. Hence this is most likely is not secondary to a event related to her sleep apnea. I do not believe that this is a CVA in spite of the MRI findings. The patient's altered mental status most likely secondary to hypotension in a patient who is usually used to a higher blood pressure levels. This is resolved. .. Elevated troponin I: Secondary to supply demand mismatch due to uncontrolled hypertension on admission. No definite evidence of non-ST relation [place]. 3. Hypertension: Uncontrolled on admission. At present her blood pressure is up and down. Would cautiously and slowly start patient's antihypertensives. 4. Chronic kidney disease stage III: Avoid nephrotoxic drugs. 5. Obstructive sleep apnea: Continue CPAP. 6. Of asymptomatic nonsustained V. tach. Patient is is at a low risk for sudden due to the fact she her LV ejection fraction is normal, and the patient has no prior history of sudden . 8. Morbid obesity. Medications reviewed. Medical regimen and management plan discussed with attending physician and the bakery team leader. Medical decision making is of mod erate complexity. 40 minutes spent on the patient with more than 50% of time spent in direct patient care. Will follow.
[2019-04-01] MEDS: MONTELUKAST SODIUM 10 MG TABLET PO SCH (17:51)
[2019-04-01] MEDS: ACETAMINOPHEN 325 MG TABLET PO PRN (19:51)
[2019-04-01] MEDS: ATORVASTATIN CALCIUM 40 MG TABLET PO SCH (21:09)
--- NOTE | 2019-04-01 23:18 | PDOC PROGRESS REPORT ---
Subjective Progress Note for:: 04/01/19 Subjective:: Patient was transferred out of ICU today she had episode of low blood pressure that resulted in hypoperfusion of the brain with altered mental status transferred to ICU MRI shows some mild stroke syndrome Reason For Visit: EMERGENCY HYPERTENSION,CELLULITIS OF THE LOWER Physical Exam Vital Signs: Temp Pulse Resp BP Pulse Ox 99.6 F 66 16 169/95 H 95 04/01/19 19:19 04/01/19 19:19 04/01/19 19:19 04/01/19 19:19 04/01/19 19:19 Intake & Output 03/31/19 04/01/19 04/02/19 06:59 06:59 06:59 Intake Total 200 350 573 Output Total 970 420 Balance -770 -70 573 Weight 142.5 kg 138.3 kg General appearance: PRESENT: no acute distress Eye exam: PRESENT: PERRLA Cardiovascular exam: PRESENT: +S1, +S2 Neurological exam: PRESENT: alert Results Laboratory Results: 04/01/19 03:46 04/01/19 03:46 04/01/19 04/01/19 03:46 03:46 WBC 5.9 RBC 4.15 Hgb 9.4 L Hct 30.8 L MCV 74 L MCH 22.7 L MCHC 30.5 L RDW 18.7 H Plt Count 310 Seg Neutrophils % 70.8 Sodium 141.3 Potassium 4.2 Chloride 112 H Carbon Dioxide 19 L Anion Gap 10 BUN 40 H Creatinine 2.90 H Est GFR ( Amer) 21 L Glucose 96 Calcium 8.6 Total Bilirubin 0.6 AST 24 Alkaline Phosphatase 70 Total Protein 6.7 Albumin 2.9 L 03/27/19 21:03 Blood Blood Culture - Final NO GROWTH IN 5 DAYS 03/27/19 17:16 Blood Blood Culture - Final NO GROWTH IN 5 DAYS 03/27/19 03/27/19 03/27/19 17:16 17:16 22:59 Creatine Kinase 241 H CK-MB (CK-2) 2.48 Troponin I 0.262 0.214 NT-Pro-B Natriuret Pep 51030 H 44976 H 03/28/19 03/28/19 03/28/19 05:36 05:36 11:05 Creatine Kinase 142 H 117 CK-MB (CK-2) 1.91 Troponin I 0.190 NT-Pro-B Natriuret Pep 03/28/19 03/29/19 03/29/19 11:05 09:59 09:59 Creatine Kinase 178 H CK-MB (CK-2) 1.66 1.95 Troponin I 0.167 0.118 NT-Pro-B Natriuret Pep 9940 H Impressions: Head MRI 03/29/19 00:00 IMPRESSION: SMALL FOCAL AREAS OF RESTRICTED DIFFUSION IN BOTH CEREBRAL HEMISPHERES DESCRIBED. GIVEN THE DIFFUSE BILATERAL DISTRIBUTION, THESE COULD BE EMBOLIC PHENOMENON. EVIDENCE OF ACUTE STROKE: YES. NO SINGLE VASCULAR DISTRIBUTION. Chest X-Ray 03/29/19 09:30 IMPRESSION: CARDIAC ENLARGEMENT. VASCULAR CONGESTION. Head CT 03/29/19 09:40 IMPRESSION: NORMAL BRAIN CT WITHOUT CONTRAST. EVIDENCE OF ACUTE STROKE: NO. Assessment & Plan - Diagnosis (1) Hypertensive emergency Is this a current diagnosis for this admission?: Yes (2) Nephrotic syndrome Is this a current diagnosis for this admission?: Yes (3) Cellulitis of leg Qualifiers: Laterality: unspecified laterality Qualified Code(s): L03.119 - Cellulitis of unspecified part of limb Is this a current diagnosis for this admission?: Yes (4) Elevated troponin Is this a current diagnosis for this admission?: Yes (5) Chronic kidney disease, stage 3 Is this a current diagnosis for this admission?: Yes - Time Time Spent with patient: 35 or more minutes Level of Care: IMCU
[2019-04-02] MEDS: HYDRALAZINE HCL 50 MG TABLET PO SCH ×3 (06:03→21:15)
[2019-04-02] MEDS: ACETAMINOPHEN 325 MG TABLET PO PRN (06:03)
[2019-04-02] MEDS: CLINDAMYCIN 300 MG/D5W RTU 300 MG/50 ML RTUPB IV SCH ×3 (06:03→21:15)
[2019-04-02 06:50] LABS: ALBUMIN 3.2 g/dL (3.5-5.0); ALKALINE PHOSPHATASE 82 U/L (38-126); ANION GAP 13 (5-19); ASPARTATE AMINO TRANSFERASE 25 U/L (14-36); BILIRUBIN,DIRECT 0.4 mg/dL (0.0-0.4); BILIRUBIN,TOTAL 0.5 mg/dL (0.2-1.3); BLOOD UREA NITROGEN 34 mg/dL (7-20); CARBON DIOXIDE 18 mmol/L (22-30); CHLORIDE 110 mmol/L (98-107); CHOLESTEROL 120.62 mg/dL (0-200); GLUCOSE 100 mg/dL (75-110); POTASSIUM 4.2 mmol/L (3.6-5.0); TOTAL PROTEIN 7.2 g/dL (6.3-8.2); TRIGLYCERIDES 126 mg/dL (<150)
[2019-04-02 07:01] LABS: DIRECT LDL 61 mg/dL (<100)
[2019-04-02] MEDS: METOPROLOL SUCCINATE 50 MG TAB.SR.24H PO SCH ×2 (09:51→17:12)
[2019-04-02] MEDS: ONDANSETRON HCL INJ/PF 4 MG/2 ML SDV IV PRN (09:51)
[2019-04-02] MEDS: CETIRIZINE 10 MG TABLET PO SCH (09:52)
[2019-04-02] MEDS: FLUTICASONE/VILANTEROL 200-25 MCG/DOSE IH SCH (09:52)
[2019-04-02] MEDS: PANTOPRAZOLE SODIUM 40 MG TABLET.DR PO SCH ×2 (09:52→17:12)
[2019-04-02] MEDS: ALBUTEROL SULFATE HFA (90 MCG/PUFF) 200 PUFF/8.5 GM MDI IH SCH ×4 (09:52→21:15)
[2019-04-02] MEDS: MONTELUKAST SODIUM 10 MG TABLET PO SCH (17:12)
--- NOTE | 2019-04-02 19:45 | PDOC PROGRESS REPORT ---
Subjective Progress Note for:: 04/02/19 Subjective:: Patient seen by the bedside, the blood pressure is severely elevated Reason For Visit: EMERGENCY HYPERTENSION,CELLULITIS OF THE LOWER Physical Exam Vital Signs: Temp Pulse Resp BP Pulse Ox 99.2 F 53 L 20 197/106 H 93 04/02/19 15:43 04/02/19 15:43 04/02/19 15:43 04/02/19 15:43 04/02/19 15:43 Intake & Output 04/01/19 04/02/19 04/03/19 06:59 06:59 06:59 Intake Total 350 1473 820 Output Total 420 Balance -70 1473 820 Weight 138.3 kg 140.6 kg General appearance: PRESENT: no acute distress Eye exam: PRESENT: PERRLA Respiratory exam: PRESENT: clear to auscultation raúl Cardiovascular exam: PRESENT: +S1, +S2 GI/Abdominal exam: PRESENT: soft Results Laboratory Results: 04/01/19 03:46 04/02/19 05:54 04/02/19 05:54 Sodium 140.9 Potassium 4.2 Chloride 110 H Carbon Dioxide 18 L Anion Gap 13 BUN 34 H Creatinine 2.60 H Est GFR ( Amer) 24 L Glucose 100 Calcium 9.0 Total Bilirubin 0.5 AST 25 Alkaline Phosphatase 82 Total Protein 7.2 Albumin 3.2 L Triglycerides 126 Cholesterol 120.62 LDL Cholesterol Direct 61 VLDL Cholesterol 25.0 HDL Cholesterol 36 L 03/27/19 21:03 Blood Blood Culture - Final NO GROWTH IN 5 DAYS 03/27/19 17:16 Blood Blood Culture - Final NO GROWTH IN 5 DAYS 03/27/19 03/27/19 03/27/19 17:16 17:16 22:59 Creatine Kinase 241 H CK-MB (CK-2) 2.48 Troponin I 0.262 0.214 NT-Pro-B Natriuret Pep 17385 H 79820 H 03/28/19 03/28/19 03/28/19 05:36 05:36 11:05 Creatine Kinase 142 H 117 CK-MB (CK-2) 1.91 Troponin I 0.190 NT-Pro-B Natriuret Pep 03/28/19 03/29/19 03/29/19 11:05 09:59 09:59 Creatine Kinase 178 H CK-MB (CK-2) 1.66 1.95 Troponin I 0.167 0.118 NT-Pro-B Natriuret Pep 9940 H Impressions: Head MRI 03/29/19 00:00 IMPRESSION: SMALL FOCAL AREAS OF RESTRICTED DIFFUSION IN BOTH CEREBRAL HEMISPHERES DESCRIBED. GIVEN THE DIFFUSE BILATERAL DISTRIBUTION, THESE COULD BE EMBOLIC PHENOMENON. EVIDENCE OF ACUTE STROKE: YES. NO SINGLE VASCULAR DISTRIBUTION. Chest X-Ray 03/29/19 09:30 IMPRESSION: CARDIAC ENLARGEMENT. VASCULAR CONGESTION. Head CT 03/29/19 09:40 IMPRESSION: NORMAL BRAIN CT WITHOUT CONTRAST. EVIDENCE OF ACUTE STROKE: NO. Assessment & Plan - Diagnosis (1) Hypertensive emergency Is this a current diagnosis for this admission?: Yes (2) Nephrotic syndrome Is this a current diagnosis for this admission?: Yes Plan: Start valsartan (3) Cellulitis of leg Qualifiers: Laterality: unspecified laterality Qualified Code(s): L03.119 - Cellulitis of unspecified part of limb Is this a current diagnosis for this admission?: Yes (4) Elevated troponin Is this a current diagnosis for this admission?: Yes (5) Chronic kidney disease, stage 3 Is this a current diagnosis for this admission?: Yes - Time Time Spent with patient: 15-24 minutes
[2019-04-02] MEDS: VALSARTAN 160 MG TABLET PO SCH (21:15)
[2019-04-02] MEDS: ATORVASTATIN CALCIUM 40 MG TABLET PO SCH (21:15)
[2019-04-03] MEDS: CLINDAMYCIN 300 MG/D5W RTU 300 MG/50 ML RTUPB IV SCH ×3 (05:39→21:11)
[2019-04-03] MEDS: HYDRALAZINE HCL 50 MG TABLET PO SCH ×3 (05:39→21:11)
[2019-04-03] MEDS: ACETAMINOPHEN 325 MG TABLET PO PRN (08:32)
[2019-04-03] MEDS: FLUTICASONE/VILANTEROL 200-25 MCG/DOSE IH SCH (09:15)
[2019-04-03] MEDS: ALBUTEROL SULFATE HFA (90 MCG/PUFF) 200 PUFF/8.5 GM MDI IH SCH ×4 (09:15→21:15)
[2019-04-03] MEDS: PANTOPRAZOLE SODIUM 40 MG TABLET.DR PO SCH ×2 (09:16→17:23)
[2019-04-03] MEDS: METOPROLOL SUCCINATE 50 MG TAB.SR.24H PO SCH ×2 (09:16→17:23)
[2019-04-03] MEDS: CETIRIZINE 10 MG TABLET PO SCH (09:16)
[2019-04-03] MEDS: VALSARTAN 160 MG TABLET PO SCH (09:16)
[2019-04-03] MEDS: ONDANSETRON HCL INJ/PF 4 MG/2 ML SDV IV PRN (14:52)
[2019-04-03] MEDS: MONTELUKAST SODIUM 10 MG TABLET PO SCH (17:23)
--- NOTE | 2019-04-03 18:46 | Progress Note ---
Provider Note Provider Note: CARDIOLOGY PROGRESS NOTE by Dr. Melani Lentz on 04/03/2019. SUBJECTIVE:. The patient is awake and alert. There is no further evidence of altered mental status. She denies any chest pain discomfort. There is no shortness of breath. Her blood pressure is still very much uncontrolled. She is on multiple medications. We will increase the patient's hydralazine 200 mg p.o. every 6 hours. She. She has no PND orthopnea or leg edema. There is no arrhythmia seen on the monitor. PHYSICAL EXAMINATION: The patient morbidly obese. In no acute distress. Selected Entries 04/02/19 04/02/19 07:37 15:43 Temperature 97.8 F 99.2 F Temperature Oral Oral Source Pulse Rate 65 53 L Respiratory 20 20 Rate Blood Pressure 163/78 H 197/106 H Blood Pressure 106 136 Mean BP Location Right Arm Right Arm BP Position Supine Supine O2 Sat by Pulse 97 93 Oximetry Oxygen Delivery Room Air Room Air Method HEAD: Is atraumatic normocephalic. EYES: Pupils are equal round regular reactive to light accommodation. Extraocular movements are normal. There is no conjunctival pallor. There is no scleral icterus. EARS: Tympanic membranes are intact. External auditory canals are clear. NOSE: There is no deviated nasal septum. There is no inflammation nasal mucous membrane. MOUTH: Mucous membranes of the mouth are moist. Tongue is moist. THROAT: There is no redness of the oropharynx there is no exudates. SKIN: There is no skin rashes there is no petechia or ecchymosis. NECK: Is supple. There is no JVD. Carotids are equal there is no bruit. Face: There is seems to be a mild left facial droop but the patient is able to wrinkle eyebrows. And raise both eyebrows NECK: Is supple. There is no JVD. Carotids are equal there is no bruits. THERE is no accessory muscle respiration use. LUNGS: Is clear to auscultation percussion. HEART: S1-S2 is heard. There is an S4 gallop present. There is no S3 gallop. There is systolic murmur left sternal border and the apex there is no rub. ABDOMEN: Soft. Obese. Nontender. There is no) megaly. Bowel sounds well heard. EXTREMITIES femorals are deep. There is no femoral bruits. LEG pulses are diminished. There is trace to mild pedal edema bilaterally. There is no DVT or cellulitis. There is no cyanosis or clubbing. FINISHER OPERATOR: The patient is conscious very drowsy but seems to be oriented x3. She is able to move all 4 extremities. PSYCHIATRIC: The patient does not appear to be anxious or agitate d. Chest X-Ray 03/27/19 15:00 IMPRESSION: Cardiomegaly without pulmonary edema. Head MRI 03/29/19 00:00 IMPRESSION: SMALL FOCAL AREAS OF RESTRICTED DIFFUSION IN BOTH CEREBRAL HEMISPHERES DESCRIBED. GIVEN THE DIFFUSE BILATERAL DISTRIBUTION, THESE COULD BE EMBOLIC PHENOMENON. EVIDENCE OF ACUTE STROKE: YES. NO SINGLE VASCULAR DISTRIBUTION. Chest X-Ray 03/29/19 09:30 IMPRESSION: CARDIAC ENLARGEMENT. VASCULAR CONGESTION. Head CT 03/29/19 09:40 IMPRESSION: NORMAL BRAIN CT WITHOUT CONTRAST. EVIDENCE OF ACUTE STROKE: NO. IMPRESSION/RECOMMENDATION: 1. Altered mental status. Probable CVA suspected. CT T scan of the head is negative for CVA. do not believe that this is a CVA in spite of the MRI findings. The patient's altered mental status most likely secondary to hypotension in a patient who is usually used to a higher blood pressure levels. This is resolved. 2.. Elevated troponin I: Secondary to supply demand mismatch due to uncontrolled hypertension on admission. No definite evidence of non-ST relation [place]. 3. Hypertension: Uncontrolled . At present her blood pressure is up and down. We can increase the patient's hydralazine to 10 mg p.o. every 6 hours. 4. Chronic kidney disease stage III: Avoid nephrotoxic drugs. 5. Obstructive sleep apnea: Continue CPAP. 6. Of asymptomatic nonsustained V. tach. Patient is is at a low risk for sudden due to the fact she her LV ejection fraction is normal, and the patient has no prior history of sudden . 8. Morbid obesity. Medications reviewed. Medical regimen and management plan discussed with attending physician and the blast furnace keeper. Medical decision making is of high complexity, due to the need for adjustments in antihypertensives. 40 minutes spent on the patient with more than 50% of time spent in direct patient care. Will follow.
[2019-04-03] MEDS: ATORVASTATIN CALCIUM 40 MG TABLET PO SCH (21:11)
--- NOTE | 2019-04-03 22:29 | PDOC PROGRESS REPORT ---
Subjective Progress Note for:: 04/03/19 Subjective:: The blood pressure remained difficult to control Reason For Visit: EMERGENCY HYPERTENSION,CELLULITIS OF THE LOWER Physical Exam Vital Signs: Temp Pulse Resp BP Pulse Ox 98.1 F 140 H 16 178/81 H 97 04/03/19 20:11 04/03/19 20:11 04/03/19 20:11 04/03/19 20:11 04/03/19 20:11 Intake & Output 04/02/19 04/03/19 04/04/19 06:59 06:59 06:59 Intake Total 1473 1520 1318 Balance 1473 1520 1318 Weight 140.6 kg 140.2 kg General appearance: PRESENT: no acute distress Eye exam: PRESENT: PERRLA Respiratory exam: PRESENT: clear to auscultation raúl Cardiovascular exam: PRESENT: +S1, +S2 GI/Abdominal exam: PRESENT: soft Neurological exam: PRESENT: alert Results Laboratory Results: 04/01/19 03:46 04/02/19 05:54 03/27/19 03/27/19 03/27/19 17:16 17:16 22:59 Creatine Kinase 241 H CK-MB (CK-2) 2.48 Troponin I 0.262 0.214 NT-Pro-B Natriuret Pep 20246 H 74944 H 03/28/19 03/28/19 03/28/19 05:36 05:36 11:05 Creatine Kinase 142 H 117 CK-MB (CK-2) 1.91 Troponin I 0.190 NT-Pro-B Natriuret Pep 03/28/19 03/29/19 03/29/19 11:05 09:59 09:59 Creatine Kinase 178 H CK-MB (CK-2) 1.66 1.95 Troponin I 0.167 0.118 NT-Pro-B Natriuret Pep 9940 H Impressions: Head MRI 03/29/19 00:00 IMPRESSION: SMALL FOCAL AREAS OF RESTRICTED DIFFUSION IN BOTH CEREBRAL HYUN SPHERES DESCRIBED. GIVEN THE DIFFUSE BILATERAL DISTRIBUTION, THESE COULD BE EMBOLIC PHENOMENON. EVIDENCE OF ACUTE STROKE: YES. NO SINGLE VASCULAR DISTRIBUTION. Chest X-Ray 03/29/19 09:30 IMPRESSION: CARDIAC ENLARGEMENT. VASCULAR CONGESTION. Head CT 03/29/19 09:40 IMPRESSION: NORMAL BRAIN CT WITHOUT CONTRAST. EVIDENCE OF ACUTE STROKE: NO. Assessment & Plan - Diagnosis (1) Hypertensive emergency Is this a current diagnosis for this admission?: Yes Plan: Diovan was added to the regimen (2) Nephrotic syndrome Is this a current diagnosis for this admission?: Yes (3) Cellulitis of leg Qualifiers: Laterality: unspecified laterality Qualified Code(s): L03.119 - Cellulitis of unspecified part of limb Is this a current diagnosis for this admission?: Yes (4) Elevated troponin Is this a current diagnosis for this admission?: Yes (5) Chronic kidney disease, stage 3 Is this a current diagnosis for this admission?: Yes - Time Time Spent with patient: Less than 15 minutes
[2019-04-04] MEDS: HYDRALAZINE HCL 50 MG TABLET PO SCH ×5 (00:48→22:59)
[2019-04-04] MEDS: METOPROLOL SUCCINATE 50 MG TAB.SR.24H PO SCH ×2 (10:03→17:42)
[2019-04-04] MEDS: ONDANSETRON HCL INJ/PF 4 MG/2 ML SDV IV PRN ×3 (10:03→22:58)
[2019-04-04] MEDS: VALSARTAN 160 MG TABLET PO SCH (10:03)
[2019-04-04] MEDS: ALBUTEROL SULFATE HFA (90 MCG/PUFF) 200 PUFF/8.5 GM MDI IH SCH ×4 (10:04→22:55)
[2019-04-04] MEDS: PANTOPRAZOLE SODIUM 40 MG TABLET.DR PO SCH ×2 (10:04→17:41)
[2019-04-04] MEDS: CETIRIZINE 10 MG TABLET PO SCH (10:04)
[2019-04-04] MEDS: ACETAMINOPHEN 325 MG TABLET PO PRN ×3 (10:04→22:58)
[2019-04-04] MEDS: FLUTICASONE/VILANTEROL 200-25 MCG/DOSE IH SCH (10:04)
[2019-04-04] MEDS: MONTELUKAST SODIUM 10 MG TABLET PO SCH (17:42)
--- NOTE | 2019-04-04 22:37 | PDOC PROGRESS REPORT ---
Subjective Progress Note for:: 04/04/19 Subjective:: Patient seen by the bedside, the blood pressure control is improving hopefully discharge home in the morning Reason For Visit: EMERGENCY HYPERTENSION,CELLULITIS OF THE LOWER Physical Exam Vital Signs: Temp Pulse Resp BP Pulse Ox 98.4 F 60 19 199/100 H 100 04/04/19 19:52 04/04/19 19:52 04/04/19 19:52 04/04/19 19:52 04/04/19 19:52 Intake & Output 04/03/19 04/04/19 04/05/19 06:59 06:59 06:59 Intake Total 1520 1368 579 Balance 1520 1368 579 Weight 140.2 kg 140.6 kg General appearance: PRESENT: no acute distress Eye exam: PRESENT: PERRLA Respiratory exam: PRESENT: clear to auscultation raúl Cardiovascular exam: PRESENT: +S1 GI/Abdominal exam: PRESENT: soft Neurological exam: PRESENT: alert Results Laboratory Results: 04/01/19 03:46 04/02/19 05:54 03/27/19 03/27/19 03/27/19 17:16 17:16 22:59 Creatine Kinase 241 H CK-MB (CK-2) 2.48 Troponin I 0.262 0.214 NT-Pro-B Natriuret Pep 15625 H 53141 H 03/28/19 03/28/19 03/28/19 05:36 05:36 11:05 Creatine Kinase 142 H 117 CK-MB (CK-2) 1.91 Troponin I 0.190 NT-Pro-B Natriuret Pep 03/28/19 03/29/19 03/29/19 11:05 09:59 09:59 Creatine Kinase 178 H CK-MB (CK-2) 1.66 1.95 Troponin I 0.167 0.118 NT-Pro-B Natriuret Pep 9940 H Impressions: Head MRI 03/29/19 00:00 IMPRESSION: SMALL FOCAL AREAS OF RESTRICTED DIFFUSION IN BOTH CEREBRAL HEMISPHERES DESCRIBED. GIVEN THE DIFFUSE BILATERAL DISTRIBUTION, THESE COULD BE EMBOLIC PHENOMENON. EVIDENCE OF ACUTE STROKE: YES. NO SINGLE VASCULAR DISTRIBUTION. Chest X-Ray 03/29/19 09:30 IMPRESSION: CARDIAC ENLARGEMENT. VASCULAR CONGESTION. Head CT 03/29/19 09:40 IMPRESSION: NORMAL BRAIN CT WITHOUT CONTRAST. EVIDENCE OF ACUTE STROKE: NO. Assessment & Plan - Diagnosis (1) Hypertensive emergency Is this a current diagnosis for this admission?: Yes (2) Nephrotic syndrome Is this a current diagnosis for this admission?: Yes (3) Cellulitis of leg Qualifiers: Laterality: unspecified laterality Qualified Code(s): L03.119 - Cellulitis of unspecified part of limb Is this a current diagnosis for this admission?: Yes (4) Elevated troponin Is this a current diagnosis for this admission?: Yes (5) Chronic kidney disease, stage 3 Is this a current diagnosis for this admission?: Yes - Time Time Spent with patient: 35 or more minutes Level of Care: TELE
[2019-04-04] MEDS: ATORVASTATIN CALCIUM 40 MG TABLET PO SCH (22:55)
[2019-04-05] MEDS: HYDRALAZINE HCL 50 MG TABLET PO SCH ×3 (05:36→17:23)
[2019-04-05] MEDS: FLUTICASONE/VILANTEROL 200-25 MCG/DOSE IH SCH (10:01)
[2019-04-05] MEDS: PANTOPRAZOLE SODIUM 40 MG TABLET.DR PO SCH ×2 (10:02→17:23)
[2019-04-05] MEDS: VALSARTAN 160 MG TABLET PO SCH (10:02)
[2019-04-05] MEDS: CETIRIZINE 10 MG TABLET PO SCH (10:02)
[2019-04-05] MEDS: METOPROLOL SUCCINATE 50 MG TAB.SR.24H PO SCH (10:04)
[2019-04-05] MEDS: ACETAMINOPHEN 325 MG TABLET PO PRN (10:10)
[2019-04-05] MEDS: ONDANSETRON HCL INJ/PF 4 MG/2 ML SDV IV PRN (10:10)
[2019-04-05] MEDS: ALBUTEROL SULFATE HFA (90 MCG/PUFF) 200 PUFF/8.5 GM MDI IH SCH ×3 (10:11→17:24)
[2019-04-05] MEDS: CLONIDINE HCL 0.2 MG TABLET PO SCH ×2 (12:50→17:23)
[2019-04-05] MEDS: MONTELUKAST SODIUM 10 MG TABLET PO SCH (17:23)
[2019-04-05 17:34] VITALS: BP 146/75
--- NOTE | 2019-04-05 21:11 | PDOC DISCHARGE SUMMARY ---
Impression - Admit/DC Date/PCP Admission Date/Primary Care Provider: 03/27/19 22:11 VJ LEBLANC MD Discharge Date: 04/05/19 - Discharge Diagnosis (1) Hypertensive emergency Is this a current diagnosis for this admission?: Yes (2) Nephrotic syndrome Is this a current diagnosis for this admission?: Yes (3) Cellulitis of leg Is this a current diagnosis for this admission?: Yes (4) Elevated troponin Is this a current diagnosis for this admission?: Yes (5) Chronic kidney disease, stage 3 Is this a current diagnosis for this admission?: Yes - Additional Information Resuscitation Status: Full Code Discharge Diet: As Tolerated Discharge Activity: Activity As Tolerated Referrals: FLAVIA MOORE MD [COMMUNITY BASED STAFF] - 08/01/19 10:00 am Prescriptions: Atorvastatin Calcium [Lipitor 40 mg Tablet] 40 mg PO QHS #90 tablet Hydralazine HCl [Apresoline 50 mg Tablet] 100 mg PO Q6 #90 tablet Valsartan [Diovan 160 mg Tablet] 320 mg PO DAILY #90 tablet Nifedipine [Procardia XL 30 mg Tablet] 120 mg PO BID #180 tab.er.24 Home Medications: Omeprazole [Prilosec] 40 mg PO BID 10/29/14 Clonidine HCl [Catapres] 0.3 mg PO Q8 05/09/15 Montelukast Sodium 10 mg PO QPM 05/09/15 Oxycodone HCl [Oxycodone HCl 10 MG Tablet] 10 mg PO Q6HP PRN 06/25/18 Albuterol Sulfate [Proair HFA Inhalation Aerosol 8.5 gm MDI] 2 puff IH QID 03/28/19 Butorphanol Tartrate 1 spray NASL DAILYP PRN MDD 1 SRAY PER DAY 03/28/19 Cetirizine HCl [Zyrtec 10 mg Tablet] 10 mg PO DAILY 03/28/19 Cuvposa 5 ml PO TID 03/28/19 Doxazosin Mesylate [Cardura 4 mg Tablet] 8 mg PO BID 03/28/19 Fluticasone/Salmeterol [Advair 500-50 Diskus 14 Dose/Diskus] 1 puff IH BID 03/28/19 Promethazine HCl [Phenergan 25 mg Tablet] 25 mg PO Q12HP PRN 03/28/19 Trimethobenzamide HCl [Tigan 300 mg Capsule] 300 mg PO TIDP PRN 03/28/19 Atorvastatin Calcium [Lipitor 40 mg Tablet] 40 mg PO QHS #90 tablet 04/05/19 Hydralazine HCl [Apresoline 50 mg Tablet] 100 mg PO Q6 #90 tablet 04/05/19 Nifedipine [Procardia XL 30 mg Tablet] 120 mg PO BID #180 tab.er.24 04/05/19 Valsartan [Diovan 160 mg Tablet] 320 mg PO DAILY #90 tablet 04/05/19 Physical Exam Vital Signs: Temp Pulse Resp BP Pulse Ox 97.2 F 62 24 H 146/75 H 97 04/05/19 17:29 04/05/19 17:29 04/05/19 17:29 04/05/19 17:29 04/05/19 17:29 Intake & Output 04/04/19 04/05/19 04/06/19 06:59 06:59 06:59 Intake Total 1368 2086 840 Balance 1368 2086 840 Weight 140.6 kg 139.8 kg 139.8 kg Results Laboratory Results: WBC 5.9 10^3/uL (4.0-10.5) 04/01/19 03:46 RBC 4.15 10^6/uL (3.72-5.28) 04/01/19 03:46 Hgb 9.4 g/dL (12.0-15.5) L 04/01/19 03:46 Hct 30.8 % (36.0-47.0) L 04/01/19 03:46 MCV 74 fl (80-97) L 04/01/19 03:46 MCH 22.7 pg (27.0-33.4) L 04/01/19 03:46 MCHC 30.5 g/dL (32.0-36.0) L 04/01/19 03:46 RDW 18.7 % (11.5-14.0) H 04/01/19 03:46 Plt Count 310 10^3/uL (150-450) 04/01/19 03:46 Lymph % (Auto) 15.6 % (13-45) 04/01/19 03:46 [place] % (Auto) 11.8 % (3-13) 04/01/19 03:46 Eos % (Auto) 0.7 % (0-6) 04/01/19 03:46 Baso % (Auto) 1.1 % (0-2) 04/01/19 03:46 Absolute Neuts (auto) 4.2 10^3/uL (1.7-8.2) 04/01/19 03:46 Absolute Lymphs (auto) 0.9 10^3/uL (0.5-4.7) 04/01/19 03:46 Absolute Monos (auto) 0.7 10^3/uL (0.1-1.4) 04/01/19 03:46 Absolute Eos (auto) 0.0 10^3/uL (0.0-0.6) 04/01/19 03:46 Absolute Basos (auto) 0.1 10^3/uL (0.0-0.2) 04/01/19 03:46 Total Counted 100 03/31/19 04:07 Seg Neutrophils % 70.8 % (42-78) 04/01/19 03:46 Seg Neuts % (Manual) 69 % (42-78) 03/31/19 04:07 Lymphocytes % (Manual) 19 % (13-45) 03/31/19 04:07 Atypical Lymphs % 2 % (0) 03/28/19 05:36 Monocytes % (Manual) 10 % (3-13) 03/31/19 04:07 Eosinophils % (Manual) 2 % (0-6) 03/31/19 04:07 Basophils % (Manual) 0 % (0-2) 03/31/19 04:07 Abs Neuts (Manual) 3.3 10^3/uL (1.7-8.2) 03/31/19 04:07 Abs Lymphs (Manual) 0.9 10^3/uL (0.5-4.7) 03/31/19 04:07 Abs Monocytes (Manual) 0.5 10^3/uL (0.1-1.4) 03/31/19 04:07 Absolute Eos (Manual) 0.1 10^3/uL (0.0-0.6) 03/31/19 04:07 Abs Basophils (Manual) 0.0 10^3/uL (0.0-0.2) 03/31/19 04:07 Nucleated RBCs 1 /100 WBC (0) 03/30/19 04:10 Toxic Granulation 1+ 03/30/19 04:10 Toxic Vacuolation PRESENT 03/30/19 04:10 Large Platelets PRESENT 03/28/19 05:36 Platelet Comment ADEQUATE 03/31/19 04:07 Polychromasia 1+ 03/31/19 04:07 Hypochromasia SLIGHT 03/28/19 05:36 Poikilocytosis 2+ 03/30/19 04:10 Anisocytosis 1+ 03/31/19 04:07 Microcytosis 1+ 03/28/19 05:36 Target Cells SLIGHT 03/28/19 05:36 Tear Drop Cells SLIGHT 03/30/19 04:10 Ovalocytes SLIGHT 03/30/19 04:10 [place] Cells 1+ 03/30/19 04:10 Schistocytes SLIGHT 03/30/19 04:10 PT 16.0 SEC (11.4-15.4) H 03/29/19 10:20 INR 1.28 03/29/19 10:20 APTT 29.8 SEC (23.5-35.8) 03/29/19 10:20 Carbonic Acid 1.21 mmol/L (1.05-1.35) 03/30/19 10:40 HCO3/H2CO3 Ratio 16:1 03/30/19 10:40 ABG pH 7.31 (7.35-7.45) L 03/30/19 10:40 ABG pCO2 40.1 mmHg (35-45) 03/30/19 10:40 ABG pO2 91.1 mmHg (80-100) 03/30/19 10:40 ABG HCO3 19.7 mmol/L (20-24) L 03/30/19 10:40 ABG Total CO2 20.9 mmol/L (21-25) L 03/30/19 10:40 ABG O2 Saturation 96.3 % (94-98) 03/30/19 10:40 ABG Base Excess -6.1 mmol/L 03/30/19 10:40 VBG pH 7.38 (7.30-7.42) 03/27/19 21:03 VBG pCO2 37.2 mmHg (35-63) 03/27/19 21:03 VBG HCO3 21.5 mmol/L (20-32) 03/27/19 21:03 VBG Base Excess -3.2 mmol/L 03/27/19 21:03 FiO2 2L 03/30/19 10:40 Sodium 140.9 mmol/L (137-145) 04/02/19 05:54 Potassium 4.2 mmol/L (3.6-5.0) 04/02/19 05:54 Chloride 110 mmol/L (98-107) H 04/02/19 05:54 Carbon Dioxide 18 mmol/L (22-30) L 04/02/19 05:54 Anion Gap 13 (5-19) 04/02/19 05:54 BUN 34 mg/dL (7-20) H 04/02/19 05:54 Creatinine 2.60 mg/dL (0.52-1.25) H 04/02/19 05:54 Est GFR ( Amer) 24 (>60) L 04/02/19 05:54 Est GFR (MDRD) Non-Af 20 (>60) L 04/02/19 05:54 Glucose 100 mg/dL (75-110) 04/02/19 05:54 POC Glucose 161 mg/dL (70-110) H 03/29/19 09:32 Hemoglobin A1c % 5.5 % (4.7-6.0) 03/28/19 05:36 Lactic Acid 0.7 mmol/L (0.7-2.1) 03/27/19 21:03 Calcium 9.0 mg/dL (8.4-10.2) 04/02/19 05:54 Phosphorus 3.2 mg/dL (2.5-4.5) 03/27/19 17:16 Magnesium 1.8 mg/dL (1.6-2.3) 03/27/19 17:16 Total Bilirubin 0.5 mg/dL (0.2-1.3) 04/02/19 05:54 Direct Bilirubin 0.4 mg/dL (0.0-0.4) 04/02/19 05:54 Neonat Total Bilirubin Not Reportable 04/02/19 05:54 Neonat Direct Bilirubin Not Reportable 04/02/19 05:54 Neonat Indirect Bili Not Reportable 04/02/19 05:54 AST 25 U/L (14-36) 04/02/19 05:54 ALT 16 U/L (<35) 04/02/19 05:54 Alkaline Phosphatase 82 U/L (38-126) 04/02/19 05:54 Ammonia < 8.7 umol/L (9-33) L 03/30/19 11:51 Creatine Kinase 178 U/L (30-135) H 03/29/19 09:59 CK-MB (CK-2) 1.95 ng/mL (<4.55) 03/29/19 09:59 Troponin I 0.118 ng/mL 03/29/19 09:59 NT-Pro-B Natriuret Pep 9940 pg/mL (<125) H 03/29/19 09:59 Total Protein 7.2 g/dL (6.3-8.2) 04/02/19 05:54 Albumin 3.2 g/dL (3.5-5.0) L 04/02/19 05:54 Triglycerides 126 mg/dL (<150) 04/02/19 05:54 Cholesterol 120.62 mg/dL (0-200) 04/02/19 05:54 LDL Cholesterol Direct 61 mg/dL (<100) 04/02/19 05:54 VLDL Cholesterol 25.0 mg/dL (10-31) 04/02/19 05:54 HDL Cholesterol 36 mg/dL (>40) L 04/02/19 05:54 Lipase 332.6 U/L (23-300) H 03/27/19 17:16 TSH 2.55 uIU/mL (0.47-4.68) 03/30/19 04:10 Free T4 0.92 ng/dL (0.78-2.19) 03/30/19 04:10 Urine Color YELLOW 03/27/19 18:43 Urine Appearance CLEAR 03/27/19 18:43 Urine pH 6.0 (5.0-9.0) 03/27/19 18:43 Ur Specific [place] 1.018 03/27/19 18:43 Urine Protein >=500 mg/dL (NEGATIVE) H 03/27/19 18:43 Urine Glucose (UA) NEGATIVE mg/dL (NEGATIVE) 03/27/19 18:43 Urine Ketones NEGATIVE mg/dL (NEGATIVE) 03/27/19 18:43 Urine Blood SMALL (NEGATIVE) H 03/27/19 18:43 Urine Nitrite (Reflex) NEGATIVE (NEGATIVE) 03/27/19 18:43 Urine Bilirubin NEGATIVE (NEGATIVE) 03/27/19 18:43 Urine Urobilinogen NEGATIVE mg/dL (<2.0) 03/27/19 18:43 Leukocyte Esterase Rfl NEGATIVE (NEGATIVE) 03/27/19 18:43 Urine RBC (Auto) 0 /HPF 03/27/19 18:43 Urine WBC (Reflex) 5 /HPF 03/27/19 18:43 Squamous Epi Cells Auto 1 /HPF 03/27/19 18:43 Urine Mucus (Auto) RARE /LPF 03/27/19 18:43 Urine Creatinine 110.8 mg/dL (15-278) 03/27/19 18:43 Protein/Creatinin Ratio 9.6 mg/mg (0.0-0.2) H 03/27/19 18:43 Urine Total Protein 1067.0 mg/dL (<12) H 03/27/19 18:43 Urine Ascorbic Acid NEGATIVE (NEGATIVE) 03/27/19 18:43 Urine Opiates Screen NEGATIVE 03/27/19 18:43 Urine Methadone Screen NEGATIVE 03/27/19 18:43 Ur Barbiturates Screen NEGATIVE 03/27/19 18:43 Ur Phencyclidine Scrn NEGATIVE 03/27/19 18:43 Ur Amphetamines Screen NEGATIVE 03/27/19 18:43 U Benzodiazepines Scrn NEGATIVE 03/27/19 18:43 Urine Cocaine Screen NEGATIVE 03/27/19 18:43 U Marijuana (THC) Screen NEGATIVE 03/27/19 18:43 Influenza A (Rapid) NEGATIVE (NEGATIVE) 03/27/19 22:13 Influenza B (Rapid) NEGATIVE (NEGATIVE) 03/27/19 22:13 03/27/19 03/27/19 03/28/19 17:16 22:59 05:36 CK-MB (CK-2) 2.48 1.91 Troponin I 0.262 0.214 0.190 NT-Pro-B Natriuret Pep 49009 H 56752 H 03/28/19 03/29/19 11:05 09:59 CK-MB (CK-2) 1.66 1.95 Troponin I 0.167 0.118 NT-Pro-B Natriuret Pep 9940 H Impressions: Chest X-Ray 03/27/19 15:00 IMPRESSION: Cardiomegaly without pulmonary edema. Head MRI 03/29/19 00:00 IMPRESSION: SMALL FOCAL AREAS OF RESTRICTED DIFFUSION IN BOTH CEREBRAL H EMISPHERES DESCRIBED. GIVEN THE DIFFUSE BILATERAL DISTRIBUTION, THESE COULD BE EMBOLIC PHENOMENON. EVIDENCE OF ACUTE STROKE: YES. NO SINGLE VASCULAR DISTRIBUTION. Chest X-Ray 03/29/19 09:30 IMPRESSION: CARDIAC ENLARGEMENT. VASCULAR CONGESTION. Head CT 03/29/19 09:40 IMPRESSION: NORMAL BRAIN CT WITHOUT CONTRAST. EVIDENCE OF ACUTE STROKE: NO.
--- NOTE | 2019-04-05 21:26 | PDOC DISCHARGE SUMMARY ---
Impression - Admit/DC Date/PCP Admission Date/Primary Care Provider: 03/27/19 22:11 VJ LEBLANC MD Discharge Date: 04/05/19 - Discharge Diagnosis (1) Hypertensive emergency Is this a current diagnosis for this admission?: Yes (2) Nephrotic syndrome Is this a current diagnosis for this admission?: Yes (3) Cellulitis of leg Is this a current diagnosis for this admission?: Yes (4) Elevated troponin Is this a current diagnosis for this admission?: Yes (5) Chronic kidney disease, stage 3 Is this a current diagnosis for this admission?: Yes (7) Cerebral infarction Is this a current diagnosis for this admission?: Yes - Additional Information Resuscitation Status: Full Code Discharge Diet: As Tolerated Discharge Activity: Activity As Tolerated Referrals: FLAVIA MOORE MD [COMMUNITY BASED STAFF] - 08/01/19 10:00 am Prescriptions: Atorvastatin Calcium [Lipitor 40 mg Tablet] 40 mg PO QHS #90 tablet Hydralazine HCl [Apresoline 50 mg Tablet] 100 mg PO Q6 #90 tablet Aspirin [Aspirin 325 mg Tablet] 325 mg PO DAILY #90 tablet Valsartan [Diovan 160 mg Tablet] 320 mg PO DAILY #90 tablet Nifedipine [Procardia XL 30 mg Tablet] 120 mg PO BID #180 tab.er.24 Home Medications: Omeprazole [Prilosec] 40 mg PO BID 10/29/14 Clonidine HCl [Catapres] 0.3 mg PO Q8 05/09/15 Montelukast Sodium 10 mg PO QPM 05/09/15 Oxycodone HCl [Oxycodone HCl 10 MG Tablet] 10 mg PO Q6HP PRN 06/25/18 Albuterol Sulfate [Proair HFA Inhalation Aerosol 8.5 gm MDI] 2 puff IH QID 03/28/19 Butorphanol Tartrate 1 spray NASL DAILYP PRN MDD 1 SRAY PER DAY 03/28/19 Cetirizine HCl [Zyrtec 10 mg Tablet] 10 mg PO DAILY 03/28/19 Cuvposa 5 ml PO TID 03/28/19 Doxazosin Mesylate [Cardura 4 mg Tablet] 8 mg PO BID 03/28/19 Fluticasone/Salmeterol [Advair 500-50 Diskus 14 Dose/Diskus] 1 puff IH BID 03/28/19 Promethazine HCl [Phenergan 25 mg Tablet] 25 mg PO Q12HP PRN 03/28/19 Trimethobenzamide HCl [Tigan 300 mg Capsule] 300 mg PO TIDP PRN 03/28/19 Aspirin [Aspirin 325 mg Tablet] 325 mg PO DAILY #90 tablet 04/05/19 Atorvastatin Calcium [Lipitor 40 mg Tablet] 40 mg PO QHS #90 tablet 04/05/19 Hydralazine HCl [Apresoline 50 mg Tablet] 100 mg PO Q6 #90 tablet 04/05/19 Nifedipine [Procardia XL 30 mg Tablet] 120 mg PO BID #180 tab.er.24 04/05/19 Valsartan [Diovan 160 mg Tablet] 320 mg PO DAILY #90 tablet 04/05/19 History of Present Illiness History of Present Illness: LUCRETIA JOYCE is a 49 year old female,She came to the emergency room for evaluation of swelling, fever, shortness of breath, in the emergency room when she presented the systolic blood pressure was more than 200. Patient with a long history of poorly controlled blood pressure, the initial urinalysis demonstrated significant proteinuria, more than 500, the urine protein creatinine ratio, is 9.6 consistent with nephrotic syndrome. She also has severe cellulitis of both legs, there is tremendous anasarca affecting both legs the abdomen, she was also found to have elevated serum troponin. Hospital Course Hospital Course: Patient was admitted for the management of bilateral lower extremity cellulitis, nephrotic range proteinuria, hypertensive emergency. Patient presented with a blood pressure over 200 systolic, he was treated with medication for the control blood pressure, nitroglycerin infusion was initially to be used to treat the blood pressure elevation but patient refused because she said it causes headache so the nitroglycerin was never started. She also has anasarca due to nephrotic syndrome.The urine protein creatinine ratio was 9.6, this is consistent with 9.6 g urine excreted in 24 hours. She was treated with IV antibiotic clindamycin and also IV furosemide, the blood pressure dropped precipitously with resultant encephalopathy, rapid response was triggered because of the change in mental status she was then transferred to ICU. In ICU she was manage, MRI of the brain was done, it demonstrated small focal areas of restricted diffusion in the subcortical white matter of the right and left frontal and parietal lobes consistent with acute cerebral infarction. It was felt that the change in mental status was probably due to hypoperfusion from the precipitous drop of the blood pressure. She was ultimately downgraded to medical floor where she continued her stay until t discharge today.She was seen in consultation by nephrology, cardiology she required multiple drug to achieve reasonable blood pressure control, a 2D echo was done that demonstrated severe LVH consistent with hypertensive heart disease, she also has chronic renal disease stage III. Patient need complete therapeutic lifestyle change, aggressive weight loss exercise program dietary change I am not sure she will do all these things, this is what she needs to do to prevent adverse complication especially end-stage renal disease, CHF, stroke and .The cellulitis improved with IV antibiotic Physical Exam Vital Signs: Temp Pulse Resp BP Pulse Ox 97.2 F 62 24 H 146/75 H 97 04/05/19 17:29 04/05/19 17:29 04/05/19 17:29 04/05/19 17:29 04/05/19 17:29 Intake & Output 04/04/19 04/05/19 04/06/19 06:59 06:59 06:59 Intake Total 1368 2086 840 Balance 1368 2086 840 Weight 140.6 kg 139.8 kg 139.8 kg General appearance: PRESENT: no acute distress Eye exam: PRESENT: PERRLA Respiratory exam: PRESENT: clear to auscultation raúl Cardiovascular exam: PRESENT: +S1, +S2 GI/Abdominal exam: PRESENT: soft Neurological exam: PRESENT: alert Results Laboratory Results: WBC 5.9 10^3/uL (4.0-10.5) 04/01/19 03:46 RBC 4.15 10^6/uL (3.72-5.28) 04/01/19 03:46 Hgb 9.4 g/dL (12.0-15.5) L 04/01/19 03:46 Hct 30.8 % (36.0-47.0) L 04/01/19 03:46 MCV 74 fl (80-97) L 04/01/19 03:46 MCH 22.7 pg (27.0-33.4) L 04/01/19 03:46 MCHC 30.5 g/dL (32.0-36.0) L 04/01/19 03:46 RDW 18.7 % (11.5-14.0) H 04/01/19 03:46 Plt Count 310 10^3/uL (150-450) 04/01/19 03:46 Lymph % (Auto) 15.6 % (13-45) 04/01/19 03:46 [place] % (Auto) 11.8 % (3-13) 04/01/19 03:46 Eos % (Auto) 0.7 % (0-6) 04/01/19 03:46 Baso % (Auto) 1.1 % (0-2) 04/01/19 03:46 Absolute Neuts (auto) 4.2 10^3/uL (1.7-8.2) 04/01/19 03:46 Absolute Lymphs (auto) 0.9 10^3/uL (0.5-4.7) 04/01/19 03:46 Absolute Monos (auto) 0.7 10^3/uL (0.1-1.4) 04/01/19 03:46 Absolute Eos (auto) 0.0 10^3/uL (0.0-0.6) 04/01/19 03:46 Absolute Basos (auto) 0.1 10^3/uL (0.0-0.2) 04/01/19 03:46 Total Counted 100 03/31/19 04:07 Seg Neutrophils % 70.8 % (42-78) 04/01/19 03:46 Seg Neuts % (Manual) 69 % (42-78) 03/31/19 04:07 Lymphocytes % (Manual) 19 % (13-45) 03/31/19 04:07 Atypical Lymphs % 2 % (0) 03/28/19 05:36 Monocytes % (Manual) 10 % (3-13) 03/31/19 04:07 Eosinophils % (Manual) 2 % (0-6) 03/31/19 04:07 Basophils % (Manual) 0 % (0-2) 03/31/19 04:07 Abs Neuts (Manual) 3.3 10^3/uL (1.7-8.2) 03/31/19 04:07 Abs Lymphs (Manual) 0.9 10^3/uL (0.5-4.7) 03/31/19 04:07 Abs Monocytes (Manual) 0.5 10^3/uL (0.1-1.4) 03/31/19 04:07 Absolute Eos (Manual) 0.1 10^3/uL (0.0-0.6) 03/31/19 04:07 Abs Basophils (Manual) 0.0 10^3/uL (0.0-0.2) 03/31/19 04:07 Nucleated RBCs 1 /100 WBC (0) 03/30/19 04:10 Toxic Granulation 1+ 03/30/19 04:10 Toxic Vacuolation PRESENT 03/30/19 04:10 Large Platelets PRESENT 03/28/19 05:36 Platelet Comment ADEQUATE 03/31/19 04:07 Polychromasia 1+ 03/31/19 04:07 Hypochromasia SLIGHT 03/28/19 05:36 Poikilocytosis 2+ 03/30/19 04:10 Anisocytosis 1+ 03/31/19 04:07 Microcytosis 1+ 03/28/19 05:36 Target Cells SLIGHT 03/28/19 05:36 Tear Drop Cells SLIGHT 03/30/19 04:10 Ovalocytes SLIGHT 03/30/19 04:10 [place] Cells 1+ 03/30/19 04:10 Schistocytes SLIGHT 03/30/19 04:10 PT 16.0 SEC (11.4-15.4) H 03/29/19 10:20 INR 1.28 03/29/19 10:20 APTT 29.8 SEC (23.5-35.8) 03/29/19 10:20 Carbonic Acid 1.21 mmol/L (1.05-1.35) 03/30/19 10:40 HCO3/H2CO3 Ratio 16:1 03/30/19 10:40 ABG pH 7.31 (7.35-7.45) L 03/30/19 10:40 ABG pCO2 40.1 mmHg (35-45) 03/30/19 10:40 ABG pO2 91.1 mmHg (80-100) 03/30/19 10:40 ABG HCO3 19.7 mmol/L (20-24) L 03/30/19 10:40 ABG Total CO2 20.9 mmol/L (21-25) L 03/30/19 10:40 ABG O2 Saturation 96.3 % (94-98) 03/30/19 10:40 ABG Base Excess -6.1 mmol/L 03/30/19 10:40 VBG pH 7.38 (7.30-7.42) 03/27/19 21:03 VBG pCO2 37.2 mmHg (35-63) 03/27/19 21:03 VBG HCO3 21.5 mmol/L (20-32) 03/27/19 21:03 VBG Base Excess -3.2 mmol/L 03/27/19 21:03 FiO2 2L 03/30/19 10:40 Sodium 140.9 mmol/L (137-145) 04/02/19 05:54 Potassium 4.2 mmol/L (3.6-5.0) 04/02/19 05:54 Chloride 110 mmol/L (98-107) H 04/02/19 05:54 Carbon Dioxide 18 mmol/L (22-30) L 04/02/19 05:54 Anion Gap 13 (5-19) 04/02/19 05:54 BUN 34 mg/dL (7-20) H 04/02/19 05:54 Creatinine 2.60 mg/dL (0.52-1.25) H 04/02/19 05:54 Est GFR ( Amer) 24 (>60) L 04/02/19 05:54 Est GFR (MDRD) Non-Af 20 (>60) L 04/02/19 05:54 Glucose 100 mg/dL (75-110) 04/02/19 05:54 POC Glucose 161 mg/dL (70-110) H 03/29/19 09:32 Hemoglobin A1c % 5.5 % (4.7-6.0) 03/28/19 05:36 Lactic Acid 0.7 mmol/L (0.7-2.1) 03/27/19 21:03 Calcium 9.0 mg/dL (8.4-10.2) 04/02/19 05:54 Phosphorus 3.2 mg/dL (2.5-4.5) 03/27/19 17:16 Magnesium 1.8 mg/dL (1.6-2.3) 03/27/19 17:16 Total Bilirubin 0.5 mg/dL (0.2-1.3) 04/02/19 05:54 Direct Bilirubin 0.4 mg/dL (0.0-0.4) 04/02/19 05:54 Neonat Total Bilirubin Not Reportable 04/02/19 05:54 Neonat Direct Bilirubin Not Reportable 04/02/19 05:54 Neonat Indirect Bili Not Reportable 04/02/19 05:54 AST 25 U/L (14-36) 04/02/19 05:54 ALT 16 U/L (<35) 04/02/19 05:54 Alkaline Phosphatase 82 U/L (38-126) 04/02/19 05:54 Ammonia < 8.7 umol/L (9-33) L 03/30/19 11:51 Creatine Kinase 178 U/L (30-135) H 03/29/19 09:59 CK-MB (CK-2) 1.95 ng/mL (<4.55) 03/29/19 09:59 Troponin I 0.118 ng/mL 03/29/19 09:59 NT-Pro-B Natriuret Pep 9940 pg/mL (<125) H 03/29/19 09:59 Total Protein 7.2 g/dL (6.3-8.2) 04/02/19 05:54 Albumin 3.2 g/dL (3.5-5.0) L 04/02/19 05:54 Triglycerides 126 mg/dL (<150) 04/02/19 05:54 Cholesterol 120.62 mg/dL (0-200) 04/02/19 05:54 LDL Cholesterol Direct 61 mg/dL (<100) 04/02/19 05:54 VLDL Cholesterol 25.0 mg/dL (10-31) 04/02/19 05:54 HDL Cholesterol 36 mg/dL (>40) L 04/02/19 05:54 Lipase 332.6 U/L (23-300) H 03/27/19 17:16 TSH 2.55 uIU/mL (0.47-4.68) 03/30/19 04:10 Free T4 0.92 ng/dL (0.78-2.19) 03/30/19 04:10 Urine Color YELLOW 03/27/19 18:43 Urine Appearance CLEAR 03/27/19 18:43 Urine pH 6.0 (5.0-9.0) 03/27/19 18:43 Ur Specific [place] 1.018 03/27/19 18:43 Urine Protein >=500 mg/dL (NEGATIVE) H 03/27/19 18:43 Urine Glucose (UA) NEGATIVE mg/dL (NEGATIVE) 03/27/19 18:43 Urine Ketones NEGATIVE mg/dL (NEGATIVE) 03/27/19 18:43 Urine Blood SMALL (NEGATIVE) H 03/27/19 18:43 Urine Nitrite (Reflex) NEGATIVE (NEGATIVE) 03/27/19 18:43 Urine Bilirubin NEGATIVE (NEGATIVE) 03/27/19 18:43 Urine Urobilinogen NEGATIVE mg/dL (<2.0) 03/27/19 18:43 Leukocyte Esterase Rfl NEGATIVE (NEGATIVE) 03/27/19 18:43 Urine RBC (Auto) 0 /HPF 03/27/19 18:43 Urine WBC (Reflex) 5 /HPF 03/27/19 18:43 Squamous Epi Cells Auto 1 /HPF 03/27/19 18:43 Urine Mucus (Auto) RARE /LPF 03/27/19 18:43 Urine Creatinine 110.8 mg/dL (15-278) 03/27/19 18:43 Protein/Creatinin Ratio 9.6 mg/mg (0.0-0.2) H 03/27/19 18:43 Urine Total Protein 1067.0 mg/dL (<12) H 03/27/19 18:43 Urine Ascorbic Acid NEGATIVE (NEGATIVE) 03/27/19 18:43 Urine Opiates Screen NEGATIVE 03/27/19 18:43 Urine Methadone Screen NEGATIVE 03/27/19 18:43 Ur Barbiturates Screen NEGATIVE 03/27/19 18:43 Ur Phencyclidine Scrn NEGATIVE 03/27/19 18:43 Ur Amphetamines Screen NEGATIVE 03/27/19 18:43 U Benzodiazepines Scrn NEGATIVE 03/27/19 18:43 Urine Cocaine Screen NEGATIVE 03/27/19 18:43 U Marijuana (THC) Screen NEGATIVE 03/27/19 18:43 Influenza A (Rapid) NEGATIVE (NEGATIVE) 03/27/19 22:13 Influenza B (Rapid) NEGATIVE (NEGATIVE) 03/27/19 22:13 03/27/19 03/27/19 03/28/19 17:16 22:59 05:36 CK-MB (CK-2) 2.48 1.91 Troponin I 0.262 0.214 0.190 NT-Pro-B Natriuret Pep 57343 H 61202 H 03/28/19 03/29/19 11:05 09:59 CK-MB (CK-2) 1.66 1.95 Troponin I 0.167 0.118 NT-Pro-B Natriuret Pep 9940 H Impressions: Chest X-Ray 03/27/19 15:00 IMPRESSION: Cardiomegaly without pulmonary edema. Head MRI 03/29/19 00:00 IMPRESSION: SMALL FOCAL AREAS OF RESTRICTED DIFFUSION IN BOTH CEREBRAL HEMISPHERES DESCRIBED. GIVEN THE DIFFUSE BILATERAL DISTRIBUTION, THESE COULD BE EMBOLIC PHENOMENON. EVIDENCE OF ACUTE STROKE: YES. NO SINGLE VASCULAR DISTRIBUTION. Chest X-Ray 03/29/19 09:30 IMPRESSION: CARDIAC ENLARGEMENT. VASCULAR CONGESTION. Head CT 03/29/19 09:40 IMPRESSION: NORMAL BRAIN CT WITHOUT CONTRAST. EVIDENCE OF ACUTE STROKE: NO. Stroke Is this a Stroke Patient?: No Acute Heart Failure - Is this a Heart Failure Patient?: No
--- NOTE | 2019-04-05 21:52 | Progress Note ---
Provider Note Provider Note: CARDIOLOGY PROGRESS NOTE by Dr. Melani Drew on 04/05/2019. SUBJECTIVE: The patient denies any chest pain or discomfort. She is awake alert oriented x3. There is no shortness of breath. There is no PND orthopnea. Of note the patient's blood pressure early this morning was high since. The patient was on Catapres 0.3 mg p.o. 3 times daily. This has not been continued. I have restarted the patient on clonidine 0.3 mg p.o. every 6 hours with the dose being increased due to the patient's blood pressure being difficult to control. Already hydralazine is been increased 200 mg p.o. every 6 hours. There is no PND orthopnea or leg edema. There is no TIA CVA symptoms. PHYSICAL EXAMINATION: The patient is morbidly obese in no acute distress. Selected Entries 04/05/19 04/05/19 11:17 17:29 Temperature 97.2 F Pulse Rate 62 Respiratory 24 H Rate Blood Pressure 155/85 H Blood Pressure 146/75 H [Left Upper Arm ] Blood Pressure 108 Mean BP Location Right Arm BP Position Sitting O2 Sat by Pulse 100 97 Oximetry Oxygen Delivery Room Air Method HEAD: Is atraumatic normocephalic. EYES: Pupils are equal round regular reactive to light accommodation. Extraocular movements are normal. There is no conjunctival pallor. There is no scleral icterus. EARS: Tympanic membranes are intact. External auditory canals are clear. NOSE: There is no deviated nasal septum. There is no inflammation nasal mucous membrane. MOUTH: Mucous membranes of the mouth are moist. Tongue is moist. THROAT: There is no redness of the oropharynx there is no exudates. SKIN: There is no skin rashes there is no petechia or ecchymosis. NECK: Is supple. There is no JVD. Carotids are equal there is no bruit. Face: There is seems to be a mild left facial droop but the patient is able to wrinkle eyebrows. And raise both eyebrows NECK: Is supple. There is no JVD. Carotids are equal there is no bruits. THERE is no accessory muscle respiration use. LUNGS: Is clear to auscultation percussion. HEART: S1-S2 is heard. There is an S4 gallop present. There is no S3 gallop. There is systolic murmur left sternal border and the apex there is no rub. ABDOMEN: Soft. Obese. Nontender. There is no) megaly. Bowel sounds well heard. EXTREMITIES femorals are deep. There is no femoral bruits. LEG pulses are diminished. There is trace to mild pedal edema bilaterally. There is no DVT or cellulitis. There is no cyanosis or clubbing. OLERICULTURIST: The patient is conscious very drowsy but seems to be oriented x3. She is able to move all 4 extremities. PSYCHIATRIC: The patient does not appear to be anxious or agitated. IMPRESSION/RECOMMENDATION: 1. Altered mental status. Probable CVA suspected. CT T scan of the head is negative for CVA. do not believe that this is a CVA in spite of the MRI findings. The patient's altered mental status most likely secondary to hypotension in a patient who is usually used to a higher blood pressure levels. This is resolved. 2.. Elevated troponin I: Secondary to supply demand mismatch due to uncontrol led hypertension on admission. No definite evidence of non-ST relation CO. 3. Hypertension: Uncontrolled . At present her blood pressure is trolled after the increase of hydralazine to 100 mg p.o. every 6 hours and restarting the patient's clonidine but at an increased dose of 0.3 mg p.o. every 6 hours. 4. Chronic kidney disease stage III: Avoid nephrotoxic drugs. 5. Obstructive sleep apnea: Continue CPAP. 6. Of asymptomatic nonsustained V. tach. Patient is is at a low risk for sudden due to the fact she her LV ejection fraction is normal, and the patient has no prior history of sudden . 8. Morbid obesity. Medications reviewed. Medication increased hence the medical decision making is a moderate complexity. 40 minutes spent as patient more than 50% of time spent in direct patient care. The patient is desirous of going home discussed with Dr. Sheffield and at present the patient's blood pressure is better controlled, and fine-tuning of her blood pressure can be done as an outpatient. Agree with discharging the patient home the patient will follow-up with me within the next 10 days in my office. Will sign off.
[2019-04-05] MEDS ORDERED: METOPROLOL SUCCINATE 50 MG TAB.SR.24H PO SCH (22:00)
--- NOTE | 2019-04-07 10:52 | RADIOLOGY REPORT (SQ) ---
EXAM DESCRIPTION: CAROTID DOPPLER COMPLETED DATE/TIME: 03/31/2019 10:27 am REASON FOR STUDY: acute CVA COMPARISON: None. TECHNIQUE: Grayscale ultrasound, Doppler velocity and spectra, and color Doppler images acquired of the extra-cranial carotid and vertebral arteries. Images stored on PACS. LIMITATIONS: None. FINDINGS: RIGHT CAROTID CCA Velocities: Within normal limits. ICA Velocities Peak systolic 92 cm/s. End diastolic 48 cm/s. Proximal ICA/CCA peak systolic ratio 1.4. Spectra normal. No considerable plaque. LEFT CAROTID CCA Velocities: Within normal limits. ICA Velocities Peak systolic 127 cm/s. End diastolic 57 cm/s. Proximal ICA/CCA peak systolic ratio 1.6. Spectra normal. No considerable plaque. VERTEBRAL ARTERIES: Antegrade flow. Normal waveforms. SUBCLAVIAN ARTERIES: No finding. OTHER: No other finding. IMPRESSION: No hemodynamically significant stenosis. COMMENT: Quality ID #[id number]: Velocity criteria are extrapolated from the diameter data as defined by t j[employer] in Ultrasound Consensus Conference. Radiology 2003: 229; 340-346. TECHNICAL DOCUMENTATION: JOB ID: [id number] 2010 [employer]- All Rights Reserved Reading location - IP/workstation name: [email or web address]
== END 2019-04-05 18:00 | disposition home or self-care (01) | DRG 304 ==
LOC: ER 14:43 → EH 22:11 → 3S 03-28 06:30 → ICU 03-29 10:02 → 4W 04-01 09:48
PROVIDERS: ADMIT Internal Medicine; ATTEND Internal Medicine
PROC: 5A09357 Assistance with Respiratory Ventilation, Less than 24 Consecutive Hours, Continuous Positive Airway Pressure (ICD-10-PCS; principal; 2019-03-29)
DX: I16.1 Hypertensive emergency (principal); I63.9 Cerebral infarction, unspecified; G93.40 Encephalopathy, unspecified; N17.9 Acute kidney failure, unspecified; I47.2 Ventricular tachycardia; N04.9 Nephrotic syndrome with unspecified morphologic changes; L03.116 Cellulitis of left lower limb; L03.115 Cellulitis of right lower limb; Z68.42 Body mass index [BMI] 45.0-49.9, adult; I50.89 Other heart failure; D63.1 Anemia in chronic kidney disease; I13.10 Hypertensive heart and chronic kidney disease without heart failure, with stage 1 through stage 4 chronic kidney disease, or unspecified chronic kidney disease; N18.3 Chronic kidney disease, stage 3 (moderate); I95.9 Hypotension, unspecified; R79.89 Other specified abnormal findings of blood chemistry; I25.10 Atherosclerotic heart disease of native coronary artery without angina pectoris; I73.9 Peripheral vascular disease, unspecified; J45.909 Unspecified asthma, uncomplicated; K21.9 Gastro-esophageal reflux disease without esophagitis; M19.90 Unspecified osteoarthritis, unspecified site; K44.9 Diaphragmatic hernia without obstruction or gangrene; F31.9 Bipolar disorder, unspecified; F32.9 Major depressive disorder, single episode, unspecified; F43.10 Post-traumatic stress disorder, unspecified; F17.200 Nicotine dependence, unspecified, uncomplicated; G43.011 Migraine without aura, intractable, with status migrainosus; R80.9 Proteinuria, unspecified; G47.9 Sleep disorder, unspecified; R29.810 Facial weakness; I34.0 Nonrheumatic mitral (valve) insufficiency; I36.1 Nonrheumatic tricuspid (valve) insufficiency; R00.1 Bradycardia, unspecified; E66.01 Morbid (severe) obesity due to excess calories; G47.33 Obstructive sleep apnea (adult) (pediatric); Z79.82 Long term (current) use of aspirin; I25.2 Old myocardial infarction; Z84.1 Family history of disorders of kidney and ureter; Z88.6 Allergy status to analgesic agent; Z91.012 Allergy to eggs; Z88.8 Allergy status to other drugs, medicaments and biological substances; Z91.048 Other nonmedicinal substance allergy status
CPT/HCPCS: 36415; 36600; 70450; 70551; 71045; 71046; 80053; 80061; 80307; 81001; 82140; 82550; 82553; 82570; 82803; 82962; 83036; 83605; 83690; 83735; 83880; 84100; 84156; 84439; 84443; 84484; 85025; 85610; 85730; 87040; 87086; 87804; 93005; 93010; 93306; 93880; 93970; 94660; 96374; 96375; 99231; 99291; J0360; J1644; J1940; J2405; J3490; J7050